=== PATIENT | female | born 1990 | race Caucasian/White ===

== ENCOUNTER 2018-05-16 20:33 | Emergency (ER) | payer OTHER, SELFPAY ==
--- OUTSIDE RECORDS SUMMARY | 2018-05-16 20:36 | XMS REPORT ---
:1990 [facility] Address [address] [place] [address] Care Team Providers Name Role Phone UNKNOWN, REFFERING Primary Care Provider Unavailable JANNIE PICKARD Unavailable Unavailable Problems This patient has no known problems. Allergies, Adverse Reactions, Alerts This patient has no known allergies or adverse reactions. Medications This patient has no known medications. Results Test Description Test Time Test Comments Text Results Atomic Results Result Comments RPR, Qual 2016-09-20 03:21:00 Test Item Value Reference Range Comments RPR (test code=RPR) Non-Reactive Non-Reactive Thyroid Stimulating Hormone (TSH)2016-09-19 21:00:00 Test Item Value Reference Range Comments TSH (test code=TSH) 1.42 mIU/mL 0.270-4.200 [id number] 03:12:00 Test Item Value Reference Range Comments Amphetamine (test code=AMPH) Negative Negative For diagnostic purposes only, positive results should always be assessedin conjunctionwith the patient's medical history,clinical examination and otherfindings.To fulfill legal requirements, a more specific alternate chemical methodmust be used inorder to obtain a Confirmed analytical result. GC/MS is the preferred confirmatory method. Barbiturates (test code=STEFAN) Negative Negative Benzodiazepine (test Negative Negative code=SENTHIL) Cocaine (test code=COCA) Negative Negative Methadone (test code=MTHD) Negative Negative Opiates (test code=OPIA) Negative Negative PCP (test code=PCP) Negative Negative Propoxyphene (test Negative Negative code=PROPOX) THC (test code=THC) Negative Negative Alcohol, Urine (test <0.01 g/dL 0.00-0.01 code=ETOHU) BHCG, Serum, [id number] 02:02:00 Test Item Value Reference Range Comments Preg Qual [Se] (test code=BSHCG) POSITIVE Negative Alcohol/Ethanol, [id number] 01:51:00 Test Item Value Reference Range Comments Alcohol, Ethyl (test 0.00 g/dL 0.00-0.01 Intoxicated 0.080 g/dL or code=ETOH) more Urinalysis [id number] 00:18:00 Test Item Value Reference Range Comments Color (test code=COLOR) Yellow Yellow,Straw,Pl yellow Clarity (test code=CLAR) Clear Clear Specific [place] (test 1.031 1.001-1.035 code=SPGR) pH (test code=PH) 6.5 5.0-9.0 Ketone (test code=KET) 5 mg/dL Negative Glucose (test code=GLUCUR) Negative mg/dL Negative Protein (test code=PROT) Negative mg/dL Negative Bilirubin (test code=BILI) Negative mg/dL Negative Occult Blood (test Negative Negative code=UDOB) Urobilinogen (test 0.2 mg/dL 0.2-1.0 code=UROB) Nitrite (test code=NIT) Negative Negative Leuk Esterase (test Negative Negative code=LEUK) Micros Exam (test Indicated code=MEXAM) Epithelial Cells (test 10-14 /LPF 0-30 code=EPI) WBC, Urine (test code=UWBC) None seen /HPF 0-5 RBC, Urine (test code=URBC) None Seen /HPF 0-5 Bacteria (test code=BACT) Few /HPF Crystals (test code=AZAR) Few Calcium Oxalate /HPF Comprehensive Metabolic [id number] 00:16:00 Test Item Value Reference Range Comments Sodium (test code=NA) 137 mmol/L 135-145 Potassium (test code=K) 3.7 mmol/L 3.5-5.1 Chloride (test code=CL) 101 mmol/L 98-105 Carbon Dioxide (test 24 mmol/L 22-29 code=CO2) Glucose (test code=GLU) 86 mg/dL 70-115 Blood Urea Nitrogen 9 mg/dL 6-20 (test code=BUN) Creatinine (test 0.7 mg/dL 0.5-0.9 code=CREAT) Calcium (test code=CA) 9.2 mg/dL 8.3-10.5 Prot Total (test 6.6 g/dL 6.4-8.3 code=TP) Albumin (test code=ALB) 3.9 g/dL 3.5-5.2 A/G Ratio (test 1.4 Ratio code=AGRATIO) Globulin (test 2.7 2.9-3.1 code=GLOB) Bili Total (test <0.1 mg/dL 0.1-0.9 code=TBIL) Alk Phos (test 84 U/L 35-104 code=APHOS) AST (test code=AST) 20 U/L 1-32 ALT (test code=ALT) 28 U/L 1-33 BUN/Creatinine Ratio 12.9 (test code=BCRATIO) Anion Gap (test 12 mmol/L 7-16 code=AGAP) Estimated GFR (test >60 mL/min/1.73m2 eGFR (estimated Glomerular code=GFR) Filtration Rate) is an estimated value,calculated from the patient's serum creatinine using the MDRD equation.It is NOT the patient's actual GFR. The eGFR provides a more clinicallyuseful measure of kidney disease than serum creatinine alone.This calculation takes sex and race into account, if the informationis provided. If the race is not provided, and the patient isAfrican-[place], multiply by 1.212. If sex is not provided, and thepatient is female, multiply by 0.742. Results for patients <18 years ofage have not been validated by the MDRD study and should be interpretedwith caution.eGFR Result Interpretation:eGFR > or=60 is in the Normal RangeeGFR < 60 may mean kidney diseaseeGFR < 15 may mean kidney failureRanges recommended by the National Kidney Foundation,http://nkdep.nih .gov CBC with [id number] 00:03:00 Test Item Value Reference Range Comments WBC (test code=WBC) 9.1 K/cumm 4.4-10.5 RBC (test code=RBC) 4.35 M/cumm 3.75-5.20 Hemoglobin (test code=HGB) 12.4 gm/dL 12.2-14.8 Hematocrit (test code=HCT) 38.0 % 36.5-44.4 MCV (test code=MCV) 87.2 fL 80-100 MCH (test code=MCH) 28.4 pg 27.0-32.5 MCHC (test code=MCHC) 32.6 g/dL 32.0-37.5 RDW (test code=RDW) 15.6 % 11.5-14.5 Platelet Count (test code=PLTCT) 183 K/cumm 140-440 MPV (test code=MPV) 8.8 fL Diff Method (test code=DIFFM) Auto Neutrophil (test code=NEUT) 69.9 % 36-70 Lymphocyte (test code=LYMPH) 24.9 % 12-44 Monocyte (test code=MONO) 3.7 % 0-11 Eosinophil (test code=EOS) 1.2 % 0-7 Basophil (test code=BASO) 0.2 % 0-2 Neutro Abs (test code=ANEUT) 6.3 K/cumm 1.6-7.4 Lymph Abs (test code=ALYMPH) 2.3 K/cumm 0.5-4.6 [place] Abs (test code=AMONO) 0.3 K/cumm 0.0-1.2 Eos Abs (test code=AEOS) 0.11 K/cumm 0.00-0.74 Baso Abs (test code=ABASO) 0.0 K/cumm 0.00-0.21
[2018-05-16 21:23] LABS: Urine Blood NEGATIVE (NEG); Urine Glucose NEGATIVE (NEG); Urine Protein NEGATIVE (NEG)
[2018-05-16 21:29] LABS: Absolute Lymphocytes (CBC) 1.8 K/uL (0.7-4.9); Absolute Monocytes 0.5 K/uL (0.1-1.3); Absolute Neutrophil 3.7 K/uL (1.8-8.0); Basophils % 0.9 % (0-1.3); Eosinophils % 2.5 % (0-4.4); Hematocrit 41.1 % (36.0-45.0); Lymphocytes % 28.7 % (15.3-44.8); MPV 8.7 fL (7.6-11.3); Monocytes % 7.9 % (3.3-12.3); RBC Red Blood Cell Count 4.87 M/uL (3.86-4.86)
[2018-05-16 21:45] LABS: ALT/SGPT 25 U/L (12-78); AST/SGOT 19 U/L (15-37); Albumin 3.6 g/dL (3.4-5.0); Alkaline Phosphatase 98 U/L (45-117); BUN Blood Urea Nitrogen 10 mg/dL (7-18); Bicarbonate 26 mmol/L (21-32); Bilirubin Direct < 0.1 mg/dL (0-0.2); Bilirubin Total 0.1 mg/dL (0.2-1.0); Glucose Level 88 mg/dL (74-106); Lipase 109 U/L (73-393); Potassium 3.8 mmol/L (3.5-5.1); Protein, Total 7.3 g/dL (6.4-8.2); Sodium Level 141 mmol/L (136-145)
[2018-05-16] MEDS ORDERED: ONDANSETRON 4 MG/2 ML VIAL ONE (21:51)
[2018-05-16] MEDS ORDERED: MORPHINE 4 MG/ML SYR ONE (21:51)
--- NOTE | 2018-05-17 00:08 | ER ---
Nurse's Notes [facility] Name: Mikki Stevenson Age: 27 yrs Sex: Female : 1990 Arrival Date: 05/16/2018 Time: 20:36 Bed 23 Private MD: Jv Vivar Diagnosis: Biliary colic Presentation: 05/16 20:49 Presenting complaint: Patient states: right lower abd pain X2 hours. pt stated pain is ak1 intermittent after eating taco gallardo for dinner. pt c/o vomiting. pt stated she has had an IUD for 1 yr that has recently started giving her cramps sinc 2018. Transition of care: patient was not received from another setting of care. Onset of symptoms was May 16, 2018. Risk Assessment: Do you want to hurt yourself or someone else? Patient reports no desire to harm self or others. Care prior to arrival: None. 20:49 Method Of Arrival: Ambulatory ak1 20:49 Acuity: SOURAV 3 ak1 21:33 Initial Sepsis Screen: Does the patient meet any 2 criteria? No. Patient's initial mg2 sepsis screen is negative. Does the patient have a suspected source of infection? No. Patient's initial sepsis screen is negative. Triage Assessment: 20:51 General: Appears in no apparent distress. uncomfortable, obese, Behavior is cooperative.ak1 FACE BOSS: 20:[address], no cycles ak1 Historical: - Allergies: 20:51 Codeine; ak1 - Home Meds: 20:51 None [Active]; ak1 - PMHx: 20:51 Hypertension; ak1 - PSHx: 20:51 Appendectomy; ; Tonsillectomy; right arm sx s/p fx; ak1 - Immunization history:: Adult Immunizations unknown. - Social history:: Smoking status: Patient uses tobacco products, smokes one-half pack cigarettes per day. - Ebola Screening: : No symptoms or risks identified at this time. Screenin:52 Abuse screen: Denies threats or abuse. Denies injuries from another. Nutritional ak1 screening: No deficits noted. Tuberculosis screening: No symptoms or risk factors identified. Fall Risk None identified. Assessment: 21:27 General: Appears in no apparent distress. comfortable, Behavior is calm, cooperative. mg2 Pain: Complains of pain in RUQ Pain does not radiate. Pain currently is 6 out of 10 on a pain scale. Quality of pain is described as aching, squeezing, Pain began gradually, 2 hours ago. Is intermittent. Neuro: Level of Consciousness is awake, alert, obeys commands, Oriented to person, place, time, situation. Cardiovascular: Capillary refill < 3 seconds Patient's skin is warm and dry. Respiratory: Airway is patent Respiratory effort is even, unlabored, Respiratory pattern is regular, symmetrical. GI: Abdomen is round non-distended, Abd is soft X 4 quads in abdomen diffusely. : No signs and/or symptoms were reported regarding the genitourinary system. EENT: No signs and/or symptoms were reported regarding the EENT system. Derm: Skin is intact, is healthy with good turgor, Skin is pink, warm \T\ dry. normal. Musculoskeletal: Circulation, motion, and sensation intact. Capillary refill < 3 seconds. 05/17 00:30 Reassessment: Patient denies pain at this time. Patient states feeling better. mg2 Vital Signs: 04 20:51 BP 132 / 81; Pulse 75; Resp 20; Temp 98.0(TE); Pulse Ox 98% on R/A; Weight 113.4 kg ak1 (R); Height 5 ft. 2 in. (157.48 cm) (R); Pain 10/10; 23:00 BP 123 / 69; Pulse 65; Resp 18; Pulse Ox 100% on R/A; mg2 20:51 Body Mass Index 45.73 (113.40 kg, 157.48 cm) ak1 ED Course: 20:36 Patient arrived in ED. es 20:37 Jv Vivar MD is Private Physician. es 20:50 Triage completed. ak1 20:51 Arm band placed on Patient placed in an exam room, on a stretcher, Patient notified of ak1 wait time. 20:52 Benton Henry MD is Attending Physician. tw4 20:52 Moe Gaines, JANEEN is Primary Nurse. mg2 20:52 Patient has correct armband on for positive identification. Bed in low position. Call ak1 light in reach. Side rails up X 1. Adult w/ patient. 21:13 Initial lab(s) drawn, by me, sent to lab. Inserted saline lock: 22 gauge in right lt1 antecubital area, using aseptic technique. 21:33 No provider procedures requiring assistance completed. mg2 21:42 US Abdomen Limited In Process Unspecified. EDMS 21:47 Patient moved back from ultrasound. hilaria 05/17 00:06 Jv Vviar MD is Referral Physician. tw4 00:06 Spike Samuels MD is Referral Physician. tw4 00:30 IV discontinued, intact, bleeding controlled, No redness/swelling at site. Pressure mg2 dressing applied. Administered Medications: 05/16 21:44 Drug: morphine 4 mg Route: IVP; Site: right antecubital; mg2 23:00 Follow up: Response: No adverse reaction; Marked relief of symptoms mg2 21:44 Drug: Zofran 4 mg Route: IVP; Site: right antecubital; mg2 23:00 Follow up: Response: No adverse reaction; Marked relief of symptoms mg2 Outcome: 05/17 00:07 Discharge ordered by . tw4 00:31 Discharged to home ambulatory, with family. mg2 00:31 Condition: stable 00:31 Discharge instructions given to patient, family, Instructed on discharge instructions, follow up and referral plans. medication usage, Demonstrated understanding of instructions, follow-up care, medications, Prescriptions given X 1. 00:31 Patient left the ED. mg2 Signatures: Dispatcher [employer] Nadia Woods Amber, RN RN ak1 Fareed Piedra jd, Terrence, MD MD tw4 Moe Gaines RN RN mg2 Bambi Long lt1
--- NOTE | 2018-05-17 00:09 | EDPHYS ---
Physician Documentation [facility] Name: Mikki Stevenson Age: 27 yrs Sex: Female : 1990 Arrival Date: 05/16/2018 Time: 20:36 Bed 23 Private MD: Jv Vivar ED Physician Benton Henry HPI: 05/17 00:03 This 27 yrs old Female presents to ER via Ambulatory with complaints of Side tw4 pain. 00:03 The patient presents with abdominal pain in the right upper quadrant. Onset: The tw4 symptoms/episode began/occurred today. The symptoms do not radiate. Associated signs and symptoms: none. The symptoms are described as sharp, shooting. Modifying factors: The symptoms are alleviated by remaining still, the symptoms are aggravated by coughing, breathing deeply, movement, pressure. Severity of pain: At its worst the pain was moderate in the emergency department the pain is unchanged. The patient has not experienced similar symptoms in the past. [employer] SPECIALIST: 05/16 20:[address], no cycles ak1 Historical: - Allergies: 20:51 Codeine; ak1 - Home Meds: 20:51 None [Active]; ak1 - PMHx: 20:51 Hypertension; ak1 - PSHx: 20:51 Appendectomy; ; Tonsillectomy; right arm sx s/p fx; ak1 - Immunization history:: Adult Immunizations unknown. - Social history:: Smoking status: Patient uses tobacco products, smokes one-half pack cigarettes per day. - Ebola Screening: : No symptoms or risks identified at this time. ROS: 05/17 00:03 Constitutional: Negative for fever, chills, and weight loss, Eyes: Negative for injury, tw4 pain, redness, and discharge, Cardiovascular: Negative for chest pain, palpitations, and edema, Respiratory: Negative for shortness of breath, cough, wheezing, and pleuritic chest pain, Back: Negative for injury and pain, MS/Extremity: Negative for injury and deformity, Skin: Negative for injury, rash, and discoloration. Neuro: Negative for headache, weakness, numbness, tingling, and seizure. Abdomen/GI: Positive for abdominal pain, nausea and vomiting, nausea, vomiting, and diarrhea, nausea, vomiting, Negative for constipation, black/tarry stool, rectal pain, rectal bleeding, bowel incontinence. Exam: 00:03 Constitutional: This is a well developed, well nourished patient who is awake, alert, tw4 and in no acute distress. Head/Face: Normocephalic, atraumatic. Chest/axilla: Normal chest wall appearance and motion. Nontender with no deformity. No lesions are appreciated. Cardiovascular: Regular rate and rhythm with a normal S1 and S2. No gallops, murmurs, or rubs. Normal PMI, no JVD. No pulse deficits. Respiratory: Lungs have equal breath sounds bilaterally, clear to auscultation and percussion. No rales, rhonchi or wheezes noted. No increased work of breathing, no retractions or nasal flaring. Back: No spinal tenderness. No costovertebral tenderness. Full range of motion. Skin: Warm, dry with normal turgor. Normal color with no rashes, no lesions, and no evidence of cellulitis. MS/ Extremity: Pulses equal, no cyanosis. Neurovascular intact. Full, normal range of motion. Neuro: Awake and alert, GCS 15, oriented to person, place, time, and situation. Cranial nerves II-XII grossly intact. Motor strength 5/5 in all extremities. Sensory grossly intact. Cerebellar exam normal. Normal gait. 00:03 Abdomen/GI: Inspection: abdomen appears normal, Bowel sounds: normal, Palpation: moderate abdominal tenderness, in the right upper quadrant. Vital Signs: 05/16 20:51 BP 132 / 81; Pulse 75; Resp 20; Temp 98.0(TE); Pulse Ox 98% on R/A; Weight 113.4 kg ak1 (R); Height 5 ft. 2 in. (157.48 cm) (R); Pain 10/10; 23:00 BP 123 / 69; Pulse 65; Resp 18; Pulse Ox 100% on R/A; mg2 20:51 Body Mass Index 45.73 (113.40 kg, 157.48 cm) ak1 MDM: 20:52 Patient medically screened. tw4 05/17 00:03 Differential diagnosis: acute coronary syndrome, appendicitis, bowel obstruction. Data tw4 reviewed: vital signs, nurses notes. Counseling: I had a detailed discussion with the patient and/or guardian regarding: the historical points, exam findings, and any diagnostic results supporting the discharge/admit diagnosis, lab results, radiology results. Medication response: morphine markedly relieved the patient's pain. Symptoms have improved. Response to treatment: the patient's symptoms have mildly improved after treatment. 05/16 20:53 Order name: Basic Metabolic Panel; Complete Time: 23:53 mg2 05/16 23:53 Interpretation: Normal except: GFR 78. rust 05/16 20:53 Order name: CBC with Diff; Complete Time: 23:53 mg2 05/16 23:53 Interpretation: Normal except: RBC 4.87. tw4 05/16 20:53 Order name: Creatinine for Radiology; Complete Time: 23:54 mg2 05/16 23:54 Interpretation: Within normal limits: CRE 0.87. 4 05/16 20:53 Order name: Hepatic Function; Complete Time: 23:53 mg2 05/16 23:54 Interpretation: Normal except: BILIT 0.1; GLOB 3.7; A/G 1.0. rust 05/16 20:53 Order name: Lipase; Complete Time: 23:54 [facility] [place] 05/16 23:54 Interpretation: Within normal limits: LIP 109. tw4 05/16 21:14 Order name: Urine Dipstick--Ancillary (enter results); Complete Time: 23:54 ms 05/16 23:54 Interpretation: Within normal limits. rust 05/16 20:53 Order name: IV Saline Lock; Complete Time: 21:13 mg2 05/16 20:53 Order name: Labs collected and sent; Complete Time: 21:13 mg2 05/16 20:54 Order name: Urine Dipstick-Ancillary (obtain specimen); Complete Time: 21:04 [facility] [place] 05/16 21:14 Order name: Urine --Ancillary (enter results) ms 05/16 21:27 Order name: US Abdomen Limited tw4 Administered Medications: 05/16 21:44 Drug: morphine 4 mg Route: IVP; Site: right antecubital; mg2 23:00 Follow up: Response: No adverse reaction; Marked relief of symptoms mg2 21:44 Drug: Zofran 4 mg Route: IVP; Site: right antecubital; mg2 23:00 Follow up: Response: No adverse reaction; Marked relief of symptoms mg2 Disposition: 05/17/18 00:07 Discharged to Home. Impression: Biliary colic. - Condition is Stable. - Discharge Instructions: Biliary Colic, Adult. - Prescriptions for Ibuprofen 800 mg Oral Tablet - take 1 tablet by ORAL route every 8 hours As needed take with food; 30 tablet. - Medication Reconciliation Form, Thank You Letter, Antibiotic Education, Prescription Opioid Use form. - Follow up: Jv Vivar MD; When: Upon discharge from the Emergency Department; Reason: If symptoms return, Recheck today's complaints, Continuance of care. Follow up: Spike Samuels MD; When: Upon discharge from the Emergency Department; Reason: If symptoms return, Recheck today's complaints, Continuance of care. - Problem is new. - Symptoms have improved. Signatures: Dispatcher [employer] EDMS Nohemi Lubin RN RN ak1 Benton Henry MD MD tw4 Moe Gaines RN RN mg2 Corrections: (The following items were deleted from the chart) 05/17 00:31 00:07 05/17/2018 00:07 Discharged to Home. Impression: Biliary colic. Condition is mg2 Stable. Forms are Medication Reconciliation Form, Thank You Letter, Antibiotic Education, Prescription Opioid Use. Follow up: Jv Vivar; When: Upon discharge from the Emergency Department; Reason: If symptoms return, Recheck today's complaints, Continuance of care. Follow up: Spike Samuels; When: Upon discharge from the Emergency Department; Reason: If symptoms return, Recheck today's complaints, Continuance of care. Problem is new. Symptoms have improved. tw4
--- NOTE | 2018-05-17 11:00 | RAD REPORT ---
EXAM DESCRIPTION: US - Abdomen Exam Limited - 05/16/2018 9:41 pm EXAM DESCRIPTION: Abdomen Exam Limited CLINICAL HISTORY: 27 years Female, ABD PAIN COMPARISON: None. FINDINGS: Liver: There is diffuse increased echotexture suggestive of fatty liver infiltration. Gallbladder: There is a stone within the gallbladder neck measuring 0.8 cm in diameter. The gallbladd er is nondistended. The gallbladder wall measures 0.3 cm which is within normal limits given lack of gallbladder distention. Common bile duct: Normal caliber measuring 0.4 cm in AP diameter. IMPRESSION: 1. There is a stone within the gallbladder neck with no objective findings of cholecysti tis at this time. A HIDA scan may be of additional benefit. 2. Diffuse fatty liver infiltration. Electronically signed by: Mitch Goldberg MD 05/16/2018 11:32 PM CDT Due to temporary technical issues with the PACS/Fluency reporting system, reports are being signed by the in house radiologist as a courtesy to ensure prompt reporting. The interpreting radiologist is f ully responsible for the content of the report.
== END 2018-05-17 00:31 | disposition home or self-care (01) ==
LOC: ER 20:33
DX: K80.50 Calculus of bile duct without cholangitis or cholecystitis without obstruction (principal); I10 Essential (primary) hypertension; F17.210 Nicotine dependence, cigarettes, uncomplicated; Z91.048 Other nonmedicinal substance allergy status
CPT/HCPCS: 36415; 76705; 80048; 80076; 81003; 81025; 83690; 85025; 96374; 96375; 99284; J2405

== ENCOUNTER 2018-11-14 09:33 | Emergency (ER) | payer OTHER ==
[2018-11-14] MEDS ORDERED: KETOROLAC 30 MG/ML INJ ONE (10:44)
[2018-11-14 11:00] LABS: Absolute Lymphocytes (CBC) 1.8 K/uL (0.7-4.9); Basophils % 0.8 % (0-1.3); Hematocrit 39.9 % (36.0-45.0); Lymphocytes % 30.7 % (15.3-44.8); MPV 8.5 fL (7.6-11.3); RBC Red Blood Cell Count 4.69 M/uL (3.86-4.86)
[2018-11-14] MEDS ORDERED: VANCOMYCIN/NS 1 gm 1 GM/250 ML BAG IV ONE (11:00)
--- NOTE | 2018-11-14 15:59 | ER ---
Nurse's Notes [facility] Name: Mikki Stevenson Age: 27 yrs Sex: Female : 1990 Arrival Date: 11/14/2018 Time: 09:38 Bed 8 Private MD: Jv Vivar Diagnosis: Conjunctivitis Presentation: 11/14 09:42 Presenting complaint: Patient states: I have had right eye swelling since , I la1 went to there ER on Wednesday and they gave me eye drops but my eye is much more swollen and painful, the light hurts it too. Transition of care: patient was not received from another setting of care. Onset of symptoms was November 14, 2018. Risk Assessment: Do you want to hurt yourself or someone else? Patient reports no desire to harm self or others. Initial Sepsis Screen: Does the patient meet any 2 criteria? No. Patient's initial sepsis screen is negative. Does the patient have a suspected source of infection? No. Patient's initial sepsis screen is negative. Care prior to arrival: None. 09:42 Method Of Arrival: Ambulatory la1 09:42 Acuity: SOURAV 2 la1 TEST RIDER: 19:20 LMP N/A - . tw2 Historical: - Allergies: 19:20 Codeine; tw2 - PMHx: 19:20 Hypertension; tw2 - Immunization history:: Adult Immunizations. - Social history:: Smoking status: Patient/guardian denies using alcohol, street drugs, The patient lives with family. - Ebola Screening: : Patient denies travel to an Ebola-affected area in the 21 days before illness onset. - Family history:: not pertinent. Screenin:07 Abuse screen: Denies threats or abuse. Nutritional screening: No deficits noted. tw2 Tuberculosis screening: No symptoms or risk factors identified. Fall Risk None identified. Assessment: 10:08 General: Appears in no apparent distress. comfortable, Behavior is calm, cooperative, aj1 appropriate for age. Pain: Complains of pain in right eye Pain does not radiate. Pain currently is 7 out of 10 on a pain scale. Neuro: Level of Consciousness is awake, alert, obeys commands, Oriented to person, place, time, situation, Reports blurred vision. Cardiovascular: Patient's skin is warm and dry. Respiratory: Airway is patent Respiratory effort is even, unlabored, Respiratory pattern is regular, symmetrical. GI: No signs and/or symptoms were reported involving the gastrointestinal system. : No signs and/or symptoms were reported regarding the genitourinary system. EENT: Eyes are tearing on right lower eyelid Sclera/Cornea are reddened in outer aspect of conjuctiva of right eye and inner aspect of conjuctiva of right eye redness and swelling noted around right eye. Derm: No signs and/or symptoms reported regarding the dermatologic system. Skin is pink, warm \T\ dry. normal. Musculoskeletal: No signs and/or symptoms reported regarding the musculoskeletal system. Circulation, motion, and sensation intact. 10:46 Reassessment: pt given 30 mg Toradal IV at this time, order faxed to pharmacy for tw2 Vancomycin 1 gm IV at this time, pt states she has an appt with Dr. Reddy at noon today. 11:07 Reassessment: Patient appears in no apparent distress at this time. No changes from tw2 previously documented assessment. Patient and/or family updated on plan of care and expected duration. Pain level reassessed. Patient is alert, oriented x 3, equal unlabored respirations, skin warm/dry/pink. 11:59 Reassessment: Patient appears in no apparent distress at this time. No changes from tw2 previously documented assessment. Patient and/or family updated on plan of care and expected duration. Pain level reassessed. Patient is alert, oriented x 3, equal unlabored respirations, skin warm/dry/pink. 12:07 Reassessment: Vancomycin 1 GM initiated to left AC IV. aj1 13:00 Reassessment: Patient appears in no apparent distress at this time. No changes from aj1 previously documented assessment. Patient and/or family updated on plan of care and expected duration. Pain level reassessed. Patient is alert, oriented x 3, equal unlabored respirations, skin warm/dry/pink. 13:55 Reassessment: Patient appears in no apparent distress at this time. No changes from aj1 previously documented assessment. Patient and/or family updated on plan of care and expected duration. Pain level reassessed. Patient is alert, oriented x 3, equal unlabored respirations, skin warm/dry/pink. Vancomycin is still infusing at this time. Will discharge patient as soon as infusion is completed. 14:22 Reassessment: Patient appears in no apparent distress at this time. No changes from aj1 previously documented assessment. Patient and/or family updated on plan of care and expected duration. Pain level reassessed. Patient is alert, oriented x 3, equal unlabored respirations, skin warm/dry/pink. Vital Signs: 09:49 BP 120 / 84; Pulse 86; Resp 16; Temp 97.4; Pulse Ox 100% on R/A; la1 11:07 BP 99 / 51; Pulse 74; Resp 17; Pulse Ox 98% on R/A; tw2 11:59 BP 97 / 64; Pulse 66; Resp 17; Pulse Ox 99% on R/A; tw2 13:00 BP 106 / 67; Pulse 75; Resp 18; Pulse Ox 100% on R/A; aj1 Visual Acuity: 09:56 Left Eye Visual acuity 20/30, Pupil size 4 mm, ; Right Eye Visual acuity 20/70, Pupil la1 size 4 mm, ; Both Eyes Visual acuity 20/30; Without Lenses; ED Course: 09:38 Patient arrived in ED. as 09:38 Jv Vivar MD is Private Physician. as 09:43 Triage completed. la1 09:49 Arm band placed on left wrist. la1 09:53 Gloria Lloyd, RN is Primary Nurse. tw2 10:07 Primary Nurse role handed off by Gloria Lloyd, RN aj1 10:07 Shalini Robin, RN is Primary Nurse. aj1 10:08 Bed in low position. Call light in reach. tw2 10:17 Bahman Adams MD is Attending Physician. ma2 10:42 Initial lab(s) drawn, by ky, sent to lab. Inserted saline lock: 22 gauge in right jb1 antecubital area, using aseptic technique. Blood collected. 12:00 Russel Estrada MD is Referral Physician. ma2 12:13 Awaiting: completion of IV abx prior to discharge. tw2 14:22 No provider procedures requiring assistance completed. IV discontinued, intact, aj1 bleeding controlled, No redness/swelling at site. Pressure dressing applied. Administered Medications: No medications were administered Outcome: 12:01 Discharge ordered by . ma2 14:22 Discharged to home ambulatory. aj1 14:22 Condition: good 14:22 Discharge instructions given to patient, Instructed on discharge instructions, follow up and referral plans. medication usage, Demonstrated understanding of instructions, follow-up care, medications, Prescriptions given X 1. 14:22 Patient left the ED. aj1 Signatures: Adria Barry1 Shalini Robin RN RN aj1 Bev Samuels Lee, RN RN la1 Gloria Lloyd RN RN tw2 Bahman Adams MD MD ma2
--- NOTE | 2018-11-14 15:59 | EDPHYS ---
Physician Documentation [facility] Name: Mikki Stevenson Age: 27 yrs Sex: Female : 1990 Arrival Date: 11/14/2018 Time: 09:38 Bed 8 Private MD: Jv Vivar ED Physician Bahman Adams HPI: 11/14 11:56 This 27 yrs old Female presents to ER via Ambulatory with complaints of Eye ma2 Swelling. 11:56 Onset: The symptoms/episode began/occurred gradually, 1 week(s) ago. Duration: the ma2 symptoms are continuous. Associated signs and symptoms: Pertinent positives: None. Severity of symptoms: At their worst the symptoms were moderate in the emergency department the symptoms are unchanged. The patient has not experienced similar symptoms in the past. has right eye pain and redness x 1 week, mild constant . 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 tw2 Historical: - Allergies: 19:20 Codeine; tw2 - PMHx: 19:20 Hypertension; tw2 - Immunization history:: Adult Immunizations. - Social history:: Smoking status: Patient/guardian denies using alcohol, street drugs, The patient lives with family. - Ebola Screening: : Patient denies travel to an Ebola-affected area in the 21 days before illness onset. - Family history:: not pertinent. ROS: 11:56 Constitutional: Negative for fever, chills, and weight loss. ma2 11:56 Eyes: Positive for blurry vision, discharge, tearing, Negative for itching, pain. 11:56 All other systems are negative. Exam: 11:56 Visual Acuity: Visual acuity is within normal limits. ma2 11:56 Constitutional: This is a well developed, well nourished patient who is awake, alert, and in no acute distress. Head/Face: Normocephalic, atraumatic. 11:56 ENT: Nares patent. No nasal discharge, no septal abnormalities noted. Tympanic membranes are normal and external auditory canals are clear. Oropharynx with no redness, swelling, or masses, exudates, or evidence of obstruction, uvula midline. Mucous membranes moist. Neck: Trachea midline, no thyromegaly or masses palpated, and no cervical lymphadenopathy. Supple, full range of motion without nuchal rigidity, or vertebral point tenderness. No Meningismus. Chest/axilla: Normal chest wall appearance and motion. Nontender with no deformity. No lesions are appreciated. Cardiovascular: Regular rate and rhythm with a normal S1 and S2. No gallops, murmurs, or rubs. Normal PMI, no JVD. No pulse deficits. Respiratory: Lungs have equal breath sounds bilaterally, clear to auscultation and percussion. No rales, rhonchi or wheezes noted. No increased work of breathing, no retractions or nasal flaring. Abdomen/GI: Soft, non-tender, with normal bowel sounds. No distension or tympany. No guarding or rebound. No evidence of tenderness throughout. Skin: Warm, dry with normal turgor. Normal color with no rashes, no lesions, and no evidence of cellulitis. MS/ Extremity: Pulses equal, no cyanosis. Neurovascular intact. Full, normal range of motion. 11:56 Eyes: Periorbital structures: cellulitis, Pupils: equal, round, and reactive to light and accomodation, Extraocular movements: intact throughout, Conjunctiva: injected, in the right eye, tearing noted, Corneas: are normal, Sclera: no appreciated abnormality, Anterior chamber: normal, Visual armstrong: are intact. Vital Signs: 09:49 BP 120 / 84; Pulse 86; Resp 16; Temp 97.4; Pulse Ox 100% on R/A; la1 11:07 BP 99 / 51; Pulse 74; Resp 17; Pulse Ox 98% on R/A; tw2 11:59 BP 97 / 64; Pulse 66; Resp 17; Pulse Ox 99% on R/A; tw2 13:00 BP 106 / 67; Pulse 75; Resp 18; Pulse Ox 100% on R/A; aj1 Visual Acuity: 09:56 Left Eye Visual acuity 20/30, Pupil size 4 mm, ; Right Eye Visual acuity 20/70, Pupil la1 size 4 mm, ; Both Eyes Visual acuity 20/30; Without Lenses; MDM: 10:17 Patient medically screened. ma2 11:56 Differential diagnosis: Foreign body in Acute iritis of Data reviewed: vital signs, ma2 nurses notes. Counseling: I had a detailed discussion with the patient and/or guardian regarding: the historical points, exam findings, and any diagnostic results supporting the discharge/admit diagnosis, the presence of at least one elevated blood pressure reading (>120/80) during this emergency department visit, radiology results, the need for outpatient follow up. Response to treatment: the patient's symptoms have markedly improved after treatment. ED course: i called dr. ramos who advised to send her to clinic now. he will advise in regard to further management and take it over in his office, i explained to her to return to er in this is getting worse as she may need to be transferred to inpatient optha . Administered Medications: No medications were administered Disposition: 11/14/18 12:01 Discharged to Home. Impression: Conjunctivitis. - Condition is Stable. - Discharge Instructions: Preseptal Cellulitis, Adult. - Prescriptions for Augmentin 875- 125 mg Oral Tablet - take 1 tablet by ORAL route every 12 hours for 10 days; 20 tablet. - Medication Reconciliation Form, Thank You Letter, Antibiotic Education, Prescription Opioid Use form. - Follow up: Russel Ramos MD; When: Today; Reason: Continuance of care. - Notes: see dr. Ramos at 1 pm today in his office Signatures: Shalini Robin RN RN aj1 Gloria Lloyd RN RN tw2 Bahman Adams MD MD ma2 Corrections: (The following items were deleted from the chart) 14:22 12:01 11/14/2018 12:01 Discharged to Home. Impression: Conjunctivitis. Condition is aj1 Stable. Forms are Medication Reconciliation Form, Thank You Letter, Antibiotic Education, Prescription Opioid Use. Follow up: Russel Ramos; When: Today; Reason: Continuance of care. ma2
[2018-11-14 18:42] VITALS: TEMP 97.4
[2018-11-14 18:45] VITALS: BP 106/67; O2SAT 100
== END 2018-11-14 14:22 | disposition home or self-care (01) ==
LOC: ER 09:33
DX: H10.9 Unspecified conjunctivitis (principal); Z88.6 Allergy status to analgesic agent
CPT/HCPCS: 85025; 36415; 99283; J3370

== ENCOUNTER 2019-02-13 00:56 | Emergency (ER) | payer OTHER, SELFPAY ==
--- OUTSIDE RECORDS SUMMARY | 2019-02-13 00:59 | XMS REPORT ---
:1990 [facility] Address [address] [place] [address] Care Team Providers Name Role Phone UNKNOWN, REFFERING Primary Care Provider Unavailable JANNIE PICKARD Unavailable Unavailable Payers Payer Name Policy Type Policy Number Effective Date Expiration Date Problems This patient has no known problems. Allergies, Adverse Reactions, Alerts Allergy Allergy Status Severity Reaction(s) Onset Inactive Treating Comments Name Type Date Date Clinician codeine DA Active U 2017-01 00:00:0 0 Medications This patient has no known medications. Results Test Description Test Time Test Comments Text Results Atomic Results Result Comments RPR, Qual 2016-09-20 03:21:00 Test Item Value Reference Range Comments RPR (test code=RPR) Non-Reactive Non-Reactive Thyroid Stimulating Hormone (TSH)2016-09-19 21:00:00 Test Item Value Reference Range Comments TSH (test code=TSH) 1.42 mIU/mL 0.270-4.200 [id number] 03:12:00 Test Item Value Reference Range Comments [...] (test <0.01 g/dL 0.00-0.01 code=ETOHU) BHCG, Serum, [id number] 02:02:00 Test Item Value Reference Range Comments Preg Qual [Se] (test code=BSHCG) POSITIVE Negative Alcohol/Ethanol, [id number] 01:51:00 Test Item Value Reference Range Comments Alcohol, Ethyl (test 0.00 g/dL 0.00-0.01 Intoxicated 0.080 g/dL or code=ETOH) more Urinalysis [id number] 00:18:00 Test Item Value Reference Range Comments Color (test code=COLOR) Yellow Yellow,Straw,Pl yellow Clarity (test code=CLAR) Clear Clear Specific [place] (test 1.031 1.001-1.035 code=SPGR) pH (test code=PH) [...] code=AZAR) Few Calcium Oxalate /HPF Comprehensive Metabolic [id number] 00:16:00 Test Item Value Reference Range Comments [...] race is not provided, and the patient isAfrican-Italian, multiply by 1.212. If sex is not [...] the National Kidney Foundation,http://nkdep.nih .gov CBC with [id number] 00:03:00 Test Item Value Reference Range Comments [...] Lymph Abs (test code=ALYMPH) 2.3 K/cumm 0.5-4.6 Major Abs (test code=AMONO) 0.3 K/cumm 0.0-1.2 Eos Abs (test code=AEOS) 0.11 K/cumm 0.00-0.74 Baso Abs (test code=ABASO) 0.0 K/cumm 0.00-0.21
--- NOTE | 2019-02-13 02:25 | ER ---
Nurse's Notes [facility] Name: Mikki Stevenson Age: 28 yrs Sex: Female : 1990 Arrival Date: 02/13/2019 Time: 00:58 Bed 5 Private MD: Diagnosis: Influenza due to certain identified influenza viruses Presentation: 02/13 01:12 Presenting complaint: Patient states: fever, cough, chills, \T\ V/D x 3 days. Transition aa1 of care: patient was not received from another setting of care. Onset of symptoms was February 09, 2019. Risk Assessment: Do you want to hurt yourself or someone else? Patient reports no desire to harm self or others. Initial Sepsis Screen: Does the patient meet any 2 criteria? HR > 90 bpm. Does the patient have a suspected source of infection? No. Patient's initial sepsis screen is negative. Care prior to arrival: None. 01:12 Method Of Arrival: Ambulatory aa1 01:12 Acuity: SOURAV 4 aa1 Triage Assessment: 01:14 General: Appears in no apparent distress. comfortable, obese, Behavior is calm, aa1 cooperative, appropriate for age. 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 - Social history:: Smoking status: Patient/guardian denies using tobacco. - Ebola Screening: : Patient denies exposure to infectious person Patient denies travel to an Ebola-affected area in the 21 days before illness onset. Screenin:20 Abuse screen: Denies threats or abuse. Nutritional screening: No deficits noted. bb Tuberculosis screening: No symptoms or risk factors identified. Fall Risk None identified. Assessment: 01:20 General: Appears in no apparent distress. Behavior is calm, cooperative. Pain:. Neuro: bb Level of Consciousness is awake, alert, obeys commands, Oriented to person, place, time, situation. Cardiovascular: Heart tones S1 S2 present Capillary refill < 3 seconds Patient's skin is warm and dry. Respiratory: Respiratory effort is even, unlabored, Respiratory pattern is regular, Breath sounds are clear bilaterally. GI: No deficits noted. No signs and/or symptoms were reported involving the gastrointestinal system. Derm: Skin is pink, warm \T\ dry. Musculoskeletal: Circulation, motion, and sensation intact. 02:30 Reassessment: Patient is alert, oriented x 3, equal unlabored respirations, skin bb warm/dry/pink. pt verbalized understanding of and agrees to plan of care discharge instructions given pt ambulated with steady gait to exit accompanied by family. Vital Signs: 01:14 BP 127 / 68; Pulse 91; Resp 18; Temp 97.7; Pulse Ox 98% on R/A; Weight 104.33 kg; aa1 Height 5 ft. 3 in. (160.02 cm); Pain 7/10; 02:30 BP 105 / 50; Pulse 77; Resp 14 S; Pulse Ox 96% on R/A; bb 01:14 Body Mass Index 40.74 (104.33 kg, 160.02 cm) aa1 ED Course: 00:58 Patient arrived in ED. ds1 00:58 [facility] kb 00:58 Tashi Borden MD is Attending Physician. kb 01:14 Triage completed. aa1 01:14 Arm band placed on right wrist. aa1 01:20 Patient has correct armband on for positive identification. Bed in low position. Call bb light in reach. Side rails up X 1. Adult w/ patient. Pulse ox on. NIBP on. Warm blanket given. 01:29 Flu and/or RSV swab sent to lab. Strep swab sent to lab. bb 01:41 Chest Single View XRAY In Process Unspecified. EDMS 02:31 No provider procedures requiring assistance completed. Patient did not have IV access bb during this emergency room visit. Administered Medications: No medications were administered Outcome: 02:24 Discharge ordered by . kb 02:31 Discharged to home via ambulance, with family. bb 02:31 Condition: stable 02:31 Discharge instructions given to patient, Instructed on discharge instructions, follow up and referral plans. Demonstrated understanding of instructions, follow-up care. 02:31 Patient left the ED. bb Signatures: Dispatcher [employer] EDMS Katrina Doss FNP-C FNP-Ckb Autenrieth, Alissa, RN RN aa1 Thea Flores ds1 Grossman, Drea, RN RN bb
--- NOTE | 2019-02-13 02:26 | EDPHYS ---
Physician Documentation [facility] Name: Mikki Stevenson Age: 28 yrs Sex: Female : 1990 Arrival Date: 02/13/2019 Time: 00:58 Bed 5 Private MD: ED Physician Tashi Borden HPI: 02/13 01:58 This 28 yrs old Female presents to ER via Ambulatory with complaints of Flu kb Symptoms. 01:58 The patient or guardian reports cough, that is intermittent, described as mild, with no kb sputum, flu symptoms, low-grade fever, myalgias. Onset: The symptoms/episode began/occurred 3 day(s) ago. Severity of symptoms: At their worst the symptoms were moderate, in the emergency department the symptoms are unchanged. Modifying factors: The symptoms are alleviated by nothing, the symptoms are aggravated by nothing. Associated signs and symptoms: Pertinent positives: diarrhea, fever, nausea, rhinorrhea, sore throat, vomiting. The patient has not experienced similar symptoms in the past. The patient has not recently seen a physician. 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 - Social history:: Smoking status: Patient/guardian denies using tobacco. - Ebola Screening: : Patient denies exposure to infectious person Patient denies travel to an Ebola-affected area in the 21 days before illness onset. ROS: 01:56 Neck: Negative for injury, pain, and swelling, Cardiovascular: Negative for chest pain, kb palpitations, and edema, Back: Negative for injury and pain, MS/Extremity: Negative for injury and deformity, Skin: Negative for injury, rash, and discoloration, Neuro: Negative for headache, weakness, numbness, tingling, and seizure. 01:56 Constitutional: Positive for body aches, chills, fatigue, fever, malaise. 01:56 ENT: Positive for rhinorrhea, sinus congestion. 01:56 Respiratory: Positive for cough. 01:56 Abdomen/GI: Positive for nausea, vomiting, and diarrhea. Exam: 01:58 Constitutional: This is a well developed, well nourished patient who is awake, alert, kb and in no acute distress. Head/Face: Normocephalic, atraumatic. Neck: Trachea midline, no thyromegaly or masses palpated, and no cervical lymphadenopathy. Supple, full range of motion without nuchal rigidity, or vertebral point tenderness. No Meningismus. Chest/axilla: Normal chest wall appearance and motion. Nontender with no deformity. No lesions are appreciated. Cardiovascular: Regular rate and rhythm with a normal S1 and S2. No gallops, murmurs, or rubs. Normal PMI, no JVD. No pulse deficits. Respiratory: Lungs have equal breath sounds bilaterally, clear to auscultation and percussion. No rales, rhonchi or wheezes noted. No increased work of breathing, no retractions or nasal flaring. Abdomen/GI: Soft, non-tender, with normal bowel sounds. No distension or tympany. No guarding or rebound. No evidence of tenderness throughout. Back: No spinal tenderness. No costovertebral tenderness. Full range of motion. Skin: Warm, dry with normal turgor. Normal color with no rashes, no lesions, and no evidence of cellulitis. MS/ Extremity: Pulses equal, no cyanosis. Neurovascular intact. Full, normal range of motion. Neuro: Awake and alert, GCS 15, oriented to person, place, time, and situation. Cranial nerves II-XII grossly intact. Motor strength 5/5 in all extremities. Sensory grossly intact. Cerebellar exam normal. Normal gait. 01:58 ENT: External ear(s): are unremarkable, Ear canal(s): are normal, TM's: fluid levels, bilaterally, Nose: is normal, Mouth: is normal, Posterior pharynx: is normal. Vital Signs: 01:14 BP 127 / 68; Pulse 91; Resp 18; Temp 97.7; Pulse Ox 98% on R/A; Weight 104.33 kg; aa1 Height 5 ft. 3 in. (160.02 cm); Pain 7/10; 02:30 BP 105 / 50; Pulse 77; Resp 14 S; Pulse Ox 96% on R/A; bb 01:14 Body Mass Index 40.74 (104.33 kg, 160.02 cm) aa1 MDM: 01:07 Patient medically screened. kb 01:56 Data reviewed: vital signs, nurses notes. Data interpreted: Pulse oximetry: on room air kb is 98 %. Interpretation: normal. 02:23 Counseling: I had a detailed discussion with the patient and/or guardian regarding: the kb historical points, exam findings, and any diagnostic results supporting the discharge/admit diagnosis, lab results, radiology results, the need for outpatient follow up, a family practitioner, to return to the emergency department if symptoms worsen or persist or if there are any questions or concerns that arise at home. 02/13 01:10 Order name: Flu; Complete Time: 02:21 kb 02/13 01:10 Order name: Strep; Complete Time: 02:23 kb 02/13 01:10 Order name: Chest Single View XRAY kb Administered Medications: No medications were administered Disposition: 02:59 Co-signature as Attending Physician, Tashi Borden MD. birgit Disposition: 02/13/19 02:24 Discharged to Home. Impression: Influenza due to certain identified influenza viruses. - Condition is Stable. - Discharge Instructions: Influenza, Adult, [id number]. - Medication Reconciliation Form, Thank You Letter, Antibiotic Education, Prescription Opioid Use form. - Follow up: Emergency Department; When: As needed; Reason: Worsening of condition. Follow up: Private Physician; When: 2 - 3 days; Reason: Recheck today's complaints, Continuance of care, Re-evaluation by your physician. Signatures: Dispatcher [employer] EDME Katrina Doss, MARIA ALEJANDRAC PHYSICIAN OFFICE SPECIALIST-Hannah Ortiz RN RN aa1 Tashi Borden MD MD pkl Ballard, Brenda, RN RN bb Corrections: (The following items were deleted from the chart) 02:25 01:58 ENT: External ear(s): are unremarkable, Ear canal(s): are normal, TM's: bulging, kb bilaterally, fluid levels, bilaterally, Nose: is normal, Mouth: is normal, Posterior pharynx: is normal, kb 02:31 02:24 02/13/2019 02:24 Discharged to Home. Impression: Influenza due to certain bb identified influenza viruses. Condition is Stable. Forms are Medication Reconciliation Form, Thank You Letter, Antibiotic Education, Prescription Opioid Use. Follow up: Emergency Department; When: As needed; Reason: Worsening of condition. Follow up: Private Physician; When: 2 - 3 days; Reason: Recheck today's complaints, Continuance of care, Re-evaluation by your physician. kb
[2019-02-13 02:42] VITALS: TEMP 97.7
[2019-02-13 02:44] VITALS: BP 105/50; O2SAT 96
--- NOTE | 2019-02-13 09:27 | RAD REPORT ---
EXAM DESCRIPTION: RAD - Chest Single View - 02/13/2019 1:25 am CLINICAL HISTORY: Cough and congestion, fever and chills COMPARISON: None. TECHNIQUE: AP portable chest image was obtained 0121 hours . FINDINGS: Lung volumes are low. There is slight motion degradation. Shallow inspiration accentuates lung markings. No consolidation or mass. Significant interstitial edema or infiltrate doubtful. Heart and vasculature are normal. No measurable pleural effusion and no pneumothorax. No acute bony abnorm ality seen. No acute aortic findings suspected. IMPRESSION: No focal mass or consolidation. Interstitial pattern is accentuated by body habitus and shallow inspiration. Minimal interstitial brian ma or infiltrate could be masked.
== END 2019-02-13 02:31 | disposition home or self-care (01) ==
LOC: ER 00:56
DX: J10.1 Influenza due to other identified influenza virus with other respiratory manifestations (principal); I10 Essential (primary) hypertension; Z88.5 Allergy status to narcotic agent
CPT/HCPCS: 71045; 87070; 87081; 87804; 99283

== ENCOUNTER 2019-04-25 06:43 | Emergency (ER) | payer OTHER ==
--- OUTSIDE RECORDS SUMMARY | 2019-04-25 06:46 | XMS REPORT ---
:1990 [facility] Address [address] [place] [address] Care Team Providers Name Role Phone UNKNOWN, [...] Comments TSH (test code=TSH) 1.42 mIU/mL 0.270-4.200 [id number] 03:12:00 Test Item Value Reference Range Comments [...] (test <0.01 g/dL 0.00-0.01 code=ETOHU) BHCG, Serum, [id number] 02:02:00 Test Item Value Reference Range Comments Preg Qual [Se] (test code=BSHCG) POSITIVE Negative Alcohol/Ethanol, [id number] 01:51:00 Test Item Value Reference Range Comments Alcohol, Ethyl (test 0.00 g/dL 0.00-0.01 Intoxicated 0.080 g/dL or code=ETOH) more Urinalysis [id number] 00:18:00 Test Item Value Reference Range Comments Color (test code=COLOR) Yellow Yellow,Straw,Pl yellow Clarity (test code=CLAR) Clear Clear Specific [place] (test 1.031 1.001-1.035 code=SPGR) pH (test code=PH) [...] code=AZAR) Few Calcium Oxalate /HPF Comprehensive Metabolic [id number] 00:16:00 Test Item Value Reference Range Comments [...] race is not provided, and the patient isAfrican-Sri Lankan, multiply by 1.212. If sex is not [...] the National Kidney Foundation,http://nkdep.nih .gov CBC with [id number] 00:03:00 Test Item Value Reference Range Comments [...] Lymph Abs (test code=ALYMPH) 2.3 K/cumm 0.5-4.6 Bledsoe Abs (test code=AMONO) 0.3 K/cumm 0.0-1.2 Eos Abs (test code=AEOS) 0.11 K/cumm 0.00-0.74 Baso Abs (test code=ABASO) 0.0 K/cumm 0.00-0.21
[2019-04-25] MEDS ORDERED: METOCLOPRAMIDE 10 MG/2mL INJ ONE (07:06)
[2019-04-25] MEDS ORDERED: DIPHENHYDRAMINE 50 MG/ML VIAL ONE (07:07)
[2019-04-25] MEDS ORDERED: NA CHLORIDE 0.9% 1,000 ML ONE (07:07)
[2019-04-25 07:39] LABS: Absolute Lymphocytes (CBC) 1.6 K/uL (0.7-4.9); Basophils % 0.6 % (0-1.3); Hematocrit 34.5 % (36.0-45.0); Lymphocytes % 24.5 % (15.3-44.8); MPV 8.7 fL (7.6-11.3); RBC Red Blood Cell Count 3.98 M/uL (3.86-4.86)
[2019-04-25 07:54] LABS: BUN Blood Urea Nitrogen 8 mg/dL (7-18); Bicarbonate 26 mmol/L (21-32); Glucose Level 87 mg/dL (74-106); Potassium 3.5 mmol/L (3.5-5.1); Sodium Level 140 mmol/L (136-145)
--- NOTE | 2019-04-25 08:34 | EDPHYS ---
Physician Documentation [facility] Name: Mikki Stevenson Age: 28 yrs Sex: Female : 1990 Arrival Date: 04/25/2019 Time: 06:48 Bed 15 Private MD: ED Physician Benton Henry HPI: 04/24 07:40 This 28 yrs old Female presents to ER via EMS with complaints of Nausea, jr8 Headache, 17 weeks preg. 07:40 The patient presents to the emergency department with nausea, vomiting. Possible jr8 causes: . The symptoms are aggravated by nothing. The symptoms are alleviated by nothing. Associated signs and symptoms: Pertinent positives: headache. Severity of symptoms: At their worst the symptoms were moderate in the emergency department the symptoms are unchanged. The patient has experienced a previous episode. The patient has been recently seen by a physician:. Patient stated that she has related n/v. Started to have headache the other day which she has had in the past but is becoming worse and not being relieved with OTC medications . 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 tw2 Historical: - Allergies: 06:54 Codeine; jd3 - Home Meds: 06:54 Vitamin Oral [Active]; jd3 - PMHx: 06:54 None; jd3 - PSHx: 06:54 ; Appendectomy; Tonsillectomy; Cholecystectomy; right arm; jd3 - Immunization history:: Adult Immunizations up to date. - Social history:: Smoking status: Patient denies any tobacco usage or history of. ROS: 07:40 Eyes: Negative for injury, pain, redness, and discharge, ENT: Negative for injury, jr8 pain, and discharge, Neck: Negative for injury, pain, and swelling, Cardiovascular: Negative for chest pain, palpitations, and edema, Respiratory: Negative for shortness of breath, cough, wheezing, and pleuritic chest pain, Back: Negative for injury and pain, MS/Extremity: Negative for injury and deformity, Skin: Negative for injury, rash, and discoloration. 07:40 Abdomen/GI: Positive for nausea and vomiting, Negative for abdominal pain, diarrhea, constipation, abdominal cramps, abdominal distension. 07:40 Neuro: Positive for headache. Exam: 07:40 Eyes: Pupils equal round and reactive to light, extra-ocular motions intact. Lids and jr8 lashes normal. Conjunctiva and sclera are non-icteric and not injected. Cornea within normal limits. Periorbital areas with no swelling, redness, or edema. ENT: Nares patent. No nasal discharge, no septal abnormalities noted. Tympanic membranes are normal and external auditory canals are clear. Oropharynx with no redness, swelling, or masses, exudates, or evidence of obstruction, uvula midline. Mucous membranes moist. Neck: Trachea midline, no thyromegaly or masses palpated, and no cervical lymphadenopathy. Supple, full range of motion without nuchal rigidity, or vertebral point tenderness. No Meningismus. Cardiovascular: Regular rate and rhythm with a normal S1 and S2. No gallops, murmurs, or rubs. Normal PMI, no JVD. No pulse deficits. Respiratory: Lungs have equal breath sounds bilaterally, clear to auscultation and percussion. No rales, rhonchi or wheezes noted. No increased work of breathing, no retractions or nasal flaring. Abdomen/GI: Soft, non-tender, with normal bowel sounds. No distension or tympany. No guarding or rebound. No evidence of tenderness throughout. Back: No spinal tenderness. No costovertebral tenderness. Full range of motion. Skin: Warm, dry with normal turgor. Normal color with no rashes, no lesions, and no evidence of cellulitis. MS/ Extremity: Pulses equal, no cyanosis. Neurovascular intact. Full, normal range of motion. Neuro: Awake and alert, GCS 15, oriented to person, place, time, and situation. Cranial nerves II-XII grossly intact. Motor strength 5/5 in all extremities. Sensory grossly intact. Cerebellar exam normal. Normal gait. Vital Signs: 06:54 BP 123 / 54; Pulse 93; Resp 16 S; Temp 98.3(TE); Pulse Ox 100% on R/A; Weight 122.47 kg jd3 (R); Height 5 ft. 2 in. (157.48 cm) (R); Pain 7/10; 07:45 BP 116 / 61; Pulse 84; Resp 17; Pulse Ox 100% on R/A; tw2 08:40 BP 129 / 79; Pulse 89; Resp 17; Pulse Ox 99% on R/A; tw2 06:54 Body Mass Index 49.38 (122.47 kg, 157.48 cm) jd3 MDM: 06:58 Patient medically screened. jr8 08:27 Data reviewed: vital signs, nurses notes, lab test result(s). Data interpreted: Pulse jr8 oximetry: on room air is 100 %. Interpretation: normal. Counseling: I had a detailed discussion with the patient and/or guardian regarding: the historical points, exam findings, and any diagnostic results supporting the discharge/admit diagnosis, lab results, the need for outpatient follow up, an OB/Gyne specialist, to return to the emergency department if symptoms worsen or persist or if there are any questions or concerns that arise at home. Response to treatment: the patient's symptoms have resolved after treatment, patient is well hydrated. 04/24 06:57 Order name: CBC with Diff; Complete Time: 07:48 jr8 04/24 06:57 Order name: Basic Metabolic Panel; Complete Time: 07:55 jr8 04/24 06:57 Order name: IV; Complete Time: 07:42 jr8 Administered Medications: 07:17 Drug: NS 0.9% 1000 ml Route: IV; Rate: 1 bolus; Site: right antecubital; tw2 08:45 Follow up: Response: No adverse reaction; IV Status: Completed infusion; IV Intake: tw2 1000ml 07:18 Drug: Reglan 10 mg Route: IVP; Site: right antecubital; tw2 08:50 Follow up: Response: No adverse reaction tw2 07:22 Drug: Benadryl 25 mg Route: IVP; Site: right antecubital; tw2 08:50 Follow up: Response: No adverse reaction tw2 Disposition: 04/25 07:01 Co-signature as Attending Physician, Benton Henry MD I agree with the assessment and tw4 plan of care. Disposition: 04/25/19 08:33 Discharged to Home. Impression: Nausea, Migraine. - Condition is Stable. - Discharge Instructions: Migraine Headache, Nausea, Adult. - Medication Reconciliation Form, Thank You Letter, Antibiotic Education, Prescription Opioid Use, Work release form form. - Follow up: Private Physician; When: 2 - 3 days; Reason: Recheck today's complaints, Continuance of care, Re-evaluation by your physician. - Problem is new. - Symptoms have improved. Signatures: Dispatcher [facility] Jaxon Lua PA PA jr8 Gloria Lloyd RN RN tw2 Timothy Moser RN RN jd3 Benton Henry MD MD tw4 Corrections: (The following items were deleted from the chart) 04/24 08:51 08:33 04/25/2019 08:33 Discharged to Home. Impression: Nausea; Migraine. Condition is tw2 Stable. Forms are Medication Reconciliation Form, Thank You Letter, Antibiotic Education, Prescription Opioid Use. Follow up: Private Physician; When: 2 - 3 days; Reason: Recheck today's complaints, Continuance of care, Re-evaluation by your physician. Problem is new. Symptoms have improved. jr8
--- NOTE | 2019-04-25 08:34 | ER ---
Nurse's Notes [facility] Name: Mikki Stevenson Age: 28 yrs Sex: Female : 1990 Arrival Date: 04/25/2019 Time: 06:48 Bed 15 Private MD: Diagnosis: Nausea;Migraine Presentation: 04/24 06:49 Chief complaint: EMS states: "The pt is currently 17 weeks and is having jd3 nausea and a headache today. she recently went to her OB and was told she has preeclampsia. her blood pressure was a little high, but it wasn't to high. she reported taking Tylenol at about 0400 and she is reporting it isn't really helping at all. she reports that she generally switches between taking aspirin and Tylenol.". Coronavirus screen: The patient has NOT traveled to a country currently being monitored by the [facility] within the last 14 days. The patient has NOT had contact with any known and/or suspected case of coronavirus. Proceed with normal triage procedures. Ebola Screen: Patient negative for fever greater than or equal to 101.5 degrees Fahrenheit, and additional compatible Ebola Virus Disease symptoms. Initial Sepsis Screen: Does the patient meet any 2 criteria? No. Patient's initial sepsis screen is negative. Does the patient have a suspected source of infection? No. Patient's initial sepsis screen is negative. Risk Assessment: Do you want to hurt yourself or someone else? Patient reports no desire to harm self or others. 06:49 Method Of Arrival: EMS: [facility] 06:49 Acuity: SOURAV 3 jd3 06:59 Onset of symptoms was April 25, 2019. jd3 Triage Assessment: 08:51 General: Behavior is calm, cooperative. 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 tw2 Historical: - Allergies: 06:54 Codeine; jd3 - Home Meds: 06:54 Vitamin Oral [Active]; jd3 - PMHx: 06:54 None; jd3 - PSHx: 06:54 ; Appendectomy; Tonsillectomy; Cholecystectomy; right arm; jd3 - Immunization history:: Adult Immunizations up to date. - Social history:: Smoking status: Patient denies any tobacco usage or history of. Screenin:57 Abuse screen: Denies threats or abuse. Nutritional screening: No deficits noted. jd3 Tuberculosis screening: No symptoms or risk factors identified. Fall Risk Ambulatory Aid- None/Bed Rest/Nurse Assist (0 pts). Gait- Normal/Bed Rest/Wheelchair (0 pts) Mental Status- Oriented to own ability (0 pts). Total Medrano Fall Scale indicates No Risk (0-24 pts). Assessment: 06:56 General: Appears in no apparent distress. uncomfortable. Pain: Complains of pain in jd3 head and abdomen Quality of pain is described as aching, crampy. Neuro: Level of Consciousness is awake, alert, obeys commands, Oriented to person, place, time, situation. Cardiovascular: Denies chest pain, Capillary refill < 3 seconds Patient's skin is warm and dry. Respiratory: Airway is patent Respiratory effort is even, unlabored, Respiratory pattern is regular, symmetrical, Denies cough, shortness of breath. GI: Abdomen is round non-distended, Abd is soft and non tender X 4 quads. Reports lower abdominal pain, upper abdominal pain, nausea, vomiting. : No signs and/or symptoms were reported regarding the genitourinary system. EENT: No signs and/or symptoms were reported regarding the EENT system. Derm: Skin is intact, Skin is dry, Skin is normal, Skin temperature is warm. Musculoskeletal: Circulation, motion, and sensation intact. Range of motion: intact in all extremities. 08:00 Reassessment: Patient appears in no apparent distress at this time. Patient and/or tw2 family updated on plan of care and expected duration. Pain level reassessed. Patient is alert, oriented x 3, equal unlabored respirations, skin warm/dry/pink. 08:41 Reassessment: Patient appears in no apparent distress at this time. Patient and/or tw2 family updated on plan of care and expected duration. Pain level reassessed. Patient is alert, oriented x 3, equal unlabored respirations, skin warm/dry/pink. Patient states feeling better. Patient states symptoms have improved. Vital Signs: 06:54 BP 123 / 54; Pulse 93; Resp 16 S; Temp 98.3(TE); Pulse Ox 100% on R/A; Weight 122.47 kg jd3 (R); Height 5 ft. 2 in. (157.48 cm) (R); Pain 7/10; 07:45 BP 116 / 61; Pulse 84; Resp 17; Pulse Ox 100% on R/A; tw2 08:40 BP 129 / 79; Pulse 89; Resp 17; Pulse Ox 99% on R/A; tw2 06:54 Body Mass Index 49.38 (122.47 kg, 157.48 cm) jd3 ED Course: 06:48 Patient arrived in ED. jd3 06:53 Triage completed. jd3 06:55 Arm band placed on. jd3 06:56 Jaxon Lua PA is PHCP. jr8 06:56 Benotn Henry MD is Attending Physician. jr8 06:58 Patient has correct armband on for positive identification. Placed in gown. Bed in low jd3 position. Call light in reach. Side rails up X 1. Pulse ox on. NIBP on. 07:15 Inserted saline lock: 20 gauge in right antecubital area, using aseptic technique. tw2 Blood collected. 07:42 Gloria Lloyd RN is Primary Nurse. tw2 08:50 No provider procedures requiring assistance completed. IV discontinued, intact, tw2 bleeding controlled, No redness/swelling at site. Pressure dressing applied. Administered Medications: 07:17 Drug: NS 0.9% 1000 ml Route: IV; Rate: 1 bolus; Site: right antecubital; tw2 08:45 Follow up: Response: No adverse reaction; IV Status: Completed infusion; IV Intake: tw2 1000ml 07:18 Drug: Reglan 10 mg Route: IVP; Site: right antecubital; tw2 08:50 Follow up: Response: No adverse reaction tw2 07:22 Drug: Benadryl 25 mg Route: IVP; Site: right antecubital; tw2 08:50 Follow up: Response: No adverse reaction tw2 Intake: 08:45 IV: 1000ml; Total: 1000ml. tw2 Outcome: 08:33 Discharge ordered by . jr8 08:50 Discharged to home ambulatory, with family. tw2 08:50 Condition: stable 08:50 Discharge instructions given to patient, family, Instructed on discharge instructions, follow up and referral plans. Demonstrated understanding of instructions, follow-up care. 08:51 Patient left the ED. tw2 Signatures: Jaxon Lua PA PA jr8 Gloria Lloyd RN RN tw2 Timothy Moser RN RN jd3
[2019-04-25 09:37] VITALS: BP 116/61; O2SAT 100
[2019-04-25 09:38] VITALS: TEMP 98.3
== END 2019-04-25 08:51 | disposition home or self-care (01) ==
LOC: ER 06:43
DX: O26.892 Other specified pregnancy related conditions, second trimester (principal); G43.909 Migraine, unspecified, not intractable, without status migrainosus; Z88.6 Allergy status to analgesic agent
CPT/HCPCS: 96361; 85025; 80048; 36415; 96375; 96374; 99284; J2765; J1200; J7030

== ENCOUNTER 2022-10-11 16:17 | Emergency (ER) | payer OTHER ==
--- OUTSIDE RECORDS SUMMARY | 2022-10-11 16:24 | XMS REPORT | Continuity of Care Document ---
:1990 Author Organization [facility] t Address [address] [facility] [address] [place] [address] Care Team Providers Name Role Phone UNKNOWN, REFFERING Primary Care Physician Unavailable Eric Feldman Attending Clinician Unavailable Roxana Bender Attending Clinician Unavailable Sagrario Oro Attending Clinician Unavailable DEMETRA MARTÍNEZ Attending Clinician Unavailable Demetra Conley Attending Clinician JESÚS HARTLEY Attending Clinician Unavailable Jesús Estrada Attending Clinician VALERY Attending Clinician Unavailable WESLEY Attending Clinician Unavailable CRISTOFER ESPINO Attending Clinician Unavailable TRENT RIVERA Attending Clinician Unavailable Dung Cutler Attending Clinician Unavailable MALORIE PICKETT Attending Clinician Unavailable Trent Rivera MD Attending Clinician Brian Phipps Attending Clinician Unavailable Only, Francisco Db Test Attending Clinician Unavailable Ebgopal DENTAL INTERNSHIPYimi Attending Clinician EBYIMI CHOWDARY Attending Clinician Unavailable Malorie Pickett PA-C Attending Clinician Loly Austin MD Attending Clinician Ultrasound, [facility] Attending Clinician Unavailable Jennifer Quinn MD Attending Clinician Ca Will MD Attending Clinician JENNIFER QUINN Attending Clinician Unavailable Nurse, [facility] Attending Clinician Unavailable Manda Hdez RN Attending Clinician Unavailable Ultrasound, [facility] Attending Clinician Unavailable Germán Everett MD Attending Clinician Doctor Unassigned, [place] Attending Clinician Unavailable 2, [facility] Attending Clinician Unavailable ZAYDA COOPER Attending Clinician Unavailable Shan Andres DO Attending Clinician ROSA CONTEH Attending Clinician Unavailable Provider, [facility] Attending Clinician Unavailable Rosa Melo Attending Clinician Lab, [facility] I Attending Clinician Unavailable LI COLVIN Attending Clinician Unavailable Kelsie Bansal Attending Clinician Jerry Mireles Attending Clinician Unavailable JANNIE CHAVEZ Attending Clinician Unavailable JOSUE PEREIRA Attending Clinician Unavailable ESTRELLITA MORALES Attending Clinician Unavailable KEE HALL Attending Clinician Unavailable CARLOTA NUÑEZ Attending Clinician Unavailable JUNIOR GARZON Attending Clinician Unavailable LEEROY CLIFTON Attending Clinician Unavailable ZAYDA SPEAR Attending Clinician Unavailable NELL VAUGHAN Attending Clinician Unavailable LOLY AUSTIN Admitting Clinician Unavailable Eric Feldman Admitting Clinician Unavailable VALERY Admitting Clinician Unavailable IHDE_G Admitting Clinician Unavailable Loly Austin MD Admitting Clinician Jerry Mireles Admitting Clinician Unavailable JANNIE CHAVEZ Admitting Clinician Unavailable ZAYDA SPEAR Admitting Clinician Unavailable ZHOU WILLINGHAM Admitting Clinician Unavailable Payers Payer Name Policy Type Policy Number Effective Date Expiration Date Sabra dorado [facility] [id number] 2019 CHOICE MEDICAID 00:00:00 [facility] [id number] 2018 CHOICE (MEDICAID 00:00:00 REPLACEMENT - HMO) Problems Condition Condition Condition Status Onset Resolution Last Treating Co mments Source Name Details Category Date Date Treatment Clinician Date Right Right Disease Active Univers upper upper 10-16 ity of quadrant quadrant 00:00: [place] abdominal abdominal [facility] pain pain Branch Musculoske Musculoske Disease Active U nivers letal pain letal pain 10-16 it y of 00:00: [place] [facility] Previous Previous Disease Active Unive rs 4-26 ity of section section 00:00: [place] [facility] History of History of Disease Active U nivers pre-eclamp pre-eclamp 4-26 it y of jairon jairon 00:00: [place] [facility] [place] History of History of Disease Active U nivers 4-26 ity of delivery delivery 00:00: [place] [facility] High-risk High-risk Disease Active Uni vers 4-26 ity of in second in second 00:00: [facility] s trimester trimester 00 [facility] BMI BMI Disease Active 2020- Univers 50.0-59.9, 50.0-59.9, 4-26 it y of adult adult 00:00: [place] [facility] Tobacco Tobacco Disease Active 2015-02 Univers use use 0-26 ity of disorder disorder 00:00: [address] Branch Menorrhagi Menorrhagi Problem Active [facility] Allergies, Adverse Reactions, Alerts Allergy Allergy Status Severity Reaction(s) Onset Inactive Treating Comm ents Source Name Type Date Date Clinician codeine DA Active U BREAKS OUT 2020-02 [facility] 1-22 Clear 00:00: [place] 00 [facility] codeine DA Active U 2019-0 [facility] 8-05 Clear 00:00: [place] 00 [facility] codeine DA Active U BREAKS OUT 2020-0 [facility] 8-05 Clear 00:00: [place] 00 [facility] codeine DA Active U 2019-0 [facility] 5-11 Clear 00:00: [place] 00 [facility] codeine DA Active U BREAKS OUT 2019-0 [facility] 5-11 Clear 00:00: [place] 00 [facility] codeine DA Active U 2016-02 [facility] 2-22 Clear 00:00: [place] 00 [facility] codeine DA Active U BREAKS OUT 2016-02 [facility] 2-22 Clear 00:00: [place] 00 [facility] Codeine Propensi Active Shortness of Rash U nivers ty to Breath 6-08 ity of adverse 00:00: [place] reaction Medical s Branch CODEINE DRUG Active High SOB Univers INGREDI 6-08 ity of 00:00: [place] [address] Medical Branch Codeine Allergy Active Severe Other [place] [facility] e Group Social History Social Habit Start Date Stop Date Quantity Comments Source ASSERTION 2020-05-12 [facility] 00:00:00 [facility] Exposure to 2021-11-16 2021-11-26 Not sure [facility] SARS-CoV-2 00:00:00 08:15:00 [facility] (event) [place] Alcohol intake 2021-11-26 2021-11-26 Ex-drinker [facility] 00:00:00 00:00:00 (finding) [facility] Tobacco use and 2020-06-10 2020-06-10 Smokeless tobacco Un iversity of exposure 00:00:00 00:00:00 non-user [facility] History of 2007-10-29 2016-07-20 Cigarette Smoker Universi ty of tobacco use 00:00:00 00:00:00 [facility] Sex [birth year] Universit y of 00:00:00 00:00:00 [facility] Smoking Status Start Date Stop Date Source Current Every Day [facility] Smoker Ex-smoker 2020-06-10 00:00:00 2020-06-10 00:00:00 [facility] [place] [facility] Medications Ordered Filled Start Stop Current Ordering Indication Dosage Frequency Signature Comments Components Source Medication Medication Date Date Medication? Clinician (SIG) Name Name dicyclomine 2021-02 No 20mg 20 mg, Uni vers (BENTYL) 0-12 10-12 Intramuscu ity of injection 14:15: 13:39 [place] 20 mg 00 :00 NOW, 1 Medical dose, On Branch 11/26/21 at 0915, MICHELLE ondansetron 2021-02 No 4mg 4 mg, Slow Univers (ZOFRAN 0-12 -12 IV Push, ity of (PF)) 13:30: 13:34 ONCE, 1 [place] injection 4 00 :00 dose, On Medi kody mg Wed Branch 11/26/21 at 0830, MICHELLE dicyclomine 2021-02 Yes [id number] 20mg Take 1 Univers 20 mg 0-12 tablet by ity of tablet 00:00: mouth 4 [place] 00 (four) Medical times Branch daily as needed for Abdominal pain. ondansetron 2021-02 Yes [id number] 4mg Take 1 Univers 4 mg 0-12 tablet by ity of disintegrat 00:00: mouth [place] ing tablet 00 every 8 Medica l (eight) Branch hours as needed for Nausea and Vomiting (N/V). mupirocin 2 Yes [id number] Apply to Univers % ointment 9-27 area(s) 3 ity of 00:00: (three) [place] 00 times Medical daily. Branch mupirocin 2 Yes [id number] Apply to Univers % ointment 9-27 area(s) 3 ity of 00:00: (three) [place] 00 times Medical daily. Branch sulfamethox 2021- No [id number] 1{tbl} Take 1 Univers azole-trime 9-27 10-05 tablet by it y of thoprim 00:00: 04:59 mouth [place] 800-160 mg 00 :00 every 12 Medic al per tablet (twelve) Branc h hours for 7 days. traMADoL 2021- No [id number] 50mg Take 1 Univer s (ULTRAM) 50 9-27 10-05 tablet by it y of mg tablet 00:00: 04:59 mouth [place] 00 :00 every 6 Medical (six) Branch hours as needed for Pain (scale 7-10) for up to 7 days. Indication s: acute pain amoxicillin 2021-0 2021- No [id number] 1{tbl} Take 1 Univers -clavulanat 09-01- tablet by it y of e 875-125 00:00: 04:59 mouth [place] mg per 00 :00 every 12 Medical tablet (twelve) Branch hours for 7 days. predniSONE 2021-0 2021- No [id number] 20mg Take 1 Univers 20 mg 09-01- tablet by ity of tablet 00:00: 04:59 mouth in [place] 00 :00 the Medical morning Branch and 1 tablet in the evening. Do all this for 3 days. hydroxyprog 202-0 Yes 275mg inject 1.1 Univers esterone,PF 7-27 mL under ity of , 275 00:00: the skin [place] mg/1.1 mL 00 weekly. Medical injection Branch hydroxyprog 2020-0 Yes 275mg inject 1.1 Univers esterone,PF 7-27 mL under ity of , 275 00:00: the skin [place] mg/1.1 mL 00 weekly. Medical injection Branch hydroxyprog 202-0 Yes 275mg inject 1.1 Univers esterone,PF 7-27 mL under ity of , 275 00:00: the skin [place] mg/1.1 mL 00 weekly. Medical injection Branch hydroxyprog 2020-0 Yes 275mg inject 1.1 Univers esterone,PF 7-27 mL under ity of , 275 00:00: the skin [place] mg/1.1 mL 00 weekly. Medical injection Branch aspirin 81 2020-0 Yes [id number] 81mg Take 1 Univers mg EC 6-07 9100 tablet by ity of tablet 00:00: mouth [place] 00 daily. Medical Branch aspirin 81 2020-0 Yes [id number] 81mg Take 1 Univers mg EC 6-07 9100 tablet by ity of tablet 00:00: mouth [place] 00 daily. Medical Branch aspirin 81 2020-0 Yes [id number] 81mg Take 1 Univers mg EC 6-07 9100 tablet by ity of tablet 00:00: mouth [place] 00 daily. Medical Branch aspirin 81 2020-0 Yes [id number] 81mg Take 1 Univers mg EC 6-07 9100 tablet by ity of tablet 00:00: mouth [place] 00 daily. Medical Branch PNV 2020-0 Yes [id number] Take 1 Univers 102-iron-fo 4-26 TAB-CAP/M2 it y of late-dha 00:00: by mouth [place] (VITAFOL FE 00 daily. Medica l PLUS) 90 mg Branch iron- 1 mg-200 mg Cap PNV 2020-0 Yes [id number] Take 1 Univers 102-iron-fo 4-26 TAB-CAP/M2 it y of late-dha 00:00: by mouth [place] (VITAFOL FE 00 daily. Medica l PLUS) 90 mg Branch iron- 1 mg-200 mg Cap PNV 2020-0 Yes [id number] Take 1 Univers 102-iron-fo 4-26 TAB-CAP/M2 it y of late-dha 00:00: by mouth [place] (VITAFOL FE 00 daily. Medica l PLUS) 90 mg Branch iron- 1 mg-200 mg Cap PNV 2020-0 Yes [id number] Take 1 Univers 102-iron-fo 4-26 TAB-CAP/M2 it y of late-dha 00:00: by mouth [place] (VITAFOL FE 00 daily. Medica l PLUS) 90 mg Branch iron- 1 mg-200 mg Cap Immunizations Ordered Filled Immunization Date Status Comments [facility] e Immunization Name Name TD 2020-11-04 Completed University of 00:00:00 [facility] TDAP 2020-11-04 Completed University of 00:00:00 [facility] TDAP 2020-11-04 Completed University of 00:00:00 [facility] TDAP 2020-11-04 Completed University of 00:00:00 [facility] Influenza Virus 2019-02-16 Completed Universit y of Vaccine Quad .5 mL 00:00:00 [facility] [place] [facility] 6+ MO Branch Influenza Virus 2019-02-16 Completed Universit y of Vaccine [place] .5 mL 00:00:00 [facility] [place] [facility] 6+ MO Branch Influenza Virus 2019-02-16 Completed Universit y of Vaccine [place] .5 mL 00:00:00 [facility] [place] [facility] 6+ MO Branch Influenza Virus 2019-02-16 Completed Universit y of Vaccine [place] .5 mL 00:00:00 [facility] [place] [facility] 6+ MO Branch HPV9 2018-11-10 Completed University of 00:00:00 [facility] HPV9 2018-11-10 Completed University of 00:00:00 [place] [facility] HPV9 2018-11-10 Completed University of 00:00:00 [place] [facility] HPV9 2018-11-10 Completed University of 00:00:00 [place] [facility] MMR 2013-01-05 Completed University of 00:00:00 [place] [facility] MMR 2013-01-05 Completed University of 00:00:00 [place] [facility] MMR 2013-01-05 Completed University of 00:00:00 [place] [facility] MMR 2013-01-05 Completed University of 00:00:00 [place] [facility] Td 2006-10-05 Completed University of 00:00:00 [place] [facility] Td 2006-10-05 Completed University of 00:00:00 [place] [facility] Td 2006-10-05 Completed University of 00:00:00 [place] [facility] Td 2006-10-05 Completed University of 00:00:00 [facility] Vital Signs Vital Name Observation Time Observation Value Comments Source Systolic blood 2021-11-26 14:00:00 123 mm[Hg] Univer sity of pressure [facility] Diastolic blood 2021-11-26 14:00:00 66 mm[Hg] Unive rsity of [facility] Heart rate 2021-11-26 14:00:00 62 /min [facility] Respiratory rate 2021-11-26 14:00:00 18 /min [facility] Oxygen saturation in 2021-11-26 14:00:00 97 /min [facility] Arterial blood by [facility] Pulse oximetry [place] Body temperature 2021-11-26 13:17:00 36.89 [facility] Body height 2021-11-26 13:17:00 157.5 cm [facility] Body weight 2021-11-26 13:17:00 113.399 kg [facility] BMI 2021-11-26 13:17:00 45.73 kg/m2 [facility] Systolic blood 2021-11-11 20:22:00 142 mm[Hg] Univer sity of pressure [facility] Diastolic blood 2021-11-11 20:22:00 89 mm[Hg] Unive rsity of pressure [facility] Heart rate 2021-11-11 20:22:00 90 /min [facility] Body temperature 2021-11-11 20:22:00 36.5 Halie [facility] Respiratory rate 2021-11-11 20:22:00 16 /min [facility] Body height 2021-11-11 20:22:00 160 cm Universi ty [facility] Medical [place] Body weight 2021-11-11 20:22:00 117.935 kg Universi ty [facility] BMI 2021-11-11 20:22:00 46.06 kg/m2 [facility] Oxygen saturation in 2021-11-11 20:22:00 98 /min University of Arterial blood by [facility] Pulse oximetry Branch Systolic blood 2021-09-01 18:36:00 116 mm[Hg] Univer sity of pressure [facility] Diastolic blood 2021-09-01 18:36:00 63 mm[Hg] Unive rsity of [facility] Heart rate 2021-09-01 18:36:00 69 /min [facility] Body temperature 2021-09-01 18:36:00 36.11 Halie [facility] Respiratory rate 2021-09-01 18:36:00 16 /min [facility] Oxygen saturation in 2021-09-01 18:36:00 99 /min University of Arterial blood by [facility] Pulse oximetry Branch Body height 2021-09-01 16:43:00 160 cm [facility] Body weight 2021-09-01 16:43:00 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 BP Systolic 2021-04-08 00:00:00 119 mm[Hg] [facility] Body Weight 2021-04-08 00:00:00 274 [lb_av] [facility] BP Diastolic 2021-03-04 00:00:00 68 mm[Hg] [facility] Height 2021-03-04 00:00:00 62 [in_i] [facility] BMI (Body Mass 2021-03-04 00:00:00 50.8 kg/m2 [facility] Medical Index) Group BP Systolic 2021-03-04 00:00:00 122 mm[Hg] [facility] Body Weight 2021-03-04 00:00:00 278 [lb_av] [facility] BP Diastolic 2021-01-30 00:00:00 72 mm[Hg] [facility] Height 2021-01-30 00:00:00 62 [in_i] [facility] BMI (Body Mass 2021-01-30 00:00:00 53.8 kg/m2 [facility] Medical Index) Group BP Systolic 2021-01-30 00:00:00 106 mm[Hg] [facility] Body Weight 2021-01-30 00:00:00 293.9 [facility]lb_av] [facility] Systolic blood 2020-11-04 21:30:00 121 mm[facility]Hg[facility] blood 2020-11-04 21:30:00 70 mm[Hg] [facility] Heart rate 2020-11-04 21:30:00 80 /min [facility] Body temperature 2020-11-04 21:30:00 36.61 Halie [facility] Respiratory rate 2020-11-04 21:30:00 18 /min [facility] Body height 2020-11-04 21:30:00 157.5 cm [facility] Body weight 2020-11-04 21:30:00 138.801 kg [facility] BMI 2020-11-04 21:30:00 55.97 kg/m2 [facility] Procedures Procedure Date / Time Performing Clinician Source Performed LIPASE 2021-11-26 13:27:00 Demetra Martínez [facility] COMP. METABOLIC PANEL 2021-11-26 13:27:00 [id number] Medical Branch CBC WITH DIFF 2021-11-26 13:27:00 Demetra Martínez [facility] URINALYSIS 2021-11-26 13:27:00 Demetra Martínez [facility] POCT TEST 2021-11-26 13:26:00 Demetra Martínez [facility] CONSENT/REFUSAL FOR 2021-11-26 13:06:14 [facility] DIAGNOSIS AND TREATMENT [place] [facility] [place] NOTICE OF PRIVACY 2021-11-11 20:11:32 Doctor Bernard [facility] PRACTICES [place] [facility] [place] CONSENT/REFUSAL FOR 2021-11-11 20:11:03 [facility] DIAGNOSIS AND TREATMENT [place] [facility] RAPID STREP SCREEN FOR 2021-09-01 17:25:00 [facility]s [facility] GROUP A Medical Branch COVID-19 (ID NOW RAPID 2021-09-01 17:25:00 Jesús Hartley [facility] TESTING) Medical Branch CONSENT/REFUSAL FOR 2021-09-01 16:42:18 [facility] DIAGNOSIS AND TREATMENT [place] [facility] [id number] 2021-01-06 00:00:00 AKAED TASHA Clear [facility] [id number] 2021-01-06 00:00:00 AKAED TASHA Clear [facility] GALV ONLY - VAGINAL 2020-11-04 21:58:00 Trent Rivera [facility] PATHOGENS BY NUCLEIC ACID Medica l Branch TESTING TDAP VACCINE, >11 YRS, IM 2020-11-04 21:41:54 Trent [facility] PO[facility] URINALYSIS W/O 2020-11-04 00:00:00 Trent Rivera [facility] SPECIFIC GRAVITY Medical Branch [id number] 2019-09-20 00:00:00 AKAED TASHA Clear [facility] Laparoscopic 2018-08-13 00:00:00 Riya haney [facility] Laparoscopic Appendectomy 2010-01-28 00:00:00 [facility] Encounters Start End Encounter Admission Attending Care Care Encounter Source Date/Time Date/Time Type Type Clinicians Facility Department ID 2020-12-16 Outpatient P [facility] [id number] Univers 19:49:02 [facility] 2020-12-16 Outpatient P [facility] [id number] Univers 19:47:34 [facility] 2019-09-20 Inpatient [place], [facility] OUTD [id number] [facility] 07:30:00 Edesiri [facility] 2019-08-22 Inpatient Dimitry [facility]L KIMANI [id number] [facility] 22:09:00 Arnie [id number] [facility] 2019-08-11 Inpatient Shorty, HCACL KIMANI [id number] [facility] 19:40:00 Sagrario [id number] [facility] 2019-07-04 Inpatient Shorty, [facility]ACL KIMANI [id number] [facility] 14:47:00 Sagrario [id number] [facility] 2019-06-26 Inpatient EL [place] [facility] [id number] [facility] 12:29:00 Edesiri [id number] [facility] 2019-05-30 Inpatient Dimitry [facility] KIMANI [id number] [facility] 19:00:00 Arnie [id number] [facility] 2022-08-20 2022-08-20 Outpatient KARO Feldman, [facility]L XAVIER [id number] [facility] 12:00:00 12:00:00 Edesiri 27 [facility] 2022-08-12 2022-08-12 Outpatient KARO Feldman [facility] OUTD [id number] [facility] 10:35:00 10:35:00 Edesiri 42 [facility] 2021-11-26 2021-11-26 Emergency X GRISELDA, [facility] ERT [id number] Univers 08:19:00 09:47:00 DEMETRA power [facility] 2021-11-26 2021-11-26 [facility] [id number] Univers 08:19:00 09:47:00 Demetra MONTOYA [id number] i Lisa [id number] [facility] [id number] [place] [address] Branch 2021-11-11 2021-11-11 Emergency X MARTÍNEZ, [facility] ERT [id number] Univers 15:23:00 15:58:00 DEMETRA power [facility] 2021-11-11 2021-11-11 Emergency [facility] [id number] Univers 15:23:00 15:58:00 Demetra THOMASONJASEN [id number] i ty [facility] [id number] [facility] [id number] [place] [address] Branch 2021-09-01 2021-09-01 Emergency X [facility] ERT [id number] Univers 11:45:00 13:39:00 JESÚS rowlandtamara [facility] 2021-09-01 2021-09-01 Emergency [facility] [id number] Univers 11:45:00 13:39:00 Jesús MONTOYA [id number] i ty of [place] [id number] [facility] [id number] [place] [address] Branch 2021-08-27 2021-08-27 Outpatient DICLEMENTE_ [facility] [id number] [place] 01:34:00 01:34:00 RYAN [id number] [facility] Program 2021-07-11 2021-07-11 Outpatient IHDE_G MMG MMG [id number] [place] 01:09:00 01:09:00 0714 [facility] 2021-07-11 2021-07-11 Outpatient IHDE_G MMG MMG [id number] [place] 01:09:00 01:09:00 0720 [facility] 2021-04-08 2021-04-08 Outpatient IHDE_G MMG MMG [id number] [place] 12:13:00 12:13:00 0222 [facility] 2021-04-08 2021-04-08 Outpatient IHDE_G MMG MMG [id number] [place] 12:13:00 12:13:00 0322 [facility] 2021-04-08 2021-04-08 Cristofer MMG [place] - [id number] M at[place]or 00:00:00 00:00:00 Ryan Lopez MD: Medical Medica [address], [place] [address] , Ph. [phone] 2021-03-04 2021-03-04 Outpatient IHDE_G MMG MMG [id number] [place] 11:16:00 11:16:00 0118 [facility] 2021-03-04 2021-03-04 Outpatient IHDE_G MMG MMG [id number] [place] 11:16:00 11:16:00 0119 [facility] 2021-03-04 2021-03-04 Cristofer MMG [place] - [id number] M atagor 00:00:00 00:00:00 Ryan Lopez MD: Medical Medica [address], [place] [address] , Ph. [phone] 2021-01-31 2021-01-31 Outpatient EL IHDE, [facility]ER [facility] [id number] [place] 08:54:00 08:54:00 -[id number] [facility] 2021-01-30 2021-01-30 Outpatient IHDE_G MMG MMG [id number] [place] 12:07:00 12:07:00 1216 [facility] 2021-01-30 2021-01-30 Outpatient IHDE_G MMG MMG [id number] [place] 12:07:00 12:07:00 1218 [facility] 2021-01-30 2021-01-30 Cristofer MMG [place] - [id number] M atagor 00:00:00 00:00:00 Ryan Lopez MD: Medical Medica [address], [place] [address] , Ph. [phone] 2021-01-06 2021-01-08 Inpatient EM [place], [facility] OB [id number] [facility] 14:32:00 17:39:00 Edesiri [id number] [facility] 2021-01-06 2021-01-06 Inpatient EM TASHA FeldmanCL OBPP [id number] [facility] 14:32:00 14:32:00 Edesiri 12 [facility] 2020-12-31 2020-12-31 Emergency EM TASHA OroCL KIMANI [id number] [facility] 15:55:00 19:54:00 Sagrario [id number] [facility] 2020-12-31 2020-12-31 Emergency EM Shorty HCACL KIMANI [id number] [facility] 15:55:00 15:55:00 Sagrario 17 [facility] 2020-12-25 2020-12-25 Outpatient R TRENT RIVERA [facility] [id number] Univers 11:00:00 11:00:00 [facility] 2020-12-24 2020-12-24 Outpatient R TRENT RIVERA [facility] [id number] Univers 13:00:00 13:00:00 [facility] 2020-12-19 2020-12-20 Emergency EM TASHA CutlerCL KIMANI [id number] [facility] 20:26:00 01:24:00 Analiza [id number] [facility] 2020-12-19 2020-12-20 Emergency EM TASHA CutlerCL KIMANI [id number] [facility] [facility] 20:26:00 01:24:00 Analiza 54 [facility] 2020-11-25 2020-11-25 Outpatient R NIEVES [facility] [id number] Univers 11:30:00 11:30:00 [facility] 2020-11-25 2020-11-25 Telephone Trent Rivera [facility] 1.2.840.114 [id number] Univers 00:00:00 00:00:00 Koffi Montoya 350.1.13.10 [place] [phone] Mi dical [address] 2020-11-24 2020-11-24 Emergency ER Desire, [facility] [id number] [place] 14:31:00 16:05:00 Brian -[id number] da [facility] 2020-11-12 2020-11-12 Laboratory Only, Ang Db Test [facility] 1.2.8 40.114 [id number] Univers 11:47:33 12:07:33 Only Juan JosejanineYimi bartlett [facility] 350.1.13.10 ity of [place] 4.2.7.2.686 Toy as Brent?Blea [phone] Mi dical [address] Medical Office Building 2020-11-12 2020-11-12 Outpatient R BAYRON [facility] [id number] Univers 12:00:00 12:00:00 YIMI ity [facility] 2020-11-11 2020-11-11 Outpatient R [facility] [id number] Univers 08:15:00 08:15:00 ity [facility] 2020-11-08 2020-11-08 Outpatient P [facility] [id number] Univers 10:30:00 10:30:00 ity of [facility] 2020-11-06 2020-11-06 Case Nieves [facility] 1.2.928.205 [id number] Univers 00:00:00 00:00:00 Management Malorie Montoya 350.1.13.10 ity of [place] [phone] Mi dical nal [address] [facility] 2020-11-04 2020-11-04 Routine Trent Rivera [facility] 1.2.900.230 [id number] Univers 16:07:36 17:03:36 Koffi Montoya 350.1.13.10 ity of Visit [place] [phone] Mi dical nal [address] [facility] 2020-11-04 2020-11-04 Outpatient R TRENT RIVERA [facility] [id number] Univers 15:45:00 15:45:00 ity of [facility] 2020-10-29 2020-10-29 Outpatient R MIGUEL TRENT [facility] [id number] Univers 15:30:00 15:30:00 ity of [facility] 2020-10-24 2020-10-24 Telephone Norman, [facility] 1.2.422.099 [id number] Univers 00:00:00 00:00:00 Lolynubia Montoya 350.1.13.10 ity of [place] [phone] Mi dical nal [address] [place] [address] 2020-10-18 2020-10-18 Outpatient R [facility] [id number] Univers 09:00:00 09:00:00 ity of [facility] 2020-10-16 2020-10-16 [facility] 1.2.840.114 [id number] Univers 17:12:00 20:50:00 Encounter Loly Montoya 350.1.13.10 ity of [place].2.[place] [phone] [address] 2020-10-16 2020-10-16 Telephone Walt Riveraen [facility] 1.2.840.114 [id number] Univers 00:00:00 00:00:00 Koffi Montoya 350.1.13.10 i ty of [place] [phone] Mi dical nal [address] [place] [address] 2020-10-11 2020-10-11 Technical Assistance Consultant Ultrasound, [facility] 1.2 .840.114 [id number] Univers 08:50:16 09:20:16 Visit Jennifer Quinn 350.1.13.10 ity of [place] 4.2.7.2.686 [place] Professio [phone] Mi dical [address] 2020-10-11 2020-10-11 Outpatient P KAI [facility] [id number] Univers 09:00:00 09:00:00 JENNIFER power [facility] 2020-10-11 2020-10-11 Nurse Nurse, [facility] 1.2.840.114 [id number] Univers 08:36:56 08:49:38 Visit Jennifer Quinn 350.1.13.10 ity of [place] [phone] Mi dical nal [address] [place] [address] 2020-10-04 2020-10-04 Nurse Nurse, [facility] 1.2.840.114 [id number] [facility] 09:31:56 09:48:05 Visit Trent Rivera 350.1.13.10 ity of [place] 4.[place] [phone] Mi dical nal [address] [place] [address] 2020-10-04 2020-10-04 Outpatient R [facility] [id number] Univers 09:00:00 09:00:00 ity of [facility] 2020-10-01 2020-10-01 Routine Nieves [facility] 1.2.513.857 [id number] [facility] 11:43:58 12:16:45 Malorie Montoya 350.1.13.10 ity of Visit [place].7.2.[place] [phone] Mi dicnm nal [address] [place] [address] 2020-10-01 2020-10-01 Outpatient R NIEVES [facility] [id number] Univers 11:15:00 11:15:00 MALORIE ittamara [facility] 2020-09-27 2020-09-27 Technical Assistance Consultant Ultrasound, [facility] 1.2 .840.114 [id number] Univers 09:28:21 10:19:26 Visit Jennifer Quinn 350.1.13.10 ity of [place] [phone] Mi dical nal [address] [place] [address] 2020-09-27 2020-09-27 Nurse Nurse, [facility] 1.2.840.114 [id number] Univers 09:33:49 09:48:49 Visit Jennifer Quinn 350.1.13.10 ity of [place].2.[place] [phone] Mi dical nal [address] [place] [address] 2020-09-27 2020-09-27 Outpatient P KAI, [facility] [id number] Univers 09:30:00 09:30:00 JENNIFER ity of [facility] 2020-09-24 2020-09-24 Case Trent Rivera [facility] 1.2.554.222 [id number] Univers 00:00:00 00:00:00 Management Cam [place] 350.1.13.10 ity of [place] [phone] [address] 2020-09-19 2020-09-19 Outpatient R [facility] [id number] Univers 11:45:00 11:45:00 ity of [facility] 2020-09-19 2020-09-19 Nurse JOANNE Hdez 1.2.840.114 [id number] Univers 00:00:00 00:00:00 Triage Manda ACEVEDO 350.1.13.10 it y of [facility] 4.2.7.2.686 Toy as [phone] [address] 2020-09-19 2020-09-19 Telephone Trent Rivera [facility] 1.2.840.114 [id number] Univers 00:00:00 00:00:00 Cam [place] 350.1.13.10 i ty of [place] 4.[place] [phone] [address] 2020-09-18 2020-09-18 Case Trent Rivera [facility] 1.2.641.484 [id number] Univers 00:00:00 00:00:00 Management Cam [place] 350.1.13.10 ity of [place] [phone] [address] 2020-09-17 2020-09-17 Technical Assistance Consultant [facility], [facility] 1.2 .840.114 [id number] Univers 09:12:15 10:12:15 Visit Germán Everett [place] 350.1.13.10 ity of [facility] 4.2.7.2.686 Toy as MATERNAL [phone] Med ical & CHILD [address] [place] [address] 2020-09-17 2020-09-17 Outpatient P [facility] [id number] Univers 09:15:00 09:15:00 ity of [facility] 2020-09-17 2020-09-17 Orders Doctor RUBIO 1.2.840.114 [id number] Univers 00:00:00 00:00:00 Only Unassigned, CURTIS 350.1.13.10 [facility] 4.2.7.2.686 Toy as [phone] [address] 2020-09-16 2020-09-16 Case Trent Rivera [facility] 1.2.944.407 [id number] Univers 00:00:00 00:00:00 Management Koffi Montoya 350.1.13.10 ity of [place] [phone] Mi dical nal [address] [place] [address] 2020-09-12 2020-09-12 Outpatient P [facility] [id number] Univers 08:30:00 08:30:00 ity of [facility] 2020-09-10 2020-09-10 Case Trent Rivera [facility] 1.2.349.392 [id number] Univers 00:00:00 00:00:00 Management Koffi Montoya 350.1.13.10 ity of [place] [phone] Mi dical nal [address] [place] [address] 2020-09-06 2020-09-06 Technical Assistance Consultant Ultrasound, [facility] 1.2 .840.114 [id number] Univers 14:20:35 14:50:35 Visit Jennifer Quinn 350.1.13.10 ity of [place].2.[place] [phone] Mi dical nal [address] [place] [address] 2020-09-06 2020-09-06 Outpatient R KAI [facility] [id number] Univers 14:30:00 14:30:00 JENNIFER ittamara [facility] 2020-09-04 2020-09-04 Orders Doctor RUBIO 1.2.840.114 [id number] Univers 00:00:00 00:00:00 Only Unassigned, CURTIS 350.1.13.10 ity of [place] [facility] 4.2.7.2.686 Toy as [phone] [address] 2020-09-02 2020-09-02 Technical Assistance Consultant 2, Adc Lab [facility] 1.2.840.114 [id number] Univers 14:39:33 14:54:33 Visit Malorie Pickett 350.1.13.10 ity of [place].2.[place] [phone] Mi dical nal 353 [facility] 2020-09-02 2020-09-02 Routine Trent Rivera [facility] 1.2.468.043 [id number] Univers 13:45:40 14:35:10 Koffi Montoya 350.1.13.10 ity of [place].2.[place] [phone] Mi dical nal 134 [facility] 2020-09-02 2020-09-02 Outpatient R TRENT RIVERA [facility] [id number] Univers 13:00:00 13:00:00 ittamara [facility] 2020-08-06 2020-08-06 Outpatient R NIEVES [facility] [id number] Univers 10:15:00 10:15:00 MALORIE power [facility] 2020-08-05 2020-08-05 Outpatient R NIEVES [facility] [id number] Univers 10:30:00 10:30:00 MALORIE power [facility] 2020-08-05 2020-08-05 Routine Nieves [facility] 1.2.308.244 [id number] Univers 10:07:07 10:22:07 Malorie Montoya 350.1.13.10 ity of [place].2.[place] [phone] Mi dical nal 134 [facility] 2020-07-29 2020-07-29 Case Nieves [facility] 1.2.518.898 [id number] Univers 00:00:00 00:00:00 Management Malorie Montoya 350.1.13.10 ity of [place].7.2.[place] [phone] Mi dical [address] 2020-07-23 2020-07-23 Outpatient R [facility] [id number] Univers 10:30:00 10:30:00 ity of [facility] 2020-07-23 2020-07-23 Orders Doctor JOANNE 1.2.840.114 [id number] Univers 00:00:00 00:00:00 Only Unassigned, CURTIS 350.1.13.10 ity of [place] [facility] 4.2.7.2.686 Toy as [phone] [address] 2020-07-09 2020-07-09 Routine Rivera Trent [facility] 1.2.860.198 [id number] Univers 15:23:01 16:15:04 Koffi Montoya 350.1.13.10 ity of [place].2.[place] [phone] [address] 2020-07-09 2020-07-09 Outpatient R WALT RIVERAEN [facility] [id number] Univers 15:45:00 15:45:00 ity of [facility] 2020-07-08 2020-07-08 Outpatient R TRENT RIVERA [facility] [id number] Univers 13:45:00 13:45:00 ity of [facility] 2020-06-29 2020-06-29 Emergency ER ALLISON [facility] [id number] [place] 04:20:00 07:52:00 ZAYDA -[id number] [facility] 2020-06-26 2020-06-26 Case Trent Rivera [facility] 1.2.121.852 [id number] 00:00:00 00:00:00 Management Koffi Montoya 350.1.13.10 [place] 4.2.7.2.686 Professio [phone] [address] 2020-06-26 2020-06-26 Case Rivera Trent [facility] 1.2.091.941 [id number] Univers 00:00:00 00:00:00 Management Cam [place] 350.1.13.10 ity of [place].2.[place] [phone] Mi dical [facility] 134 [facility] 2020-06-24 2020-06-24 Technical Assistance Consultant 2, Adc Lab [facility] 1.2.840.114 [id number] 10:18:15 10:33:15 Visit [place] 350.1.13.10 [place] 4.2.7.2.686 Professio [phone] [address] 2020-06-24 2020-06-24 Technical Assistance Consultant 2, Adc Lab [facility] 1.2.840.114 [id number] Univers 10:18:15 10:33:15 Visit Trent Riveraton 350.1.13.10 ity of [place].2.[place] [phone] Mi dic[address] 2020-06-24 2020-06-24 Outpatient R [facility] [id number] Univers 10:15:00 10:15:00 ity of [facility] 2020-06-24 2020-06-24 Telephone Trent Rivera [facility] 1.2.840.114 [id number] 00:00:00 00:00:00 Cam [place] 350.1.13.10 [place] 4.2.7.2.686 Professio [phone] [address] 2020-06-24 2020-06-24 Telephone Trent Rivera [facility] 1.2.840.114 [id number] Univers 00:00:00 00:00:00 Cam [place] 350.1.13.10 i ty of [place].7.2.[place] [phone] Mi dical edgar [address] [place] [address] 2020-06-10 2020-06-10 Initial Trent Rivera [facility] 1.2.834.720 [id number] 09:04:44 10:09:50 Koffi [place] 350.1.13.10 Visit [place] 4.2.7.2.686 Professio [phone] [address] 2020-06-10 2020-06-10 Initial Trent Rivera [facility] 1.2.968.172 [id number] [id number] Univers 09:04:44 10:09:50 Cam [place] 350.1.13.10 ity of [place] 4.2.7.2.[place] [phone] Mi dical nal 134 [facility] 2020-06-10 2020-06-10 Outpatient R TRENT RIVERA [facility] [id number] Univers 09:00:00 09:00:00 ity of [facility] 2020-06-10 2020-06-10 Orders Doctor JOANNE 1.2.840.114 [id number] 00:00:00 00:00:00 Only Unassigned, [place] 350.1.13.10 [place] [facility] 4.2.7.2.686 [id number] 009 2020-06-10 2020-06-10 Orders Doctor JOANNE 1.2.840.114 [id number] Univers 00:00:00 00:00:00 Only Unassigned, CURTIS 350.1.13.10 ity of [place] [facility] 4.2.7.2.686 Toy as [phone] [facility] [address] 2020-05-07 2020-05-07 Patient Dmitry [facility] 1.2.840.114 [id number] 00:00:00 00:00:00 Outreach Shan PRIMARY 350.1.13.10 Jason CARE 4.2.7.2.686 PAVILLION [phone] 388 2020-05-07 2020-05-07 Patient Dmitry FLDONTRELL 1.2.840.114 [id number] Univers 00:00:00 00:00:00 Outreach Shan PRIMARY 350.1.13.10 i ty of Jason CARE [place].2.7.2.[place] [phone] Mi dical [address] [place] 2020-03-12 2020-03-12 Outpatient R YADY [facility] [id number] Univers 17:00:00 17:00:00 ROSA gómez f [facility] 2020-03-12 2020-03-12 Urgent Provider, [facility] 1.2.301.149 [id number] 16:18:04 16:38:04 Care [facility] 350.1.13.10 Care [place] 4.2.7.2.686 Professio [phone] [place] [address] [address] 2020-03-12 2020-03-12 Urgent Provider, [facility] 1.2.840.114 [id number] [facility] 16:18:04 16:38:04 Care Rosa [facility] 350.1.13.10 ity of [place] 4.2.7.2.686 Toy as Professio [phone] [address] Office Building [facility] 2020-02-02 2020-02-02 Laboratory Lab, [facility] 1.2.840.114 [id number] 19:33:37 19:53:37 Only Fam Pob I Health 350.1.13.10 [place] 4.2.7.2.686 Professio [phone] [place] [address] [address] 2020-02-02 2020-02-02 Laboratory Lab, [facility] Fam Pob I [facility] 1.2. 840.114 [id number] [facility] 19:33:37 19:53:37 Only Rosa [facility] 350.1.13.10 ity of [place] 4.2.7.2.686 Toy as Professio [phone] [address] Office Building [facility] 2020-02-02 2020-02-02 [facility] [id number] Univers 19:20:00 19:20:00 ROSA power o f [facility] 2020-02-02 2020-02-02 [facility] [id number] Univers 19:20:00 19:20:00 ROSA tono o f [facility] 2019-04-25 2019-04-25 Outpatient R [facility] [id number] Univers 13:30:00 13:30:00 ity [facility] 2019-04-24 2019-04-24 Patient Doctor [facility] 1.2.964.050 [id number] 00:00:00 00:00:00 Secure Msg Unassigned, Y HEALTH 350.1.13.10 [place] [facility] 4.2.7.2.686 [phone] [facility] 2019-04-24 2019-04-24 Patient Doctor SIERRA 1.2.990.239 [id number] Univers 00:00:00 00:00:00 Secure Msg Unassigned, Y HEALTH 350.1.13.10 ity of [place] [facility] 4.2.7.2.[place] [phone] [facility] [address] 2018-11-10 2018-11-10 Outpatient Kenna COLVIN [facility] [id number] Univers 14:00:00 16:44:51 LI ity [facility] 2018-10-28 2018-10-28 Office [facility] 1.2.961.626 [id number] 12:45:46 13:40:05 Visit Kelsie Tripathi [place] 350.1.13.10 [facility] 4.2.7.2.686 MATERNAL [phone] & CHILD [address] [place] [address] 2018-10-28 2018-10-28 [facility] 1.2.095.621 [id number] Univers 12:45:46 13:40:05 Visit Kelsie Tripathi [place] 350.1.13.10 it y of [facility] 4.2.7.2.686 Toy as MATERNAL [phone] Med ical & CHILD [address] [place] [address] 2018-10-28 2018-10-28 Orders Doctor JOANNE 1.2.840.114 [id number] Univers 00:00:00 00:00:00 Only Unassigned, CURTIS 350.1.13.10 ity of [place] [facility] 4.2.7.2.686 Toy as [phone] [facility] [address] 2018-08-12 2018-08-13 Inpatient ER Kirk [facility] [id number] [place] 10:38:00 14:40:00 -[id number] [facility] 2016-08-15 2016-08-15 Emergency ER RANDALL [facility] [id number] [place] 07:26:00 09:48:00 JOSUE -[id number] [facility] 2016-05-21 2016-05-21 Outpatient KARO Phipps [facility] [id number] [place] 08:13:00 08:13:00 Brian -[id number] [facility] 2016-05-17 2016-05-18 Emergency ER ANDREW, [facility] [id number] [place] 22:40:00 02:16:00 ESTRELLITA -[id number] [facility] 2016-05-01 2016-05-01 Outpatient EL Desire, [facility] [id number] [place] 11:11:00 11:11:00 Brian -[id number] [facility] 2016-04-16 2016-04-16 Emergency ER ISABEL, [facility] [id number] [place] 22:14:00 23:57:00 KEE -[id number] [facility] 2016-02-28 2016-02-28 Emergency ER ANDREW, [facility] [id number] [place] 12:45:00 15:20:00 ESTRELLITA -[id number] [facility] 2016-01-21 2016-01-21 Emergency ER SAEMI, [facility] [id number] [place] 02:45:00 05:51:00 CARLOTA -[id number] [facility] 2015-09-19 2015-09-19 Emergency ER GARZON, [facility] [id number] [place] 12:51:00 16:35:00 WAS -[id number] [facility] 2014-07-13 2014-07-13 Emergency ER UGORJI, [facility] [id number] [place] 10:43:00 13:25:00 LEEROY -[id number] [facility] 2013-07-04 2013-07-04 Emergency ER UGORJI, [facility] [id number] [place] 14:52:00 18:02:00 LEEROY -[id number] [facility] 2012-07-27 2012-07-30 Inpatient ER BEATRIS, [facility] MOB [id number] [place] 23:35:00 16:09:00 ZAYDA [id number] [facility] 2012-07-05 2012-07-06 Inpatient ER BEATRIS, [facility] MOB [id number] [place] 20:45:00 07:20:00 ZAYDA [id number] [facility] 2012-05-13 2012-05-13 Inpatient ER BEATRIS, [facility] MOB [id number] [place] 02:00:00 08:30:00 ZAYDA -[id number] [facility] 2012-03-21 2012-03-21 Emergency ER UGORJI, [facility] [id number] [place] 17:26:00 21:06:00 CLEMENT -[id number] [facility] 2011-03-19 2011-03-19 Emergency ER ALEXUS, [facility] [id number] [place] 16:00:00 19:33:00 NELL -[id number] [facility] 2009-11-05 2009-11-07 Inpatient ER Kirk, [facility] MED [id number] [place] 16:00:00 13:47:00 -[id number] [facility] Results Test Description Test Time Test Comments Results Result [facility] e Comments - US PELVIS 2022-08-13 COMPLETE 13:12:00 [facility] 1990 Sex: F * Name: LIOR HUNT [facility] [place] : 1990 Age/S: 31 / F [address] [place] [address] Unit #: [id number] Loc: SWATHI [place] [address] Phys: Eric Feldman MD Acct: [id number] Dis Date: Status: DEP CLI PHONE #: [phone] Exam Date: 08/12/2022 1208 FAX #: [phone] Reason: PELVIC PAIN EXAMS: CPT CODE: [id number] US PELVIS COMPLETE [id number] EXAM: - US TRANSVAGINAL NON OB, - US PELVIS COMPLETE LOCATION: U19 HISTORY: PELVIC PAIN COMPARISON: No recent priors available TECHNIQUE: Transabdominal and transvaginal scans performed. Grayscale, color doppler, and spectral duplex images of the adnexa were performed. FINDINGS: The uterus measures 9.0 x 5.8 x 4.6 cm. Anteverted, Anteflexed. Few incidental nabothian cysts noted. Endometrial stripe measures 0.8 cm. No myometrial masses are seen. The right ovary measures 3.5 x 2.6 x 2.4 cm. Color and spectral doppler of the ovary demonstrates normal perfusion and vascular waveforms. No solid lesions identified. The left ovary measures 2.3 x 1.8 x 1.6 cm. Color and spectral doppler of the ovary demonstrates normal perfusion and vascular waveforms. No solid lesions identified. No free fluid. IMPRESSION: Unremarkable sonographic appearance of the pelvis. at 1312 Reported and signed by: Kieran Tong D.O. CC: Eric Feldman MD Technologist: Yodit Summers RT(R)(CT) Trnscb Date/Time: 08/13/2022 (1312) [email or web address] Orig Print D/T: S: 08/13/2022 (7735) Probe: PAGE 1 Signed Report - US TRANSVAGINAL 2022-08-13 NON OB 13:12:00 [facility] ISABELL WHITMOREName: LIOR HUNT : 1990 Sex: F * Name: LIOR HUNT [facility] Isabell Whitmore : 1990 Age/S: 31 / F [address] [place], [place] [address] Unit #: [id number] Loc: SWATHI Wheeler [address] Phys: Eric Feldman MD Acct: [id number] Dis Date: Status: DEP CLI PHONE #: [phone] Exam Date: 08/12/2022 1208 FAX #: [phone] Reason: PELVIC PAIN EXAMS: CPT CODE: [id number] [place] [id number] EXAM: - US TRANSVAGINAL NON OB, - US PELVIS COMPLETE LOCATION: U19 HISTORY: PELVIC PAIN COMPARISON: No recent priors available TECHNIQUE: Transabdominal and transvaginal scans performed. Grayscale, color doppler, and spectral duplex images of the adnexa were performed. FINDINGS: The uterus measures 9.0 x 5.8 x 4.6 cm. Anteverted, Anteflexed. Few incidental nabothian cysts noted. Endometrial stripe measures 0.8 cm. No myometrial masses are seen. The right ovary measures 3.5 x 2.6 x 2.4 cm. Color and spectral doppler of the ovary demonstrates normal perfusion and vascular waveforms. No solid lesions identified. The left ovary measures 2.3 x 1.8 x 1.6 cm. Color and spectral doppler of the ovary demonstrates normal perfusion and vascular waveforms. No solid lesions identified. No free fluid. IMPRESSION: Unremarkable sonographic appearance of the pelvis. at 1312 Reported and signed by: Kieran Tong D.O. CC: Eric Feldman MD Technologist: RT Akila(R)(CT) Trnscb Date/Time: 08/13/2022 (1312) [id number] Orig Print D/T: S: 08/13/2022 (1315) Probe: [id number] PAGE 1 Signed Report COMP. METABOLIC PANEL ([id number]) 2021-11-26 13:49:38 Test Item Value Reference Range Interpretation Comme nts NA (test code = 7324992124) 143 mmol/L 135-145 K (test code = 3640129887) 4.5 mmol/L 3.5-5 CL (test code = 0455767781) 106 mmol/L 98-108 CO2 TOTAL (test code = 26 mmol/L 23-31 4270231475) AGAP (test code = 2683253232) 2-16 BUN (test code = 1413354129) 14 mg/dL 7-23 GLUCOSE (test code = 5350535774) 96 mg/dL 70-110 CREATININE (test code = 0.73 mg/dL 0.5-1.04 6819330348) TOTAL BILI (test code = 0.4 mg/dL 0.1-1.1 5269695975) CALCIUM (test code = 4088834895) 9.1 mg/dL 8.6-10.6 T PROTEIN (test code = 7.3 g/dL 6.3-8.2 8494589096) ALBUMIN (test code = 5860290115) 4.4 g/dL 3.5-5 ALK PHOS (test code = 6262347504) 75 U/L 34-122 ALTv (test code = 1742-6) 19 U/L 5-35 AST(SGOT) (test code = 20 U/L 13-40 7827895480) eGFR (test code = 8375870290) mL/min/1.73m2 HONEY (test code = HONEY) Association of Glomerular Filtration Rate (GFR) and Staging of Kidney Disease* + +--------- + ----+| GFR (mL/min/1.73 m2) ?| With Kidney Damage ?| ?Without Kidney Damage+ +--- + +| ?>90 ?| ?Stage one ?| ? Normal ?+ +-------- + -----+| ?60-89 ?| ?Stage two ?| ? Decreased GFR ? + +--------- + ----+| ?30-59 ?| ?Stage three ?| ? Stage three ? + +--------- + ----+| ?15-29 ?| ?Stage four ? | ? Stage four ?+ +-------- + -----+| ?<15 (or dialysis) ? ?| ?Stage five ? | ? Stage five ?+ +-------- + -----+ *Each stage assumes the associated GFR level has been in effect for at least three months. ?Stages 1 to 5, with or without kidney disease, indicate chronic kidney disease. Notes: Determination of stages one and two (with eGFR >59mL/min/1.73 m2) requires estimation of kidney damage for at least three months as defined by structural or functional abnormalities of the kidney, manifested by either:Pathological abnormalities or Markers of kidney damage (including abnormalities in the composition of the blood or urine or abnormalities in imaging tests). [facility] 13:48:57 Test Item Value Reference Range Interpretation Comments LIPASE (test code = 6828648818) 45 U/L 0-220 Lab Interpretation (test code = Normal 37025-1) [facility] WITH [id number] 13:36:59 Test Item Value Reference Range Interpretation Comments WBC (test code = See_Comment [Automated message] 2490-2) The system [employer] generated this result transmitted ref erence range: 4.30 - 1 1.10 10*3/?L. The re ference range was not u sed to interpret this result as normal/abnor mal. RBC (test code = See_Comment [Automated message] 569-8) The system [employer] generated this result transmitted ref erence range: 3.93 - 5 .25 10*6/?L. The re ference range was not u sed to interpret this result as normal/abnor mal. HGB (test code = 13.6 g/dL 11.6-15 718-7) HCT (test code = 41.3 % 35.7-45.2 4544-3) MCV (test code = 81.9 fL 80.6-95.5 787-2) MCH (test code = 27.0 pg 25.9-32.8 785-6) MCHC (test code = 32.9 g/dL 31.6-35.1 786-4) RDW-SD (test code 44.2 fL 39-49.9 = 84745-3) RDW-CV (test code 14.8 % 12-15.5 = 788-0) PLT (test code = See_Comment [Automated message] 957-3) The system [employer] generated this result transmitted ref erence range: 166 - 35 8 10*3/?L. The re ference range was not u sed to interpret this result as normal/abnor mal. MPV (test code = 10.1 fL 9.5-12.9 36125-9) NRBC/100 WBC (test See_Comment [Automat ed message] code = 8478657034) The syste m which generated this result transmitted ref erence range: 0.0 - 10 .0 /100 WBCs. The refer ence range was not u sed to interpret this result as normal/abnor mal. NRBC x10^3 (test See_Comment [Automated message] code = 7545663522) The syste m which generated this result transmitted ref erence range: 10*3/?L. The reference range was not used to interpr et this result as normal/abnormal . GRAN MAT (NEUT) % 57.9 % (test code = 770-8) IMM GRAN % (test 0.30 % code = 7423139781) LYMPH % (test code 30.5 % = 736-9) MONO % (test code 6.8 % = 5905-5) EOS % (test code = 3.8 % 713-8) BASO % (test code 0.7 % = 706-2) GRAN MAT 4.38 10*3/uL 1.88-7.09 x10^3(ANC) (test code = 7297319208) IMM GRAN x10^3 0-0.06 (test code = 9061145281) LYMPH x10^3 (test 2.30 10*3/uL 1.32-3.29 code = 731-0) MONO x10^3 (test 0.51 10*3/uL 0.33-0.92 code = 742-7) EOS x10^3 (test 0.29 10*3/uL 0.03-0.39 code = 711-2) BASO x10^3 (test 0.05 10*3/uL 0.01-0.07 code = 704-7) [facility] [id number] 13:26:00 Test Item Value Reference Range Interpretation Comments POCT PREG (test code = 1605) negative On board controls acceptable with present C Line (test code = 3574) POCT PREG LOT # (test code = 3575) [id number] POCT PREG TEST DATE (test 04/15/2023 code = 3576) Lab Interpretation (test code = Normal 22107-2) [facility] [id number] 14:11:00 Test Item Value Reference Range Interpretation Comments SURGICAL PATH SPECIMENS (test code = S) RUN DATE: 01/08/21 [place] - LAB PAGE 1 RUN TIME: 1411 Specimen Inquiry RUN USER: INTERFACE PATIENT: LIOR HUNT LOC: MADDI U #: [id number] AGE/SX: 30/F [place] [facility] RE01/06[facility]21REG DR: Eric Feldman MD : 91 BED: 1 DIS: STATUS: ADM IN TLOC: SPEC #: [id number] RECD: 01/07/21 STATUS: ELIAS REQ #: [id number] STEPHAN: 01/06/21- [facility] DR: Eric Feldman MD ENTERED: 01/07/21 SP TYPE: SURG SPEC OTHR DR: No Primary or Family Physician Roxana Bender MDORDERED: GM L2 17259/2, GM LEVEL 5 CODES: [id number] - FALLOPIAN TUBE [id number] - PLACENTA, NOS COPIES TO: No Primary or Family Physician Eric Feldman MD [address] [place] [address] [email or web address] Roxana Bender MD [address] [place] [address] PROCEDURES: GM L2 16196 (01/07/21) GM LEVEL 5 (01/07/21) TISSUES: PLACENTA, NOS 2. FALLOPIAN TUBE, NOS - BI LAT FINAL DIAGNOSIS Placenta, 36-week, submitted: Histologically mature brown placenta (570 g, greater than 90th percentile for gestational age), acute chorionitis. Right fallopian tube, salpingectomy: Complete cross-section of fallopian tube. Left fallopian tube, salpingectomy: Complete cross-section of fallopian tube, paratubal cysts. CONTINUED ON NEXT PAGE RUN DATE: 01/08/21 [facility] LAB PAGE 2 RUN TIME: 1411 Specimen Inquiry RUN USER: INTERFACE SPEC #: [id number] PATIENT: LIOR HUNT #[id number] (Continued) --- GROSS AND MICROSCOPIC GROSS EXAMINATION: Received in formalin labeled placenta is a 570 g 20 x 15 x 3 cm placenta. The surface is bluegray with winding vessels on the surface and some subchorionic hemorrhage. The maternal surface is intact with adherent hemorrhage. There is a 8 cm in length 1 cm in diameter attached portion of umbilical cord centrally, a second 13 cm in length segment of umbilical cord and a 18 cm portion of umbilical cord with increased twisting. The membranes are thin and translucent. The parenchyma is beefy red without identified lesions. Submitted (A) membranes (B) umbilical cord (C)-(E) parenchyma. Received in formalin labeled right fallopian tube is a 9 cm in length 1 cm in diameter fallopian tube with fimbriated end (F). Received in formalin labeled left fallopian tube is a 6 cm in length 1.1 cm in diameter fallopian tube with cysts attached to that measure up to 2.2 cm that are filled with clear serous fluid. Submitted (G). MICROSCOPIC EXAMINATION: Sections of the umbilical cord reveal three vessels without significant inflammation. The membranes are unremarkable. The surface shows mild acute inflammation of the chorion (maternal inflammatory response stage I grade 1). Maturation is appropriate for gestational age. The underlying maternal decidua beneath the placenta contains a mixed inflammatory infiltrate. Sections of the bilateral fallopian tubes show complete cross-sections of fallopian tube. Signed SIGNATURE ON FILE Live Cruz DO 01/08/21 1411 END OF REPORT RAPID PLASMA [id number] 10:54:00 Test Item Value Reference Range Interpretation Comments RAPID PLASMA REAGIN (test code = NONREACTIVE NONREACTIVE RPR) AG HEPATITIS B [id number] 10:54:00 Test Item Value Reference Range Interpretation Comments AG HEPATITIS B SURFACE NON REACTIVE INDEX NonReactive (test code = HBSAG) AB HIV 1 10:54:00 Test Item Value Reference Range Interpretation Comments AB HIV 1 2 (test code = DXT66DG) Nonreactive Nonreactive COMPREHENSIVE METABOLIC [id number] 08:08:00 Test Item Value Reference Range Interpretation Comments SODIUM (test code = NA) 136 mEq/L 134-147 N POTASSIUM (test code = 4.2 mEq/L 3.4-5.0 N K) CHLORIDE (test code = 104 mEq/L 100-108 N CL) CARBON DIOXIDE (test 22 mEq/l 21-33 N code = CO2) ANION GAP (test code = 14 0-20 N GAP) GLUCOSE (test code = 114 mg/dL 70-110 H GLU) BLOOD UREA NITROGEN 8 mg/dL 7-18 N (test code = BUN) GLOMERULAR FILTRATION 118.2 110-120 N Units of measure = RATE (test code = GFR) ml/mi n/1.73 m2 CREATININE (test code = 0.6 mg/dL 0.6-1.3 N CREAT) TOTAL PROTEIN (test 5.8 g/dL 6.4-8.2 L code = PROT) ALBUMIN (test code = 2.20 g/dL 3.4-5.0 L ALB) CALCIUM (test code = 8.4 mg/dL 8.0-10.5 N CA) BILIRUBIN TOTAL (test 0.20 mg/dL 0.0-1.0 N code = BILT) SGOT/AST (test code = 24 IUnit/L 15-37 AST) SGPT/ALT (test code = 9 IUnit/L 30-65 L ALT) ALKALINE PHOSPHATASE 87 IUnit/L 20-125 N TOTAL (test code = ALKP) CBC W/AUTO [id number] 06:57:00 Test Item Value Reference Range Interpretation Comments WHITE BLOOD CELL (test code = 11.3 x10 3/uL 4.5-11.0 H WBC) RED BLOOD CELL (test code = 3.57 x10 6/uL 3.54-5.02 N RBC) HEMOGLOBIN (test code = HGB) 9.3 g/dL 11.0-15.0 L HEMATOCRIT (test code = HCT) 29.0 % 33.0-45.0 L MEAN CELL VOLUME (test code = 81.2 fL 81.0-99.0 N MCV) MEAN CELL HGB (test code = MCH) 26.1 pg 27.0-33.0 L MEAN CELL HGB CONCETRATION 32.1 g/dL 33.0-37.0 L (test code = MCHC) RED CELL DISTRIBUTION WIDTH CV 14.6 % 11.5-14.5 H (test code = RDW) RED CELL DISTRIBUTION WIDTH SD 43.3 fL 37.0-54.0 N (test code = RDW-SD) PLATELET COUNT (test code = 171 x10 3/uL 150-400 N PLT) MEAN PLATELET VOLUME (test code 11.2 fL 7.0-9.0 H = MPV) NEUTROPHIL % (test code = NT%) 82.3 % 56.0-77.0 H IMMATURE GRANULOCYTE % (test 0.4 % 0.0-2.0 N code = IG%) LYMPHOCYTE % (test code = LY%) 12.6 % 14.0-32.0 L MONOCYTE % (test code = MO%) 4.2 % 4.8-9.0 L EOSINOPHIL % (test code = EO%) 0.2 % 0.3-3.7 L BASOPHIL % (test code = BA%) 0.3 % 0.0-2.0 N NUCLEATED RBC % (test code = 0.0 % 0-0 N NRBC%) NEUTROPHIL # (test code = NT#) 9.30 x10 3/uL 2.0-7.6 H IMMATURE GRANULOCYTE # (test 0.05 x10 3/uL 0.00-0.03 H code = IG#) LYMPHOCYTE # (test code = LY#) 1.42 x10 3/uL 1.0-3.8 N MONOCYTE # (test code = MO#) 0.48 x10 3/uL 0.1-0.8 N EOSINOPHIL # (test code = EO#) 0.02 x10 3/uL 0.0-0.2 N BASOPHIL # (test code = BA#) 0.03 x10 3/uL 0.0-0.2 N NUCLEATED RBC # (test code = 0.00 x10 3/uL 0.0-0.1 N NRBC#) MANUAL DIFF REQUIRED (test code NO = MDIFF) COVID 19 Asymptomatic IH [id number] 15:01:00 Test Item Value Reference Range Interpretation Comments COVID 19 Asymptomatic Negative Negative A nega tive result is IH AG (test code = presumpti ve and should COVNONPUIAG) be confirmedwit h an FDA authorized mole cular assay, if neces dina forpatient chepe gement.A positive result does not rule out co-inf ections withother patho gens.This test detects pierre th viable (live) and non-viable,SARS -CoV, and SARS-CoV-2. Garland t performance dep ends on theamount of vi anthony (antigen) in th e sample.This garland t has not been FDA cleare d or approved; the t est hasbeen authori zed by FDA under an Em ergency Use Authorizati on(EUA) for use by labo ratories certified under the CLIA thatmeet the requirements to perform moderate, high or waivedcomplexit y tests. URINALYSIS [id number] 13:51:00 Test Item Value Reference Range Interpretation Comments UA COLOR (test code = COLU) YELLOW YEL/STRAW UA APPEARANCE (test code = CLEAR CLEAR APPU) UA GLUCOSE DIPSTICK (test code NEGATIVE NEGATIVE = DGLUU) UA BILIRUBIN DIPSTICK (test NEGATIVE NEGATIVE code = BILU) UA KETONE DIPSTICK (test code NEGATIVE NEGATIVE = KETU) UA SPECIFIC GRAVITY (test code 1.012 1.005-1.030 N = SGU) UA BLOOD DIPSTICK (test code = NEGATIVE NEGATIVE TORITO) UA PH DIPSTICK (test code = 6.0 5.0-7.0 N DAMI) UA PROTEIN DIPSTICK (test code NEGATIVE NEGATIVE = PROU) UA UROBILINIOGEN DIPSTICK 0.2 mg/dL 0.2-1.0 (test code = URO) UA NITRITE DIPSTICK (test code NEGATIVE NEGATIVE = NEENA) UA LEUKOCYTE ESTERASE DIPSTICK NEGATIVE NEGATIVE (test code = LEUU) UA RBC (test code = RBCU) 0-3 RBC/HPF 0-3 UA WBC NO REFLEX (test code = 0-3 WBC/HPF 0-3 WBCUCL) UA BACTERIA (test code = BACU) NONE SEEN /HPF NONE SEEN UA SQUAMOUS CELLS (test code = 0-5 /HPF NONE SEEN SQU) UA MUCUS (test code = MUCU) TRACE /LPF NONE SEEN UR PROTEIN/CREATININE [id number] 13:51:00 Test Item Value Reference Range Interpretation Comments UR PROTEIN RANDOM 17 mg/dL No te: Change in (test code = UNITS of MEASUR EMENT. PROTU) The Refe rence Range and Metho d Performance specificationsh ave not been establishe d for this fluid. The test resultshould be correlated into the clinical contex t forinterpretati on. UR CREATININE 68.4 mg/dL The Reference Range and RANDOM (test code Method Per formance = CREATU) specificationsh ave not been establishe d for this fluid. The test resultshould be correlated into the clinical contex t forinterpretati on. PROTEIN/CREATININE 0.25 RATIO (test code = P/CRATIO) COMPREHENSIVE METABOLIC [id number] 13:28:00 Test Item Value Reference Range Interpretation Comments SODIUM (test code = NA) 138 mEq/L 134-147 N POTASSIUM (test code = 3.9 mEq/L 3.4-5.0 N K) CHLORIDE (test code = 108 mEq/L 100-108 N CL) CARBON DIOXIDE (test 21 mEq/l 21-33 N code = CO2) ANION GAP (test code = 13 0-20 N GAP) GLUCOSE (test code = 119 mg/dL 70-110 H GLU) BLOOD UREA NITROGEN 7 mg/dL 7-18 N (test code = BUN) GLOMERULAR FILTRATION 118.2 110-120 N Units of measure = RATE (test code = GFR) ml/mi n/1.73 m2 CREATININE (test code = 0.6 mg/dL 0.6-1.3 N CREAT) TOTAL PROTEIN (test 6.2 g/dL 6.4-8.2 L code = PROT) ALBUMIN (test code = 2.50 g/dL 3.4-5.0 L ALB) CALCIUM (test code = 8.3 mg/dL 8.0-10.5 N CA) BILIRUBIN TOTAL (test 0.20 mg/dL 0.0-1.0 N code = BILT) SGOT/AST (test code = 15 IUnit/L 15-37 N AST) SGPT/ALT (test code = 7 IUnit/L 30-65 L ALT) ALKALINE PHOSPHATASE 98 IUnit/L 20-125 N TOTAL (test code = ALKP) URIC [id number] 13:28:00 Test Item Value Reference Range Interpretation Comments URIC ACID (test code = URIC) 5.2 mg/dL 2.6-7.2 N LACTIC DEHYDROGENASE(LDH)[id number] 13:28:00 Test Item Value Reference Range Interpretation Comments LACTIC DEHYDROGENASE(LDH) (test 178 IUnits/L 84-246 N code = LDH) CBC W/AUTO [id number] 13:12:00 Test Item Value Reference Range Interpretation Comments WHITE BLOOD CELL (test code = 7.8 x10 3/uL 4.5-11.0 N WBC) RED BLOOD CELL (test code = 3.75 x10 6/uL 3.54-5.02 N RBC) HEMOGLOBIN (test code = HGB) 9.9 g/dL 11.0-15.0 L HEMATOCRIT (test code = HCT) 30.5 % 33.0-45.0 L MEAN CELL VOLUME (test code = 81.3 fL 81.0-99.0 N MCV) MEAN CELL HGB (test code = MCH) 26.4 pg 27.0-33.0 L MEAN CELL HGB CONCETRATION 32.5 g/dL 33.0-37.0 L (test code = MCHC) RED CELL DISTRIBUTION WIDTH CV 14.7 % 11.5-14.5 H (test code = RDW) PLATELET COUNT (test code = 164 x10 3/uL 150-400 N PLT) NEUTROPHIL % (test code = NT%) 70.5 % 56.0-77.0 N LYMPHOCYTE % (test code = LY%) 20.6 % 14.0-32.0 N NEUTROPHIL # (test code = NT#) 5.52 x10 3/uL 2.0-7.6 N LYMPHOCYTE # (test code = LY#) 1.61 x10 3/uL 1.0-3.8 N MANUAL DIFF REQUIRED (test code NO = MDIFF) RED CELL DISTRIBUTION WIDTH SD 43.1 fL 37.0-54.0 N (test code = RDW-SD) MEAN PLATELET VOLUME (test code 10.3 fL 7.0-9.0 H = MPV) IMMATURE GRANULOCYTE % (test 0.9 % 0.0-2.0 N code = IG%) MONOCYTE % (test code = MO%) 6.3 % 4.8-9.0 N EOSINOPHIL % (test code = EO%) 1.3 % 0.3-3.7 N BASOPHIL % (test code = BA%) 0.4 % 0.0-2.0 N NUCLEATED RBC % (test code = 0.0 % 0-0 N NRBC%) IMMATURE GRANULOCYTE # (test 0.07 x10 3/uL 0.00-0.03 H code = IG#) MONOCYTE # (test code = MO#) 0.49 x10 3/uL 0.1-0.8 N EOSINOPHIL # (test code = EO#) 0.10 x10 3/uL 0.0-0.2 N BASOPHIL # (test code = BA#) 0.03 x10 3/uL 0.0-0.2 N NUCLEATED RBC # (test code = 0.00 x10 3/uL 0.0-0.1 N NRBC#) - BIOPHYS [id number] 00:00:00 [facility] : 1990 Sex: F Name: LIOR HUNT [facility] : 1990 Age/S: 30 / F [address] [place] [address] Unit #: [id number] Loc: SWATHI [place] [address] Phys: Roxana Bender MD Acct: [id number] Dis Date: Status: REG ER PHONE #: [phone] Exam Date: 01/06/2021 1352 FAX #: [phone] Reason: Decreased movements EXAMS: CPT CODE: [id number] US BIOPHYS PROF [id number] PROCEDURE INFORMATION: Exam: US Biophysical Profile Without Non-Stress Test Exam date and time: 01/06/2021 1:25 PM Age: 30 years old Clinical indication: status abnormalities: ; movements, decreased; Single gestation; Third trimester (=28 weeks 0 days); ; Additional info: Decreased movements TECHNIQUE: Imaging protocol: US biophysical profile without non-stress testing. COMPARISON: None relevant for the current gestation. FINDINGS: The fetus was observed sonographically for 10 minutes for Biophysical Profile Scoring. EGA: 36 weeks, 1 days. Presentation: Cephalic. heart rate: 131 bpm Placenta location: The placenta is fundal, non-previa without signs of retroplacental hemorrhage. The cervix is obscured. Grade: 2 S/D ratio: 2.4 DASH: 19.82 cm; Deepest pocket: 7.7 cm breathing movements: 2 Gross body movements: 2 tone: 2 Amniotic fluid volume: 2 IMPRESSION: 1. Biophysical profile score of 8 out of 8. at 1405 Reported and signed by: Silas Baker M.D. CC: Eric Feldman MD Technologist: Marita Xiong RDMS(Casandra)(BR) Trnscb Date/Time: 01/06/2021 (1405) [id number] Orig Print D/T: S: 01/06/2021 (1406) Probe: PAGE 1 Signed ReportCOMPREHENSIVE METABOLIC [id number] 17:36:00 Test Item Value Reference Range Interpretation Comments SODIUM (test code = NA) 136 mEq/L 134-147 N POTASSIUM (test code = 3.7 mEq/L 3.4-5.0 N K) CHLORIDE (test code = 108 mEq/L 100-108 N CL) CARBON DIOXIDE (test 22 mEq/l 21-33 N code = CO2) ANION GAP (test code = 10 0-20 N GAP) GLUCOSE (test code = 108 mg/dL 70-110 N GLU) BLOOD UREA NITROGEN 9 mg/dL 7-18 N (test code = BUN) GLOMERULAR FILTRATION 145.9 110-120 H Units of measure = RATE (test code = GFR) ml/mi n/1.73 m2 CREATININE (test code = 0.5 mg/dL 0.6-1.3 L CREAT) TOTAL PROTEIN (test 6.5 g/dL 6.4-8.2 N code = PROT) ALBUMIN (test code = 2.50 g/dL 3.4-5.0 L ALB) CALCIUM (test code = 8.8 mg/dL 8.0-10.5 N CA) BILIRUBIN TOTAL (test 0.20 mg/dL 0.0-1.0 N code = BILT) SGOT/AST (test code = 18 IUnit/L 15-37 N AST) SGPT/ALT (test code = 13 IUnit/L 30-65 L ALT) ALKALINE PHOSPHATASE 92 IUnit/L 20-125 N TOTAL (test code = ALKP) URINALYSIS [id number] 17:31:00 Test Item Value Reference Range Interpretation Comments UA COLOR (test code = COLU) YELLOW YEL/STRAW UA APPEARANCE (test code = SL CLOUDY CLEAR APPU) UA GLUCOSE DIPSTICK (test NEGATIVE NEGATIVE code = DGLUU) UA BILIRUBIN DIPSTICK (test NEGATIVE NEGATIVE code = BILU) UA KETONE DIPSTICK (test NEGATIVE NEGATIVE code = KETU) UA SPECIFIC GRAVITY (test 1.020 1.005-1.030 N code = SGU) UA BLOOD DIPSTICK (test NEGATIVE NEGATIVE code = TORITO) UA PH DIPSTICK (test code = 6.0 5.0-7.0 N DAMI) UA PROTEIN DIPSTICK (test NEGATIVE NEGATIVE code = PROU) UA UROBILINIOGEN DIPSTICK 0.2 mg/dL 0.2-1.0 (test code = URO) UA NITRITE DIPSTICK (test NEGATIVE NEGATIVE code = NEENA) UA LEUKOCYTE ESTERASE NEGATIVE NEGATIVE DIPSTICK (test code = LEUU) UA RBC (test code = RBCU) NONE SEEN RBC/HPF 0-3 UA WBC NO REFLEX (test code 0-3 WBC/HPF 0-3 = WBCUCL) UA BACTERIA (test code = TRACE /HPF NONE SEEN BACU) UA SQUAMOUS CELLS (test 6-10 /HPF NONE SEEN A code = SQU) UA MUCUS (test code = MUCU) TRACE /LPF NONE SEEN UR PROTEIN/CREATININE [id number] 17:31:00 Test Item Value Reference Range Interpretation Comments UR PROTEIN RANDOM 29 mg/dL No te: Change in (test code = UNITS of MEASUR EMENT. PROTU) The Refe rence Range and Metho d Performance specificationsh ave not been establishe d for this fluid. The test resultshould be correlated into the clinical contex t forinterpretati on. UR CREATININE 108.2 mg/dL The Reference Range and RANDOM (test code Method Per formance = CREATU) specificationsh ave not been establishe d for this fluid. The test resultshould be correlated into the clinical contex t forinterpretati on. PROTEIN/CREATININ 0.27 E RATIO (test code = P/CRATIO) CBC W/AUTO [id number] 17:26:00 Test Item Value Reference Range Interpretation Comments WHITE BLOOD CELL (test code = 7.3 x10 3/uL 4.5-11.0 N WBC) RED BLOOD CELL (test code = 3.69 x10 6/uL 3.54-5.02 N RBC) HEMOGLOBIN (test code = HGB) 9.8 g/dL 11.0-15.0 L HEMATOCRIT (test code = HCT) 30.7 % 33.0-45.0 L MEAN CELL VOLUME (test code = 83.2 fL 81.0-99.0 N MCV) MEAN CELL HGB (test code = MCH) 26.6 pg 27.0-33.0 L MEAN CELL HGB CONCETRATION 31.9 g/dL 33.0-37.0 L (test code = MCHC) RED CELL DISTRIBUTION WIDTH CV 14.6 % 11.5-14.5 H (test code = RDW) RED CELL DISTRIBUTION WIDTH SD 43.8 fL 37.0-54.0 N (test code = RDW-SD) PLATELET COUNT (test code = 158 x10 3/uL 150-400 N PLT) MEAN PLATELET VOLUME (test code 10.5 fL 7.0-9.0 H = MPV) NEUTROPHIL % (test code = NT%) 71.4 % 56.0-77.0 N IMMATURE GRANULOCYTE % (test 0.7 % 0.0-2.0 N code = IG%) LYMPHOCYTE % (test code = LY%) 19.6 % 14.0-32.0 N MONOCYTE % (test code = MO%) 6.9 % 4.8-9.0 N EOSINOPHIL % (test code = EO%) 1.1 % 0.3-3.7 N BASOPHIL % (test code = BA%) 0.3 % 0.0-2.0 N NUCLEATED RBC % (test code = 0.0 % 0-0 N NRBC%) NEUTROPHIL # (test code = NT#) 5.20 x10 3/uL 2.0-7.6 N IMMATURE GRANULOCYTE # (test 0.05 x10 3/uL 0.00-0.03 H code = IG#) LYMPHOCYTE # (test code = LY#) 1.43 x10 3/uL 1.0-3.8 N MONOCYTE # (test code = MO#) 0.50 x10 3/uL 0.1-0.8 N EOSINOPHIL # (test code = EO#) 0.08 x10 3/uL 0.0-0.2 N BASOPHIL # (test code = BA#) 0.02 x10 3/uL 0.0-0.2 N NUCLEATED RBC # (test code = 0.00 x10 3/uL 0.0-0.1 N NRBC#) MANUAL DIFF REQUIRED (test code NO = MDIFF) [id number] 22:11:00 Test Item Value Reference Range Interpretation Comments FIBRONECTIN (test code = FFN) NEGATIVE NEGATIVE UA RFLX MICR CULT IF [id number] 21:37:00 Test Item Value Reference Range Interpretation Comments UA COLOR (test code = COLU) YELLOW YEL/STRAW UA APPEARANCE (test code = SL CLOUDY CLEAR APPU) UA GLUCOSE DIPSTICK (test code NEGATIVE NEGATIVE = DGLUU) UA BILIRUBIN DIPSTICK (test NEGATIVE NEGATIVE code = BILU) UA KETONE DIPSTICK (test code NEGATIVE NEGATIVE = KETU) UA SPECIFIC GRAVITY (test code 1.023 1.005-1.030 N = SGU) UA BLOOD DIPSTICK (test code = NEGATIVE NEGATIVE TORITO) UA PH DIPSTICK (test code = 6.0 5.0-7.0 N DAMI) UA PROTEIN DIPSTICK (test code NEGATIVE NEGATIVE = PROU) UA UROBILINIOGEN DIPSTICK 0.2 mg/dL 0.2-1.0 (test code = URO) UA NITRITE DIPSTICK (test code NEGATIVE NEGATIVE = NEENA) UA LEUKOCYTE ESTERASE DIPSTICK NEGATIVE NEGATIVE (test code = LEUU) UA WBC (test code = WBCU) 0-3 WBC/HPF 0-3 UA RBC (test code = RBCU) 0-3 RBC/HPF 0-3 UA WBC NO REFLEX (test code = 0-3 WBC/HPF 0-3 WBCUCL) UA BACTERIA (test code = BACU) NONE SEEN /HPF NONE SEEN UA SQUAMOUS CELLS (test code = 0-5 /HPF NONE SEEN SQU) UA MUCUS (test code = MUCU) TRACE /LPF NONE SEEN Indication for culture: Flank PainSpecimen Description: CLEAN CATCHPOCT URINALYSIS W/O SPECIFIC [id number] 21:40:00 Test Item Value Reference Range Interpretation Comments POCT PH U (test code = 3254) N/A 5-8 POCT U LEUK EST (test code = N/A Negative - Negative 3263) POCT U NIT (test code = 3262) N/A Negative - Negative POCT U PROT (test code = 3259) Negative Negative - Negative POCT U GLU (test code = 3256) Negative Negative - Negative POCT U KETONE (test code = 3258) N/A Negative - Negative POCT U BLD (test code = 3257) N/A Negative - Negative [facility] [id number] 07:40:00 RUN DATE: 09/27/19 [facility] *LIVE* PAGE 1 RUN TIME: 739 Specimen Inquiry RUN USER: INTERFACE --------- ---PATIENT: LIOR HUNT LOC: MADDI U #: [id number] AGE/SX: 28/F ROOM: [facility] [place] RE09/20/19REG DR: Eric Feldman MD : 91 BED: 1 DIS: 09/22/19 STATUS: DIS IN TLOC: SPEC #: [id number] RECD: 09/21/19 STATUS: ELIAS DOHERTY #: [id number] STEPHAN: 09/21/[address]: Eric Feldman MD ENTERED: 09/26/19 SP TYPE: SURG SPEC OTHR DR: No Primary or Family Physician Ja Wilcox JR, MDORDERED: GROSS AND MICRO CODES: [id number] - PLACENTA, NOS COPIES TO: No Primary or Family Physician Eric Feldman MD [address] [place] [address] [place] [phone] [email or web address] [address] [address] PROCEDURES: GROSS AND MICRO (Incomplete) TISSUES: 1. PLACENTA, NOS - Placenta, 3rd trimester FINAL DIAGNOSIS Placenta: - Third trimester placenta with acute chorionitis, deciduitis; 571 g (expected mean 499 g). - Trivascular umbilical cord with mild acute vasculitis. GROSS AND MICROSCOPIC GROSS DESCRIPTION: Received in formalin andlabeled "Placenta" is a 20.5 x 15.3 x 3 cm placenta. The trivascular umbilical cord measures 31 cm in length, 1 cm in diameter, arising 5.2 cm from the nearest margin. The membranes attach marginally and are focally cloudy. The placenta is 571 g after removal of the membranes and cord. The surface is garcia-blue, with good visibility of underlying vessels. The maternal surface is red-brown and intact. The parenchyma is spongy and contains no lesions. Section code: (A) - cord, midportion and the end (cut); (B) CONTINUED ON NEXT PAGE RUN DATE: 09/27/19 [facility] *LIVE* PAGE 2 RUN TIME: 0740 Specimen Inquiry RUN USER: INTERFACE SPEC #: [id number] PATIENT: LIOR HUNT #[id number] (Continu ed) GROSS AND MICROSCOPIC (Continued) membranes and cord at placental end; (C-D) - warehouse representative sections ofplacenta. MICROSCOPIC EXAMINATION: The trivascular umbilical cord contains acute inflammatory cells within vessel gacria. The membranes have acute inflammatory cells within the chorion. The villi are predominantly small, with decreased cellularity and prominent vasculature. POST-OP DIAGNOSIS Term intrauterine , , repeat , delivered PRE-OP DIAGNOSIS Term intrauterine , , repeat Signed SIGNATURE ON FILE Kristine Garcia MD 09/27/19 0740 END OF REPORT CBC W/AUTO [id number] 08:55:00 Test Item Value Reference Range Interpretation Comments WHITE BLOOD CELL (test code = 6.40 x10 3/uL 4.5-11.0 N WBC) RED BLOOD CELL (test code = 3.38 x10 6/uL 3.54-5.02 L RBC) HEMOGLOBIN (test code = HGB) 9.3 g/dL 11.0-15.0 L HEMATOCRIT (test code = HCT) 29.6 % 33.0-45.0 L MEAN CELL VOLUME (test code = 87.6 fL 81.0-99.0 N MCV) MEAN CELL HGB (test code = MCH) 27.5 pg 27.0-33.0 N MEAN CELL HGB CONCETRATION 31.4 g/dL 33.0-37.0 L (test code = MCHC) RED CELL DISTRIBUTION WIDTH CV 14.8 % 11.5-14.5 H (test code = RDW) RED CELL DISTRIBUTION WIDTH SD 47.6 fL 37.0-54.0 N (test code = RDW-SD) PLATELET COUNT (test code = 116 x10 3/uL 150-400 L PLT) MEAN PLATELET VOLUME (test code 11.1 fL 7.0-9.0 H = MPV) NEUTROPHIL % (test code = NT%) 63.7 % 56.0-77.0 N IMMATURE GRANULOCYTE % (test 0.5 % 0.0-2.0 N code = IG%) LYMPHOCYTE % (test code = LY%) 26.1 % 14.0-32.0 N MONOCYTE % (test code = MO%) 7.5 % 4.8-9.0 N EOSINOPHIL % (test code = EO%) 1.9 % 0.3-3.7 N BASOPHIL % (test code = BA%) 0.3 % 0.0-2.0 N NUCLEATED RBC % (test code = 0.0 % 0-0 N NRBC%) NEUTROPHIL # (test code = NT#) 4.08 x10 3/uL 2.0-7.6 N IMMATURE GRANULOCYTE # (test 0.03 x10 3/uL 0.00-0.03 N code = IG#) LYMPHOCYTE # (test code = LY#) 1.67 x10 3/uL 1.0-3.8 N MONOCYTE # (test code = MO#) 0.48 x10 3/uL 0.1-0.8 N EOSINOPHIL # (test code = EO#) 0.12 x10 3/uL 0.0-0.2 N BASOPHIL # (test code = BA#) 0.02 x10 3/uL 0.0-0.2 N NUCLEATED RBC # (test code = 0.00 x10 3/uL 0.0-0.1 N NRBC#) MANUAL DIFF REQUIRED (test code NO = MDIFF) COMPREHENSIVE METABOLIC [id number] 08:46:00 Test Item Value Reference Range Interpretation Comments SODIUM (test code = NA) 138 mEq/L 134-147 N POTASSIUM (test code = 3.8 mEq/L 3.4-5.0 N K) CHLORIDE (test code = 108 mEq/L 100-108 N CL) CARBON DIOXIDE (test 23 mEq/L 21-33 N code = CO2) ANION GAP (test code = 11 0-20 N GAP) GLUCOSE (test code = 72 mg/dL 70-110 N GLU) BLOOD UREA NITROGEN 9 mg/dL 7-18 N (test code = BUN) GLOMERULAR FILTRATION 148.0 110-120 H Units of measure = RATE (test code = GFR) ml/mi n/1.73 m2 CREATININE (test code = 0.5 mg/dL 0.6-1.3 L CREAT) TOTAL PROTEIN (test 5.3 g/dL 6.4-8.2 L code = PROT) ALBUMIN (test code = 1.80 g/dL 3.4-5.0 L ALB) CALCIUM (test code = 8.1 mg/dL 8.0-10.5 N CA) BILIRUBIN TOTAL (test 0.2 MG/DL <1.5 N code = BILT) SGOT/AST (test code = 19 IUnit/L 15-37 N AST) SGPT/ALT (test code = 14 IUnit/L 15-65 L ALT) ALKALINE PHOSPHATASE 114 IUnit/L 20-125 N TOTAL (test code = ALKP) RAPID PLASMA [id number] 14:28:00 Test Item Value Reference Range Interpretation Comments RAPID PLASMA REAGIN (test code = NONREACTIVE NONREACTIVE RPR) AG HEPATITIS B [id number] 14:28:00 Test Item Value Reference Range Interpretation Comments AG HEPATITIS B SURFACE NON REACTIVE INDEX NonReactive (test code = HBSAG) AB HIV 1 14:28:00 Test Item Value Reference Range Interpretation Comments AB HIV 1 2 (test code = NONREACTIVE INDEX NONREACTIVE [id number]) RAPID PLASMA [id number] 10:20:00 Test Item Value Reference Range Interpretation Comments RAPID PLASMA REAGIN (test code = NONREACTIVE NONREACTIVE RPR) AG HEPATITIS B [id number] 10:20:00 Test Item Value Reference Range Interpretation Comments AG HEPATITIS B SURFACE NON REACTIVE INDEX NonReactive (test code = HBSAG) AB HIV 1 10:20:00 Test Item Value Reference Range Interpretation Comments AB HIV 1 2 (test code = [id number]) INDEX NONREACTIVE RAPID PLASMA [id number] 06:51:00 Test Item Value Reference Range Interpretation Comments RAPID PLASMA REAGIN (test code = RPR) NONREACTIVE AG HEPATITIS B [id number] 06:51:00 Test Item Value Reference Range Interpretation Comments AG HEPATITIS B SURFACE NON REACTIVE INDEX NonReactive (test code = HBSAG) AB HIV 1 06:51:00 Test Item Value Reference Range Interpretation Comments AB HIV 1 2 (test code = [id number]) INDEX NONREACTIVE CBC W/AUTO [id number] 06:27:00 Test Item Value Reference Range Interpretation Comments WHITE BLOOD CELL (test code = 7.48 x10 3/uL 4.5-11.0 N WBC) RED BLOOD CELL (test code = 3.79 x10 6/uL 3.54-5.02 N RBC) HEMOGLOBIN (test code = HGB) 10.4 g/dL 11.0-15.0 L HEMATOCRIT (test code = HCT) 32.9 % 33.0-45.0 L MEAN CELL VOLUME (test code = 86.8 fL 81.0-99.0 N MCV) MEAN CELL HGB (test code = MCH) 27.4 pg 27.0-33.0 N MEAN CELL HGB CONCETRATION 31.6 g/dL 33.0-37.0 L (test code = MCHC) RED CELL DISTRIBUTION WIDTH CV 14.7 % 11.5-14.5 H (test code = RDW) RED CELL DISTRIBUTION WIDTH SD 46.2 fL 37.0-54.0 N (test code = RDW-SD) PLATELET COUNT (test code = 151 x10 3/uL 150-400 N PLT) MEAN PLATELET VOLUME (test code 11.5 fL 7.0-9.0 H = MPV) NEUTROPHIL % (test code = NT%) 66.0 % 56.0-77.0 N IMMATURE GRANULOCYTE % (test 0.5 % 0.0-2.0 N code = IG%) LYMPHOCYTE % (test code = LY%) 23.7 % 14.0-32.0 N MONOCYTE % (test code = MO%) 7.9 % 4.8-9.0 N EOSINOPHIL % (test code = EO%) 1.5 % 0.3-3.7 N BASOPHIL % (test code = BA%) 0.4 % 0.0-2.0 N NUCLEATED RBC % (test code = 0.0 % 0-0 N NRBC%) NEUTROPHIL # (test code = NT#) 4.94 x10 3/uL 2.0-7.6 N IMMATURE GRANULOCYTE # (test 0.04 x10 3/uL 0.00-0.03 H code = IG#) LYMPHOCYTE # (test code = LY#) 1.77 x10 3/uL 1.0-3.8 N MONOCYTE # (test code = MO#) 0.59 x10 3/uL 0.1-0.8 N EOSINOPHIL # (test code = EO#) 0.11 x10 3/uL 0.0-0.2 N BASOPHIL # (test code = BA#) 0.03 x10 3/uL 0.0-0.2 N NUCLEATED RBC # (test code = 0.00 x10 3/uL 0.0-0.1 N NRBC#) MANUAL DIFF REQUIRED (test code NO = MDIFF) COVID 19 Asymptomatic IH [id number] 11:25:00 Test Item Value Reference Range Interpretation Comments COVID 19 Asymptomatic Negative Negative A nega tive result is IH AG (test code = presumpti ve and should COVNONPUIAG) be confirmedwit h an FDA authorized mole cular assay, if neces dina forpatient chepe gement.A positive result does not rule out co-inf ections withother patho gens.This test detects pierre th viable (live) and non-viable,SARS -CoV, and SARS-CoV-2. Garland t performance dep ends on theamount of vi anthony (antigen) in th e sample.This garland t has not been FDA cleare d or approved; the t est hasbeen authori zed by FDA under an Em ergency Use Authorizati on(EUA) for use by labo ratories certified under the CLIA thatmeet the requirements to perform moderate, high or waivedcomplexit y tests. URINALYSIS [id number] 23:42:00 Test Item Value Reference Range Interpretation Comments UA COLOR (test code = COLU) YELLOW YEL/STRAW UA APPEARANCE (test code = APPU) CLEAR CLEAR UA GLUCOSE DIPSTICK (test code = NEGATIVE NEGATIVE DGLUU) UA BILIRUBIN DIPSTICK (test code NEGATIVE NEGATIVE = BILU) UA KETONE DIPSTICK (test code = NEGATIVE NEGATIVE KETU) UA SPECIFIC GRAVITY (test code = 1.012 1.005-1.030 N SGU) UA BLOOD DIPSTICK (test code = NEGATIVE NEGATIVE TORITO) UA PH DIPSTICK (test code = DAMI) 6.0 5.0-7.0 N UA PROTEIN DIPSTICK (test code = NEGATIVE NEGATIVE PROU) UA UROBILINIOGEN DIPSTICK (test 0.2 mg/dL 0.2-1.0 code = URO) UA NITRITE DIPSTICK (test code = NEGATIVE NEGATIVE NEENA) UA LEUKOCYTE ESTERASE DIPSTICK NEGATIVE NEGATIVE (test code = LEUU) UA RBC (test code = RBCU) 0-3 RBC/HPF 0-3 UA WBC NO REFLEX (test code = 0-3 WBC/HPF 0-3 WBCUCL) UA BACTERIA (test code = BACU) TRACE /HPF NONE SEEN UA SQUAMOUS CELLS (test code = 0-5 /HPF NONE SEEN SQU) UA MUCUS (test code = MUCU) TRACE /LPF NONE SEEN AMNISURE (ROM) [id number] 23:12:00 Test Item Value Reference Range Interpretation Comments AMNISURE (ROM) TEST (test code = NEGATIVE NEGATIVE AMNI) [id number] 21:25:00 Test Item Value Reference Range Interpretation Comments FIBRONECTIN (test code = FFN) NEGATIVE NEGATIVE URINALYSIS [id number] 21:13:00 Test Item Value Reference Range Interpretation Comments UA COLOR (test code = COLU) YELLOW YEL/STRAW UA APPEARANCE (test code = APPU) CLEAR CLEAR UA GLUCOSE DIPSTICK (test code = NEGATIVE NEGATIVE DGLUU) UA BILIRUBIN DIPSTICK (test code NEGATIVE NEGATIVE = BILU) UA KETONE DIPSTICK (test code = NEGATIVE NEGATIVE KETU) UA SPECIFIC GRAVITY (test code = 1.011 1.005-1.030 N SGU) UA BLOOD DIPSTICK (test code = NEGATIVE NEGATIVE TORITO) UA PH DIPSTICK (test code = DAMI) 7.0 5.0-7.0 N UA PROTEIN DIPSTICK (test code = NEGATIVE NEGATIVE PROU) UA UROBILINIOGEN DIPSTICK (test 0.2 mg/dL 0.2-1.0 code = URO) UA NITRITE DIPSTICK (test code = NEGATIVE NEGATIVE NEENA) UA LEUKOCYTE ESTERASE DIPSTICK NEGATIVE NEGATIVE (test code = LEUU) UA RBC (test code = RBCU) 0-3 RBC/HPF 0-3 UA WBC NO REFLEX (test code = 0-3 WBC/HPF 0-3 WBCUCL) UA BACTERIA (test code = BACU) 1+ /HPF NONE SEEN A UA SQUAMOUS CELLS (test code = 0-5 /HPF NONE SEEN SQU) UA MUCUS (test code = MUCU) TRACE /LPF NONE SEEN COMPREHENSIVE METABOLIC [id number] 21:31:00 Test Item Value Reference Range Interpretation Comments SODIUM (test code = NA) 137 mEq/L 134-147 N POTASSIUM (test code = 3.5 mEq/L 3.4-5.0 N K) CHLORIDE (test code = 106 mEq/L 100-108 N CL) CARBON DIOXIDE (test 22 mEq/L 21-33 N code = CO2) ANION GAP (test code = 13 0-20 N GAP) GLUCOSE (test code = 104 mg/dL 70-110 N GLU) BLOOD UREA NITROGEN 7 mg/dL 7-18 N (test code = BUN) GLOMERULAR FILTRATION 148.0 110-120 H Units of measure = RATE (test code = GFR) ml/mi n/1.73 m2 CREATININE (test code = 0.5 mg/dL 0.6-1.3 L CREAT) TOTAL PROTEIN (test 6.6 g/dL 6.4-8.2 N code = PROT) ALBUMIN (test code = 2.40 g/dL 3.4-5.0 L ALB) CALCIUM (test code = 8.6 mg/dL 8.0-10.5 N CA) BILIRUBIN TOTAL (test 0.2 MG/DL <1.5 N code = BILT) SGOT/AST (test code = 12 IUnit/L 15-37 L AST) SGPT/ALT (test code = 17 IUnit/L 15-65 N ALT) ALKALINE PHOSPHATASE 82 IUnit/L 20-125 N TOTAL (test code = ALKP) CBC W/AUTO [id number] 21:09:00 Test Item Value Reference Range Interpretation Comments WHITE BLOOD CELL (test code = 10.02 x10 3/uL 4.5-11.0 N WBC) RED BLOOD CELL (test code = 3.89 x10 6/uL 3.54-5.02 N RBC) HEMOGLOBIN (test code = HGB) 11.2 g/dL 11.0-15.0 N HEMATOCRIT (test code = HCT) 34.2 % 33.0-45.0 N MEAN CELL VOLUME (test code = 87.9 fL 81.0-99.0 N MCV) MEAN CELL HGB (test code = 28.8 pg 27.0-33.0 N MCH) MEAN CELL HGB CONCETRATION 32.7 g/dL 33.0-37.0 L (test code = MCHC) RED CELL DISTRIBUTION WIDTH CV 13.2 % 11.5-14.5 N (test code = RDW) RED CELL DISTRIBUTION WIDTH SD 42.3 fL 37.0-54.0 N (test code = RDW-SD) PLATELET COUNT (test code = 161 x10 3/uL 150-400 N PLT) MEAN PLATELET VOLUME (test 10.2 fL 7.0-9.0 H code = MPV) NEUTROPHIL % (test code = NT%) 71.0 % 56.0-77.0 N IMMATURE GRANULOCYTE % (test 0.5 % 0.0-2.0 N code = IG%) LYMPHOCYTE % (test code = LY%) 21.3 % 14.0-32.0 N MONOCYTE % (test code = MO%) 5.6 % 4.8-9.0 N EOSINOPHIL % (test code = EO%) 1.3 % 0.3-3.7 N BASOPHIL % (test code = BA%) 0.3 % 0.0-2.0 N NUCLEATED RBC % (test code = 0.0 % 0-0 N NRBC%) NEUTROPHIL # (test code = NT#) 7.12 x10 3/uL 2.0-7.6 N IMMATURE GRANULOCYTE # (test 0.05 x10 3/uL 0.00-0.03 H code = IG#) LYMPHOCYTE # (test code = LY#) 2.13 x10 3/uL 1.0-3.8 N MONOCYTE # (test code = MO#) 0.56 x10 3/uL 0.1-0.8 N EOSINOPHIL # (test code = EO#) 0.13 x10 3/uL 0.0-0.2 N BASOPHIL # (test code = BA#) 0.03 x10 3/uL 0.0-0.2 N NUCLEATED RBC # (test code = 0.00 x10 3/uL 0.0-0.1 N NRBC#) MANUAL DIFF REQUIRED (test NO code = MDIFF) URINALYSIS [id number] 16:25:00 Test Item Value Reference Range Interpretation Comments UA COLOR (test code = COLU) YELLOW YEL/STRAW UA APPEARANCE (test code = APPU) CLEAR CLEAR UA GLUCOSE DIPSTICK (test code = NEGATIVE NEGATIVE DGLUU) UA BILIRUBIN DIPSTICK (test code NEGATIVE NEGATIVE = BILU) UA KETONE DIPSTICK (test code = NEGATIVE NEGATIVE KETU) UA SPECIFIC GRAVITY (test code = 1.020 1.005-1.030 N SGU) UA BLOOD DIPSTICK (test code = NEGATIVE NEGATIVE TORITO) UA PH DIPSTICK (test code = DAMI) 6.0 5.0-7.0 N UA PROTEIN DIPSTICK (test code = NEGATIVE NEGATIVE PROU) UA UROBILINIOGEN DIPSTICK (test 0.2 mg/dL 0.2-1.0 code = URO) UA NITRITE DIPSTICK (test code = NEGATIVE NEGATIVE NEENA) UA LEUKOCYTE ESTERASE DIPSTICK NEGATIVE NEGATIVE (test code = LEUU) UA RBC (test code = RBCU) 0-3 RBC/HPF 0-3 UA WBC NO REFLEX (test code = 0-3 WBC/HPF 0-3 WBCUCL) UA BACTERIA (test code = BACU) 2+ /HPF NONE SEEN A UA SQUAMOUS CELLS (test code = 0-5 /HPF NONE SEEN SQU) UA MUCUS (test code = MUCU) TRACE /LPF NONE SEEN [id number] 20:40:00 Test Item Value Reference Range Interpretation Comments MAGNESIUM (test code = MAG) 4.60 mg/dL 1.8-2.4 HH COMMENTS: 6 hours after loading doseCBC W/AUTO [id number] 14:46:00 Test Item Value Reference Range Interpretation Comments WHITE BLOOD CELL (test code = 7.35 x10 3/uL 4.5-11.0 N WBC) RED BLOOD CELL (test code = 3.91 x10 6/uL 3.54-5.02 N RBC) HEMOGLOBIN (test code = HGB) 11.2 g/dL 11.0-15.0 N HEMATOCRIT (test code = HCT) 34.4 % 33.0-45.0 N MEAN CELL VOLUME (test code = 88.0 fL 81.0-99.0 N MCV) MEAN CELL HGB (test code = MCH) 28.6 pg 27.0-33.0 N MEAN CELL HGB CONCETRATION 32.6 g/dL 33.0-37.0 L (test code = MCHC) RED CELL DISTRIBUTION WIDTH CV 13.2 % 11.5-14.5 N (test code = RDW) RED CELL DISTRIBUTION WIDTH SD 42.2 fL 37.0-54.0 N (test code = RDW-SD) PLATELET COUNT (test code = 163 x10 3/uL 150-400 N PLT) MEAN PLATELET VOLUME (test code 10.5 fL 7.0-9.0 H = MPV) NEUTROPHIL % (test code = NT%) 68.0 % 56.0-77.0 N IMMATURE GRANULOCYTE % (test 0.5 % 0.0-2.0 N code = IG%) LYMPHOCYTE % (test code = LY%) 23.3 % 14.0-32.0 N MONOCYTE % (test code = MO%) 6.7 % 4.8-9.0 N EOSINOPHIL % (test code = EO%) 1.2 % 0.3-3.7 N BASOPHIL % (test code = BA%) 0.3 % 0.0-2.0 N NUCLEATED RBC % (test code = 0.0 % 0-0 N NRBC%) NEUTROPHIL # (test code = NT#) 5.00 x10 3/uL 2.0-7.6 N IMMATURE GRANULOCYTE # (test 0.04 x10 3/uL 0.00-0.03 H code = IG#) LYMPHOCYTE # (test code = LY#) 1.71 x10 3/uL 1.0-3.8 N MONOCYTE # (test code = MO#) 0.49 x10 3/uL 0.1-0.8 N EOSINOPHIL # (test code = EO#) 0.09 x10 3/uL 0.0-0.2 N BASOPHIL # (test code = BA#) 0.02 x10 3/uL 0.0-0.2 N NUCLEATED RBC # (test code = 0.00 x10 3/uL 0.0-0.1 N NRBC#) MANUAL DIFF REQUIRED (test code NO = MDIFF) URINALYSIS [id number] 14:44:00 Test Item Value Reference Range Interpretation Comments UA COLOR (test code = COLU) YELLOW YEL/STRAW UA APPEARANCE (test code = CLEAR CLEAR APPU) UA GLUCOSE DIPSTICK (test code NEGATIVE NEGATIVE = DGLUU) UA BILIRUBIN DIPSTICK (test NEGATIVE NEGATIVE code = BILU) UA KETONE DIPSTICK (test code NEGATIVE NEGATIVE = KETU) UA SPECIFIC GRAVITY (test code 1.016 1.005-1.030 N = SGU) UA BLOOD DIPSTICK (test code = NEGATIVE NEGATIVE TORITO) UA PH DIPSTICK (test code = 6.0 5.0-7.0 N DAMI) UA PROTEIN DIPSTICK (test code NEGATIVE NEGATIVE = PROU) UA UROBILINIOGEN DIPSTICK 0.2 mg/dL 0.2-1.0 (test code = URO) UA NITRITE DIPSTICK (test code NEGATIVE NEGATIVE = NEENA) UA LEUKOCYTE ESTERASE DIPSTICK NEGATIVE NEGATIVE (test code = LEUU) UA RBC (test code = RBCU) 0-3 RBC/HPF 0-3 UA WBC NO REFLEX (test code = 0-3 WBC/HPF 0-3 WBCUCL) UA BACTERIA (test code = BACU) NONE SEEN /HPF NONE SEEN UA SQUAMOUS CELLS (test code = 0-5 /HPF NONE SEEN SQU) UA MUCUS (test code = MUCU) TRACE /LPF NONE SEEN COMPREHENSIVE METABOLIC [id number] 14:42:00 Test Item Value Reference Range Interpretation Comments SODIUM (test code = NA) 138 mEq/L 134-147 N POTASSIUM (test code = 3.9 mEq/L 3.4-5.0 N K) CHLORIDE (test code = 107 mEq/L 100-108 N CL) CARBON DIOXIDE (test 26 mEq/L 21-33 N code = CO2) ANION GAP (test code = 9 0-20 N GAP) GLUCOSE (test code = 77 mg/dL 70-110 N GLU) BLOOD UREA NITROGEN 9 mg/dL 7-18 N (test code = BUN) GLOMERULAR FILTRATION 119.9 110-120 N Units of measure = RATE (test code = GFR) ml/mi n/1.73 m2 CREATININE (test code = 0.6 mg/dL 0.6-1.3 N CREAT) TOTAL PROTEIN (test 6.7 g/dL 6.4-8.2 N code = PROT) ALBUMIN (test code = 2.50 g/dL 3.4-5.0 L ALB) CALCIUM (test code = 8.3 mg/dL 8.0-10.5 N CA) BILIRUBIN TOTAL (test 0.2 MG/DL <1.5 N code = BILT) SGOT/AST (test code = 13 IUnit/L 15-37 L AST) SGPT/ALT (test code = 17 IUnit/L 15-65 N ALT) ALKALINE PHOSPHATASE 88 IUnit/L 20-125 N TOTAL (test code = ALKP) URIC [id number] 14:42:00 Test Item Value Reference Range Interpretation Comments URIC ACID (test code = URIC) 4.8 mg/dL 2.6-7.2 N LACTIC DEHYDROGENASE(LDH)[id number] 14:42:00 Test Item Value Reference Range Interpretation Comments LACTIC DEHYDROGENASE(LDH) (test 133 IUnits/L 84-246 N code = LDH) URINALYSIS [id number] 20:06:00 Test Item Value Reference Range Interpretation Comments UA COLOR (test code = COLU) STRAW YEL/STRAW UA APPEARANCE (test code = APPU) CLEAR CLEAR UA GLUCOSE DIPSTICK (test code = NEGATIVE NEGATIVE DGLUU) UA BILIRUBIN DIPSTICK (test code NEGATIVE NEGATIVE = BILU) UA KETONE DIPSTICK (test code = NEGATIVE NEGATIVE KETU) UA SPECIFIC GRAVITY (test code = 1.008 1.005-1.030 N SGU) UA BLOOD DIPSTICK (test code = NEGATIVE NEGATIVE TORITO) UA PH DIPSTICK (test code = DAMI) 7.0 5.0-7.0 N UA PROTEIN DIPSTICK (test code = NEGATIVE NEGATIVE PROU) UA UROBILINIOGEN DIPSTICK (test 0.2 mg/dL 0.2-1.0 code = URO) UA NITRITE DIPSTICK (test code = NEGATIVE NEGATIVE NEENA) UA LEUKOCYTE ESTERASE DIPSTICK NEGATIVE NEGATIVE (test code = LEUU) UA RBC (test code = RBCU) 0-3 RBC/HPF 0-3 UA WBC NO REFLEX (test code = 0-3 WBC/HPF 0-3 WBCUCL) UA BACTERIA (test code = BACU) TRACE /HPF NONE SEEN UA SQUAMOUS CELLS (test code = 0-5 /HPF NONE SEEN SQU) UA MUCUS (test code = MUCU) TRACE /LPF NONE SEEN RPR, [id number] 03:21:00 Test Item Value Reference Range Interpretation Comments RPR (test code = RPR) Non-Reactive Non-Reactive N Thyroid Stimulating Hormone (TSH)2016-09-19 21:00:00 Test Item Value Reference Range Interpretation Comments TSH (test code = TSH) 1.42 mIU/mL 0.270-4.200 N [id number] 03:12:00 Test Item Value Reference Range Interpretation Comments Amphetamine (test Negative Negative N For diagno stic code = AMPH) purposes only, positive result s should always b e assessedin conjunctionwith the patient's medic al history,clinica l examination and otherfindings.T o fulfill legal requirements, a more specific altern ate chemical method must be used inorder to obtain a Confirmed neli lytical result. GC/MS i s the preferred confi rmatory method. Barbiturates (test Negative Negative N code = STEFAN) Benzodiazepine (test Negative Negative N code = SENTHIL) Cocaine (test code = Negative Negative N COCA) Methadone (test code Negative Negative N = MTHD) Opiates (test code = Negative Negative N OPIA) PCP (test code = PCP) Negative Negative N Propoxyphene (test Negative Negative N code = PROPOX) THC (test code = THC) Negative Negative N Alcohol, Urine (test <0.01 g/dL 0.00-0.01 N code = ETOHU) BHCG, Serum, [id number] 02:02:00 Test Item Value Reference Range Interpretation Comments Preg Qual [Se] (test code = BSHCG) POSITIVE Negative A Alcohol/Ethanol, [id number] 01:51:00 Test Item Value Reference Range Interpretation Comments Alcohol, Ethyl 0.00 g/dL 0.00-0.01 N Intoxicated 0 .080 g/dL or (test code = ETOH) more Urinalysis [id number] 00:18:00 Test Item Value Reference Range Interpretation Comments Color (test code = Yellow Yellow,Straw,Pl N COLOR) yellow Clarity (test code = Clear Clear N CLAR) Specific [place] (test 1.031 1.001-1.035 N code = SPGR) pH (test code = PH) 6.5 5.0-9.0 N Ketone (test code = 5 mg/dL Negative A KET) Glucose (test code = Negative mg/dL Negative N GLUCUR) Protein (test code = Negative mg/dL Negative N PROT) Bilirubin (test code = Negative mg/dL Negative N BILI) Occult Blood (test code Negative Negative N = UDOB) Urobilinogen (test code 0.2 mg/dL 0.2-1.0 N = UROB) Nitrite (test code = Negative Negative N NIT) Leuk Esterase (test Negative Negative N code = LEUK) Micros Exam (test code Indicated = MEXAM) Epithelial Cells (test 10-14 /LPF 0-30 A code = EPI) WBC, Urine (test code = None seen /HPF 0-5 A UWBC) RBC, Urine (test code = None Seen /HPF 0-5 A URBC) Bacteria (test code = Few /HPF BACT) Crystals (test code = Few Calcium Oxalate AZAR) /HPF Comprehensive Metabolic [id number] 00:16:00 Test Item Value Reference Range Interpretation Comments Sodium (test code = 137 mmol/L 135-145 N NA) Potassium (test 3.7 mmol/L 3.5-5.1 N code = K) Chloride (test code 101 mmol/L 98-105 N = CL) Carbon Dioxide 24 mmol/L 22-29 N (test code = CO2) Glucose (test code 86 mg/dL 70-115 N = GLU) Blood Urea Nitrogen 9 mg/dL 6-20 N (test code = BUN) Creatinine (test 0.7 mg/dL 0.5-0.9 N code = CREAT) Calcium (test code 9.2 mg/dL 8.3-10.5 N = CA) Prot Total (test 6.6 g/dL 6.4-8.3 N code = TP) Albumin (test code 3.9 g/dL 3.5-5.2 N = ALB) A/G Ratio (test 1.4 Ratio code = AGRATIO) Globulin (test code 2.7 2.9-3.1 L = GLOB) Bili Total (test <0.1 mg/dL 0.1-0.9 L code = TBIL) Alk Phos (test code 84 U/L 35-104 N = APHOS) AST (test code = 20 U/L 1-32 N AST) ALT (test code = 28 U/L 1-33 N ALT) BUN/Creatinine 12.9 Ratio (test code = BCRATIO) Anion Gap (test 12 mmol/L 7-16 N code = AGAP) Estimated GFR (test >60 eGFR (es timated code = GFR) mL/min/1.73m2 Glomerular David tration Rate) is an est imated value,calculate d from the patient's s maxine creatinine usin g the MDRD equation.I t is NOT the patient 's actual GFR. The eGFR provides a more clinicallyusefu l measure of kidn ey disease than se rum creatinine alone.This calculation steven es sex and race into account, if the informationis provided. If th e race is not provided , and the patient isAfrican-Ameri can, multiply by 1.2 12. If sex is not prov ided, and thepatient is female, multipl y by 0.742. Results for patients <18 ye ars ofage have not been validated by th e MDRD study and shoul d be interpretedwith caution.eGFR Re sult Interpretation: eGFR > or = 60 is in t he Normal RangeeGF R < 60 may mean kidney diseaseeGFR < 1 5 may mean kidney failureRange s recommended by the National Kidney Foundation,http ://nkd ep.nih.gov CBC with [id number] 00:03:00 Test Item Value Reference Range Interpretation Comments WBC (test code = WBC) 9.1 K/cumm 4.4-10.5 N RBC (test code = RBC) 4.35 M/cumm 3.75-5.20 N Hemoglobin (test code = HGB) 12.4 gm/dL 12.2-14.8 N Hematocrit (test code = HCT) 38.0 % 36.5-44.4 N MCV (test code = MCV) 87.2 fL 80-100 N MCH (test code = MCH) 28.4 pg 27.0-32.5 N MCHC (test code = MCHC) 32.6 g/dL 32.0-37.5 N RDW (test code = RDW) 15.6 % 11.5-14.5 H Platelet Count (test code = 183 K/cumm 140-440 N PLTCT) MPV (test code = MPV) 8.8 fL Diff Method (test code = DIFFM) Auto Neutrophil (test code = NEUT) 69.9 % 36-70 N Lymphocyte (test code = LYMPH) 24.9 % 12-44 N Monocyte (test code = MONO) 3.7 % 0-11 N Eosinophil (test code = EOS) 1.2 % 0-7 N Basophil (test code = BASO) 0.2 % 0-2 N Neutro Abs (test code = ANEUT) 6.3 K/cumm 1.6-7.4 N Lymph Abs (test code = ALYMPH) 2.3 K/cumm 0.5-4.6 N Ford Abs (test code = AMONO) 0.3 K/cumm 0.0-1.2 N Eos Abs (test code = AEOS) 0.11 K/cumm 0.00-0.74 N Baso Abs (test code = ABASO) 0.0 K/cumm 0.00-0.21 N Notes Date/Time Note Provider Source 2021-01-08 15:42:00-00:[address] [facility] ([facility]) OB Disch REPORT#:[id number] REPORT STATUS: Signed DATE:01/08/21 TIME: 154 PATIENT: LIOR HUNT UNIT #: [id number] ROOM/BED: [place] [id number] : 91 AGE: 30 SEX: F ATTEND: Alexa Feldman MD ADM AUTHOR: Eric Feldman MD * ALL edits or amendments must be made on the el ectronic/computer document * Subjective Subjective Admission EGA: Weeks: 36 Days: 1 EGA at delivery (wks/days): 36 weeks (1 day) Objective General VS: Vital Signs Date Temp Pulse Resp B/P B/P Mean Pulse Ox FiO2 01/07-01/08 36.4-37.0 82-100 17-18 99-139/61-84 96-98 Last Documented: Result Date Time Pulse Ox 96 01/08 0748 B/P 139/84 01/09 748 Temp 36.4 01/09 748 Pulse 99 01/09 748 Resp 18 01/09 748 B/P Mean 89.0 01/07 2020 PATIENT WEIGHT: Weight (lb): 312 Weight (oz): Weight (kg): 141.521 Physical Exam Lungs: unlabored breathing Neuro: Exam: alert, oriented x3, normal speech Abdomen: post gravid, soft, no abnormal tenderne ss, no guarding, no rebound tenderness Incision site: wound vac Uterus: non-tender Fundus: non-tender Lochia: normal Episiotomy or laceration: none Vulva/Perineum: normal, no hematoma CVA tenderness: none Lower extremities: Edema: trace Results Findings/Data: Laboratory Tests: 01/08 400 Chemistry Sodium (134 - 147 mEq/L) 136 Potassium (3.4 - 5.0 mEq/L) 4.2 Chloride (100 - 108 mEq/L) 104 Carbon Dioxide (21 - 33 mEq/l) 22 Anion Gap (0 - 20) 14 BUN (7 - 18 mg/dL) 8 Creatinine (0.6 - 1.3 mg/dL) 0.6 Glomerular Filtr Rate (110 - 120) 118.2 Glucose (70 - 110 mg/dL) 114 H Calcium (8.0 - 10.5 mg/dL) 8.4 Total Bilirubin (0.0 - 1.0 mg/dL) 0.20 AST (15 - 37 IUnit/L) 24 ALT (30 - 65 IUnit/L) 9 L Total Alk Phosphatase (20 - 125 IUnit/L) 87 Total Protein (6.4 - 8.2 g/dL) 5.8 L Albumin (3.4 - 5.0 g/dL) 2.20 L Hematology WBC (4.5 - 11.0 x10 3/uL) 11.3 H RBC (3.54 - 5.02 x10 6/uL) 3.57 Hgb (11.0 - 15.0 g/dL) 9.3 L Hct (33.0 - 45.0 %) 29.0 L MCV (81.0 - 99.0 fL) 81.2 MCH (27.0 - 33.0 pg) 26.1 L MCHC (33.0 - 37.0 g/dL) 32.1 L RDW (11.5 - 14.5 %) 14.6 H Plt Count (150 - 400 x10 3/uL) 171 MPV (7.0 - 9.0 fL) 11.2 H Neut % (Auto) (56.0 - 77.0 %) 82.3 H Lymph % (Auto) (14.0 - 32.0 %) 12.6 L Ford % (Auto) (4.8 - 9.0 %) 4.2 L Eos % (Auto) (0.3 - 3.7 %) 0.2 L Baso % (Auto) (0.0 - 2.0 %) 0.3 Neut # (Auto) (2.0 - 7.6 x10 3/uL) 9.30 H Lymph # (Auto) (1.0 - 3.8 x10 3/uL) 1.42 Ford # (Auto) (0.1 - 0.8 x10 3/uL) 0.48 Eos # (Auto) (0.0 - 0.2 x10 3/uL) 0.02 Baso # (Auto) (0.0 - 0.2 x10 3/uL) 0.03 Abs Immat Gran (auto) (0.00 - 0.03 x10 3/uL) 0. 05 H Add Manual Diff NO Immature Gran % (0.0 - 2.0 %) 0.4 Nucleated RBC % (0 - 0 %) 0.0 Nucleated RBCs # (Man) (0.0 - 0.1 x10 3/uL) 0.0 0 Discharge Summary General Assessment: nml progress Date of admission: Date of admission: 01/06/21 Hospital course: repeat admit, spinal anesthesia, nml postop/postpart care Procedures: repeat CS delivery Discharge condition: stable Discharge to: Home/Self Care Baby A: status: live born Gender: male 1 minute: 8 5 minutes: 9 Plan: routine care, discharge today Vaginal packing at delivery: No Discharge Instructions Instructions: routine instr sheet given, instr a nd warnings rev'd, specific instr as noted Diet: Regular Activity: No [place] for 6 Wks Additional discharge routines: None Contraception discussed: abstinence for 4-6 week s, will discuss at PP visit Discharge meds: Continue taking these medications: PNV WITH CA/IRON/FA/DHA (PRENATE ESSENTIAL) 1 EA CH CAP 1 CAPSULE ORAL DAILY. Prescriptions: e-prescribe Consultation(s): Consultation performed: anesthesia Add'l Follow-up Appointments Attending Physician: Attending Physician: Eric Feldman MD at 1548 RPT #:[id number] END OF REPORT 2021-01-08 15:40:00-00:[address] [facility] ([facility]) OB Postpart Progr Note REPORT#:[id number] REPORT STATUS: Signed DATE:01/08/21 TIME: 1540 PATIENT: LIOR HUNT UNIT #: [id number] ROOM/BED: [place] [id number] : 91 AGE: 30 SEX: F ATTEND: Alexa Feldman MD ADM AUTHOR: Eric Feldman MD * ALL edits or amendments must be made on the [employer]/computer document * Subjective Subjective Admission EGA: Weeks: 36 Days: 1 EGA at delivery (wks/days): 36 weeks (1 day) Objective General VS: Vital Signs: Date Time Temp Pulse Resp B/P B/P Pulse O2 O2 F low FiO2 Mean Ox Delivery Rate 01/08 0748 36.4 99 18 139/84 96 01/08 0017 37.0 82 17 116/68 96 01/07 2019 36.8 100 17 99/61 98 PATIENT WEIGHT: Weight (lb): 312 Weight (oz): Weight (kg): 141.521 Physical Exam Neuro: Exam: alert, oriented x3, normal speech Abdomen: soft, no abnormal tenderness, no guardi ng, no rebound tenderness Incision site: No distress Uterus: non-tender Fundus: non-tender Lochia: normal Lacerations: Perineal laceration(s): None Episiotomy or laceration: none Vulva/Perineum: normal, no hematoma CVA tenderness: none Lower extremities: Edema: none Blood Loss Blood loss at delivery: Blood loss at delivery: <1K: no sx hypovol=no he m, no more than expected Cause of the bleeding: Management that was provided: QBL at delivery: 321 EBL at delivery: Diagnosis, Assessment Plan Diagnosis, Assessment Plan Assessment: nml progress Plan: routine care, discharge today Consultation(s): Consultation performed: anesthesia at 1540 RPT #:[id number] END OF REPORT 2021-01-07 07:52:00-00:[address] [facility] ([facility]) OB Postpart Progr Note REPORT#:[id number] REPORT STATUS: Signed DATE:01/07/21 TIME: 075 PATIENT: LIOR HUNT UNIT #: [id number] ROOM/BED: [place] [id number] : 91 AGE: 30 SEX: F ATTEND: Alexa Feldman MD ADM AUTHOR: Eric Feldman MD * ALL edits or amendments must be made on the [employer]plica document * Subjective Subjective Admission EGA: Weeks: 36 Days: 1 EGA at delivery (wks/days): 36 weeks (1 day) Objective Nursing Documentation Review Nursing Data: Post hemorrhage risk score: High Risk for Hemorrhage. General VS: Vital Signs: Date Time Temp Pulse Resp B/P B/P Pulse O2 O2 F low FiO2 Mean Ox Delivery Rate 01/07 0600 63 18 96 01/07 0505 80 96 01/07 0415 36.8 88 17 106/62 96 01/07 0320 76 18 96 01/07 0228 85 16 96 01/07 0103 87 17 97 01/07 0022 36.8 83 17 120/74 96 01/06 2340 78 18 97 01/06 2200 80 18 97 01/06 2100 87 18 96 01/06 2029 81 97 01/06 2027 88 94 01/07 2024 86 97 01/07 2020 89.0 01/07 2020 73 123/68 01/06 2019 83 97 01/06 2014 80 97 01/06 2009 83 97 01/06 2005 90.0 01/06 2005 76 122/66 01/07 2004 87 97 01/06 1959 79 96 01/06 1954 77 96 01/06 1950 91.0 01/06 1950 86 122/69 01/06 1949 87 98 01/06 1944 81 95 01/06 1939 85 97 01/06 1935 87.0 01/06 1935 80 121/60 01/06 1934 85 97 01/06 1929 88 97 01/06 1924 82 97 01/06 1920 81.0 01/06 1920 36.6 85 115/58 01/06 1919 82 97 01/06 1914 83 95 01/06 1909 75 97 01/06 1905 82.0 01/06 1905 78 117/61 01/06 1904 85 97 01/06 1859 82 98 01/06 1854 83 98 01/06 1850 83.0 01/06 1850 81 114/62 01/06 1849 80 97 01/06 1844 81 98 01/06 1839 87 96 01/06 1835 71.0 01/06 1835 84 96/52 01/06 1834 88 97 01/06 1829 87 97 01/06 1824 87 98 01/06 1819 64.0 01/06 1819 36.4 88 16 93/50 98 01/06 1541 84 99 01/06 1536 84 100 01/06 1531 91 100 01/06 1527 87 100 01/06 1522 97 100 01/06 1517 97.0 01/06 1517 86 129/76 100 01/06 1512 90 99 01/06 1507 93 99 01/06 1502 91 100 01/06 1457 90 99 01/06 1414 96 97 01/06 1410 91.0 01/06 1410 101 109/83 01/06 1409 100 97 01/06 1324 100 97 01/06 1320 90.0 01/06 1320 97 127/68 01/06 1319 98 97 01/06 1314 95 97 01/06 1250 103 97 01/06 1245 121 97 01/06 1244 105.0 01/06 1244 100 133/90 01/06 1240 98 96 01/06 1235 99 97 01/06 1230 114 97 01/06 1225 91 98 01/06 1220 98 96 01/06 1215 99 96 01/06 1210 106 97 01/06 1200 103.0 01/06 1200 36.7 103 18 144/76 PATIENT WEIGHT: Weight (lb): 312 Weight (oz): Weight (kg): 141.521 Physical Exam Neuro: Exam: alert, oriented x3, normal speech Abdomen: soft, no abnormal tenderness, no guardi ng, no rebound tenderness Incision site: No distress Uterus: non-tender Fundus: non-tender Lochia: normal Lacerations: Perineal laceration(s): None Episiotomy or laceration: none Vulva/Perineum: normal, no hematoma CVA tenderness: none Lower extremities: Edema: none Result Findings/Data: Laboratory Tests: 01/07 01/06 01/06 0400 1430 1430 Hematology WBC (4.5 - 11.0 x10 3/uL) 11.3 H RBC (3.54 - 5.02 x10 6/uL) 3.57 Hgb (11.0 - 15.0 g/dL) 9.3 L Hct (33.0 - 45.0 %) 29.0 L MCV (81.0 - 99.0 fL) 81.2 MCH (27.0 - 33.0 pg) 26.1 L MCHC (33.0 - 37.0 g/dL) 32.1 L RDW (11.5 - 14.5 %) 14.6 H Plt Count (150 - 400 x10 3/uL) 171 MPV (7.0 - 9.0 fL) 11.2 H Neut % (Auto) (56.0 - 77.0 %) 82.3 H Lymph % (Auto) (14.0 - 32.0 %) 12.6 L Ford % (Auto) (4.8 - 9.0 %) 4.2 L Eos % (Auto) (0.3 - 3.7 %) 0.2 L Baso % (Auto) (0.0 - 2.0 %) 0.3 Neut # (Auto) (2.0 - 7.6 x10 3/uL) 9.30 H Lymph # (Auto) (1.0 - 3.8 x10 3/uL) 1.42 Ford # (Auto) (0.1 - 0.8 x10 3/uL) 0.48 Eos # (Auto) (0.0 - 0.2 x10 3/uL) 0.02 Baso # (Auto) (0.0 - 0.2 x10 3/uL) 0.03 Abs Immat Gran (auto) (0.00 - 0.03 x10 3/uL) 0. 05 H Add Manual Diff NO Immature Gran % (0.0 - 2.0 %) 0.4 Nucleated RBC % (0 - 0 %) 0.0 Nucleated RBCs # (Man) (0.0 - 0.1 x10 3/uL) 0.0 0 Serology Hep Bs Antigen (NonReactive INDEX) NON REACTIVE HIV 1 2 Antibody Screen (Nonreactive) Nonreacti ve SARS-CoV-2 Ag (Rapid) (Negative) Negative 01/06 01/06 1300 1240 Chemistry Sodium (134 - 147 mEq/L) 138 Potassium (3.4 - 5.0 mEq/L) 3.9 Chloride (100 - 108 mEq/L) 108 Carbon Dioxide (21 - 33 mEq/l) 21 Anion Gap (0 - 20) 13 BUN (7 - 18 mg/dL) 7 Creatinine (0.6 - 1.3 mg/dL) 0.6 Glomerular Filtr Rate (110 - 120) 118.2 Glucose (70 - 110 mg/dL) 119 H Uric Acid (2.6 - 7.2 mg/dL) 5.2 Calcium (8.0 - 10.5 mg/dL) 8.3 Total Bilirubin (0.0 - 1.0 mg/dL) 0.20 AST (15 - 37 IUnit/L) 15 ALT (30 - 65 IUnit/L) 7 L Total Alk Phosphatase (20 - 125 IUnit/L) 98 Lactate Dehydrogenase (84 - 246 IUnits/L) 178 Total Protein (6.4 - 8.2 g/dL) 6.2 L Albumin (3.4 - 5.0 g/dL) 2.50 L Hematology WBC (4.5 - 11.0 x10 3/uL) 7.8 RBC (3.54 - 5.02 x10 6/uL) 3.75 Hgb (11.0 - 15.0 g/dL) 9.9 L Hct (33.0 - 45.0 %) 30.5 L MCV (81.0 - 99.0 fL) 81.3 MCH (27.0 - 33.0 pg) 26.4 L MCHC (33.0 - 37.0 g/dL) 32.5 L RDW (11.5 - 14.5 %) 14.7 H Plt Count (150 - 400 x10 3/uL) 164 MPV (7.0 - 9.0 fL) 10.3 H Neut % (Auto) (56.0 - 77.0 %) 70.5 Lymph % (Auto) (14.0 - 32.0 %) 20.6 Ford % (Auto) (4.8 - 9.0 %) 6.3 Eos % (Auto) (0.3 - 3.7 %) 1.3 Baso % (Auto) (0.0 - 2.0 %) 0.4 Neut # (Auto) (2.0 - 7.6 x10 3/uL) 5.52 Lymph # (Auto) (1.0 - 3.8 x10 3/uL) 1.61 Ford # (Auto) (0.1 - 0.8 x10 3/uL) 0.49 Eos # (Auto) (0.0 - 0.2 x10 3/uL) 0.10 Baso # (Auto) (0.0 - 0.2 x10 3/uL) 0.03 Abs Immat Gran (auto) (0.00 - 0.03 x10 3/uL) 0. 07 H Add Manual Diff NO Immature Gran % (0.0 - 2.0 %) 0.9 Nucleated RBC % (0 - 0 %) 0.0 Nucleated RBCs # (Man) (0.0 - 0.1 x10 3/uL) 0. 00 Urines Urine Color (YEL/STRAW) YELLOW Urine Appearance (CLEAR) CLEAR Urine pH (5.0 - 7.0) 6.0 Ur Specific [place] (1.005 - 1.030) 1.012 Urine Protein (NEGATIVE) NEGATIVE Urine Glucose (UA) (NEGATIVE) NEGATIVE Urine Ketones (NEGATIVE) NEGATIVE Urine Blood (NEGATIVE) NEGATIVE Urine Nitrite (NEGATIVE) NEGATIVE Urine Bilirubin (NEGATIVE) NEGATIVE Urine Urobilinogen (0.2 - 1.0 mg/dL) 0.2 Ur Leukocyte Esterase (NEGATIVE) NEGATIVE Urine RBC (0 - 3 RBC/HPF) 0-3 Urine WBC (0 - 3 WBC/HPF) 0-3 Ur Squamous Epith Cells (NONE SEEN /HPF) 0-5 Urine Bacteria (NONE SEEN /HPF) NONE SEEN Urine Mucus (NONE SEEN /LPF) TRACE Ur Random Creatinine (mg/dL) 68.4 U Random Total Protein (mg/dL) 17 Protein/Creatinin Ratio 0.25 Recent Impressions: ULTRASOUND - US BIOPHYS PROF 01/06 1352 Report Impression - Status: SIGNED Entered: 01/06/2021 1406 IMPRESSION: 1. Biophysical profile score of 8 out of 8. Impression By: [email or web address] - Silas viera M.D. Diagnosis, Assessment Plan Diagnosis, Assessment Plan Assessment: nml progress Plan: routine care Consultation(s): Consultation performed: anesthesia Plan discussed with: patient, nurse at 0754 RPT #:[id number] END OF REPORT 2021-01-07 07:37:00-00:[address] [facility] ([facility]) Pain Management Progress Note REPORT#:[id number] REPORT STATUS: Signed DATE:01/07/21 TIME: 0737 PATIENT: LIOR HUNT UNIT #: [id number] ROOM/BED: [place] [id number] : 91 AGE: 30 SEX: F ATTEND: Alexa Feldman MD ADM AUTHOR: Quyen Ramirez * ALL edits or amendments must be made on the [employer]/computer document * Objective General VS/I O: POD # 1 Chief Complaint: abdominal pain, s/p se ction No catheter in place Patient seen and examined Moving legs Current pain scale 1/10 Pain relieved by rest and pain medications Current patient activity level resting in bed No side effects noted. Assessment and plan: Pain is well controlled. Sh e has not been out of bed at this time. Continue pain management per primary team. Discontinue anesthesia service. Vital Signs Date Temp Pulse Resp B/P B/P Mean Pulse Ox FiO2 01/06-01/07 36.4-36.8 63-121 16-18 93-144/50-90 64.0-105.0 94-100 Last Documented: Result Date Time Pulse Ox 96 01/07 0600 Pulse 63 01/07 0600 Resp 18 01/07 0600 B/P 106/62 01/07 0415 Temp 36.8 01/07 0415 B/P Mean 89.0 01/07 2020 24 hour I O ending at 0700: 01/07 0700 01/06 1900 Intake Total 1156 Output Total 1000 Balance 156 Weight 3.660 Blood Loss 321 Quantification Method Intake, Other 1156 Output, Other 1000 Patient 141.521 kg Weight PATIENT WEIGHT: Weight (lb): 312 Weight (oz): Weight (kg): 141.521 at 0739 RPT #:[id number] END OF REPORT 2021-01-06 18:48:00-00:[address] [facility] ([facility]) DT Operative Note REPORT#:[id number] REPORT STATUS: Signed DATE:01/06/21 TIME: 1847 PATIENT: LIOR HUNT UNIT #: [id number] ROOM/BED: [place] [address] : 91 AGE: 30 SEX: F ATTEND: Alexa Feldman MD ADM AUTHOR: Eric Feldman MD * ALL edits or amendments must be made on the [employer]/computer document * Operative Report Operative Note Note: OPERATION DATE:01/06/21 START TIME: 1730 PROCEDURE: Repeat low transv erse section and bilateral tubal ligation. SURGEON: Eric Feldman MD WIRING MECHANIC:Tena Craig. LSA PREOPERATIVE DIAGNOSES: Single intrauterine preg malorie at 36+1 weeks with; 1. Previous C/S x 3 in labor. 2. Cholestasis of 3. Multiparity, family planning complete. POSTOPERATIVE DIAGNOSES: Single intrauterine pre gnancy at 36+1 weeks with; 1. Previous C/S x 3 in labor. 2. Cholestasis of 3. Multiparity, family planning complete. ANESTHESIA: Spinal duramorph QUANTITATIVE BLOOD LOSS: 321 mL INTRAVENOUS FLUIDS: 1.5 L. URINE OUTPUT: 20 mL. SPECIMEN REMOVED: Cord, placenta, and membranes, left and right tubes. COMPLICATIONS: None. FINDINGS: Viable male , weighing 3660 gm, Apgars 8 and 9, delivered atraumatically from cephalic presentation. Tubes and ovaries grossly within normal limits bilaterally. Left tube adherent to anterior uterine wall. DESCRIPTION OF PROCEDURE: The patient was taken to the operating room where combined spinal epidural was applied and found to be adequate. The patient was then prepped and draped in normal steril e fashion, placed in the dorsal supine position. Pfannenstiel skin incision was then made with a scalpel. Incision was then carried down to the und erlying layer of fascia with the scalpel. Fascia was then incised in midline and extended laterally bluntly. The superior edge of the fascial incision was grasped with [place] clamps, elevated, tented over the rectus muscle, dissected wit h the Garcia scissors. Rectus muscles in the midline. Peritoneum was identified and entered b luntly digitally, inferiorly and superiorly. Emmanuel retractor was then inserted. Lower uterine segment was identified and entered sharp ly with the second knife. Incision was extended laterally bluntly. was t hen delivered atraumatically. Nose and mouth suctioned with bulb suction. Cord was clam ped and cut. handed to the waiting nurses. Cord blo od obtained. Placenta was delivered with assistance. Uterus was then exteriorized and cleared of all clot and debris. Uterine incision was then repaired w ith monocryl suture in a running locked fashion x 2 layers. Good hemostasis noted. Tubes were then g rasped with clamps and the LigaSure to transect the fal lopian tubes bilateral starting from the fimbriated end up to the cornua with good hemostasis noted. After excision, this process was repeated on the contralateral side w ith good hemostasis noted. Gutters and cul-de-sac were then cleared of all clot and kirill ris. The uterus was then returned to the abdomen. Interceed was placed an terior to the lower segment incision. Emmanuel retractor was then yana rosalva. The rectus muscles and peritoneum complex were then reapproxim ated at the midline with mattress stitch technique. Fascia was approximated with 0 Vicryl in a running nonlocked fashion. Skin was closed with 3-0 Monocryl subcuticular closure. T he patient tolerated the procedure well. Sponge, lap, needle, and instrument count were correct x 2. The patient was returned to the recovery room awake and in a stable condition. at 1855 RPT #:[id number] END OF REPORT 2021-01-06 18:44:00-00:[address] [facility] ([facility]) OB Delivery Note REPORT#:[id number] REPORT STATUS: Signed DATE:01/06/21 TIME: 184 PATIENT: LIOR HUNT UNIT #: [id number] ROOM/BED: [place] [address] : 91 AGE: 30 SEX: F ATTEND: Alexa Feldman MD ADM AUTHOR: Eric Feldman MD * ALL edits or amendments must be made on the el [place]/computer document * OB Delivery Pre-delivery GBS status: GBS status: unknown evaluation at delivery: NRP certified pe rsonnel Admission EGA: Weeks: 36 Days: 1 EGA at delivery (wks/days): 36 weeks (1 day) Baby A Information Baby A information Delivery date: 01/06/21 Delivery time: 1734 status: live born Wt of baby (grams): 3660 Gender: male 1 minute: 8 5 minutes: 9 Presentation: vertex ABG details Baby A Cord blood gases: not collected Nuchal cord Baby A Nuchal cord: no Delivery section indication: previous Priority: indicated (add on) : : declined Antibiotic prior to incision: 1 dose )(SCDs applied activated: Yes Uterine incision: low transverse Uterine scar: intact Consent: indication discussed, questions answer ed, pt consent to op delivery Mother's condition: mother stable 's condition: infant stable in room Blood Loss/Details Blood loss at delivery: <1K: no sx hypovol=no he m, no more than expected QBL at delivery (ml's): 321 at 1847 RPT #:[id number] END OF REPORT 2021-01-06 17:19:00-00:[address] [facility] ([facility]) OB Admission / H P REPORT#:[id number] REPORT STATUS: Signed DATE:01/06/21 TIME: 1719 PATIENT: LIOR HUNT UNIT #: [id number] ROOM/BED: [place] [address] : 91 AGE: 30 SEX: F ATTEND: Alexa Feldman MD ADM AUTHOR: Eric Feldman MD * ALL edits or amendments must be made on the [employer]/computer document * OB History Current : Admission EGA (weeks) 36 Admission EGA (days) 1 Past History Additional Medical History: not pertinent Past Surgical History: Reports: Appendectomy, , Tonsillectomy. Additional Surgical History: adenoidectomy Additional Family History not pertinent Drug Use Denies recreational drugs Smoking status: Smoking status for patients 13 years old or old er: Former Smoker Other Social History Local resident, [place] Allergies: Coded Allergies: codeine (BREAKS OUT 01/06/21) Objective General VS: Last Documented: Result Date Time Pulse Ox 99 01/06 1541 Pulse 84 01/06 1541 B/P Mean 97.0 01/06 1517 B/P 129/76 01/06 1517 Temp 36.7 01/06 1200 Resp 18 01/06 1200 Vital Signs Date Temp Pulse Resp B/P B/P Mean Pulse Ox FiO2 01/06 36.7 84-121 18 109-144/68-90 90.0-105.0 9 6-100 PATIENT WEIGHT: Weight (lb): 312 Weight (oz): Weight (kg): 141.521 Physical Exam HEENT: normocephalic w/o injury Lungs: unlabored breathing Breasts: deferred Neuro: Exam: alert, oriented x3, normal speech Abdomen: gravid, soft, no abnormal tenderness, n o guarding, no rebound tenderness Uterine activity: Monitor: toco Pelvic exam: Pelvis clinically adequate: yes, inlet appears appropriate, pubic bone config appropr, no midpelvic contraction Vulvar lesions: none, no evidence herpetic les, no evidence of other STD Vagina: normal, non-septated, w/o apparent lesi ons Cervical/ exam: Dilatation (cm): 0 - closed Membranes: Membranes: Intact Lower extremities: Edema: trace Baby A: Baby A baseline: 140 bpm Baby A variability: moderate 6-25 bpm Baby A accelerations: 15 X 15 Baby A decelerations: none Baby A FHR category: category 1 Diagnosis, Assessment Plan Diagnosis, Assessment Plan Free Text A P: 30 yr old [id number] LMP: unk EDC: 02/02/21 @ 36+1 we eks GA dated by sono (c/w 28 +2 week sono on 11/05/20) pre senting with complaints of abdominal pain consistent with contractions. Patient r eports painful contractions which was noted on toco Q4 mins. No other acute complaints at this time. Denies nausea, vomiting, abd pain, vaginal bleeding or LOF. +FM PNC complicated by: Previous C/S x 3 for repeat c/s at term. Fam Hx of WPW Obesity Class 3 Hx of pre-eclampsia - LDA h/o Pre-term delivery - on 17OHP. Syncopal episode - s/p ED visit- w/u Neg cHTN: - No meds for now. Multiparity Desires BTL- Signed papers- 10/25/20 Late transfer Cholestasis of Polyhydramnios. Delivery plan: >/= 37+ weeks OBhx: SAB x 1, C/S x 3, CD for TIUP GynHx: Denies MHx: Denies SurgHx: C/S x 3, Tonsils, adenoids, Appendectomy , right arm metal. Family Hx: DM, HTN, WPW. SHx: Denies Alcohol, Cigarette and illicit drug Use Meds: PNV Allergy: Codeine- Hives Vitals: Stable Gen: NAD HEENT: Normocephalic. CVS: S1S2 Lung: clear b/l Abd: NT, ND Ext: No calf tenderness, No DVT signs, Trace Jesse ma Pelvic: Normal external fema le genitalia, No lesions or masses in vulva, vagina or cervix. Labs: T S: O pos Antibody: Neg H/H: 12.7/38.8 HIV: Neg HbsAg: Neg Rubella: Immune RPR: NR GC/Chlam: Neg Pap: NFM GCT: 119 mg/dl Imp: IUP @ 36+1 Weeks GA with; 1. Previous C/S x 3 in labor. 2. Cholestasis of 3. Multiparity, family planning complete. Plan: Admit to labor and delivery NPO Ancef 3g Anesthesia Labs at 1838 RPT #:[id number] END OF REPORT 2021-01-06 12:23:00-00:00 [facility]L [facility]) OB Medical Screening Exam REPORT#:[id number] REPORT STATUS: Signed DATE:01/06/21 TIME: 1223 PATIENT: LIOR HUNT UNIT #: [id number] ROOM/BED: [place] [address] : [birth year] AGE: 30 SEX: F ATTEND: Roxana Valadez MD ADM AUTHOR: Roxana Bender MD * ALL edits or amendments must be made on the [facility] document * Medical Screening Exam Provider Attestation Attestation: The QMP MSE reviewed. Provider at bedside at 1211 Comments: 30 y/o (one twin delivery) IUP 36 1/7 pre sents due to contractions, nausea and back pain. at 1329 RPT #:[id number] END OF REPORT 2021-01-06 12:23:00-00:00 [facility]L [facility] ([facility]) KIMANI Evaluation Note REPORT#:[id number] REPORT STATUS: Signed DATE:01/06/21 TIME: 1223 PATIENT: LIOR HUNT UNIT #: [id number] ROOM/BED: [place] [address] : 91 AGE: 30 SEX: F ATTEND: Alexa Feldman MD ADM AUTHOR: Roxana Bender MD * ALL edits or amendments must be made on the Post-A-Vox/Aplica document * KIMANI History Chief complaint: uterine contractions, nausea HPI: 30 y/o (one twin delivery) IUP 36 1/7 pre sents due to contractions, nausea and back pain. She has a history of juvenal stasis, preeclampsia and polyhydramnios in this . She refers goo d movements and denies any gush of vaginal fluids, vaginal bleeding or recent exposure to COVID, fever or SOB. Verbal consent obtained from patient to discuss history, lab results, treatment, plan and any other pertinent information in fron t of patient's companions. history: : 5 Term: 1 : 2 Abortus: 1 Living children: 4 (one twin delivery) Current : EDC: 02/02/21 EGA (weeks/days): 36 weeks Conditions of : pre-eclampsia, Cholesta tis polyhydramnios Past medical history: Morbid obesity Past surgical history: (x3), tonsils/a denoids, wisdom teeth Social history: no alcohol use, no tobacco use, no drug use Family history Relation not specified for: Family History: Diabetes FH: hypertension Medications: Home Medications: Medication Dose/Rte/Freq Days Qty Entered Last Max Daily Dose Reviewed PNV WITH 1 CAP PO DAILY 08/04/16 01/06/21 CA/IRON/FA/DHA 0946 1155 (PRENATE ESSENTIAL) Strength: 1 EACH CAP Allergies Coded Allergies: codeine (BREAKS OUT 01/06/21) Review of Systems Additional notes: Constitutional: Denies: chills, fatigue, fever, generalized weak ness, lethargy, malaise. Respiratory: Denies: productive cough (sputum), SOB. GI: Denies: abdominal pain, constipation, diarrhea, nausea, vomiting. : Refers: contractions Denies: urgency, vaginal bleeding. Neuro: Denies: headache Objective General VS: Last Documented: Result Date Time Pulse Ox 97 01/06 1250 Pulse 103 01/06 1250 B/P Mean 105.0 01/06 1244 B/P 133/90 01/06 1244 Temp 98.0 01/06 1200 Resp 18 01/06 1200 Vital Signs Date Temp Pulse Resp B/P B/P Mean Pulse Ox FiO2 01/06 98.0 91-121 18 133-144/76-90 103.0-105.0 96-98 PATIENT WEIGHT: Weight (lb): 312 Weight (oz): Weight (kg): 141.521 Physical Exam Additional comments: Gen: AAOx3 Lungs: normal respiratory effort Neuro: Exam: alert, oriented x3 Abdomen: gravid, soft Uterine activity: Monitor: toco Frequency (description): irregular Frequency (minutes): PARKING TECHNICIAN: Normal exteral genitalia Cervical/ exam: Dilatation (cm): closed Effacement (%): thick station: high FHR evaluation: FHR category: category I Diagnosis, Assessment Plan Diagnosis, Assessment Plan Problem List/A P: 1. 36 weeks gestation of Free Text A P: initial exam 1211 Patient presents due to contractions, nausea and back pain Re-evaluation 1315 patient now complaining of decreased movem ents, will order BPP 1413 No cervical change but she continues to have reg ular contractions. 30 y/o (one twin delivery) IUP 36 02/21 pre sented due to contractions, nausea and back pain. Discus sed case with Dr. Feldman, he would like to admit the patient for repeat CS du e to uterine contractions and history of 3 prior CS. He agreed to assume care of patient fro m this point on. Will admit patient to L D. Patient oriented on findings and plan. Assessment/Impression: Regular contractions Prio r CS Cholestasis of at 1506 RPT #:[id number] END OF REPORT 2020-12-31 17:48:00-00:00 [facility]ACL [facility]) KIMANI Evaluation Note REPORT#:[id number] REPORT STATUS: Signed DATE:12/31/20 TIME: 1748 PATIENT: LIOR HUNT UNIT #: [id number] ROOM/BED: [place] [address] : 91 AGE: 30 SEX: F ATTEND: Joseph Oro DO ADM DT: AUTHOR: Sagrario Oro DO * ALL edits or amendments must be made on the el SOL ELIXIRSronic/computer document * See Addendum KIMANI History Nursing Documentation Review Nursing data: The data set between the solid lines has been im ported from nursing documentation. Any exceptions have been noted be low under Provider comments. Current data Steroids prior to arrival: ROM date: ROM time: EDC date: Gestational age (labor triage): Post hemorrhage risk score: High Risk for Hemorrhage. Prior history : Para: Term: : Abortions spontaneous: Abortions induced: Living children: Ectopic: Stillbirths: Live births: deaths: Number of previous C/S: Reported maternal labs/data Blood type: Rh type: Rubella: Hepatitis B: HIV exposure test: Unknown VDRL: Group B beta strep: Rho(D) immune globulin this preg: Monitor mode - UA: Feeding preference: Provider comments on imported nursing data: [] Chief complaint: headache HPI: 30 y/o EC 02/02 at 35 week 2 da y c/o ABRAHAM at the office of [facility], did not take OTC medication. C/o double vision and spots . Irreg cxn, no leaking or bleeding, and decreased FM (BPP 8/8 today) She c /o SOB w laying down. history: : 5 Term: 1 : 2 Abortus: 1 Living children: 4 Complications (prev preg): multiple gestation, obesity, preeclampsia Previous : unknown uterine incision Number of prev : 3 Current : EDC: 02/02/21 EGA (weeks/days): 35 weeks Conditions of : previous uterine incisi on, gestational HTN, polyhydramnios, cholestasis Labs: Blood type: unknown Past medical history: CF carrier, obesity Past surgical history: , appendectomy, cholecystectomy, tonsils/ adenoids, right arm sx from break Social history: employed, single, no alcohol use , no tobacco use, no drug use Family history Relation not specified for: Family History: Diabetes FH: hypertension Medications: Home Medications: Medication Dose/Rte/Freq Days Qty Entered Last Max Daily Dose Reviewed PNV WITH 1 CAP PO DAILY 08/04/16 CA/IRON/FA/DHA 0946 (PRENATE ESSENTIAL) Strength: 1 EACH CAP Current Hospital Medications: Central Nervous System Agents Sig/Avtar Start time Last Medication Dose Route Stop Time Status Admin Acetaminophen 1,000 MG ONCE ONE 12/31 1714 DC 1 03/02 (TYLENOL EXTRA PO 01/01 1716 1733 STRENGTH) Allergies Coded Allergies: codeine (BREAKS OUT 09/20/19) Review of Systems Constitutional: Denies: fever. ENT: Denies: sore throat. Respiratory: Denies: non productive cough. GI: Denies: nausea, vomiting. : Reports: . Denies: vaginal bleeding. Neuro: headache, vision change. Objective General VS: Last Documented: Result Date Time B/P Mean 90.0 12/31 1656 B/P 125/67 12/31 1656 Pulse 98 12/31 1656 Pulse Ox 96 12/31 1655 Temp 98.4 12/31 1610 Resp 18 12/31 1610 Vital Signs Date Temp Pulse Resp B/P B/P Mean Pulse Ox FiO2 12/31 98.4 88-104 18 125-136/67-74 90.0-97.0 96 -98 PATIENT WEIGHT: Weight (lb): Weight (oz): Weight (kg): Notes: 136/74 135/71 140/72 183/107 while laying on that arm. Physical Exam HEENT: normocephalic w/o injury, no scleral icte anhtony Lungs: unlabored breathing Neuro: Exam: alert, oriented x3, normal speech, normal gait Abdomen: gravid, soft, no abnormal tenderness, n o guarding, no rebound tenderness Uterine activity: Monitor: toco Frequency (description): none FHR evaluation: Baseline: 140 bpm Variability: moderate 6-25 bpm Accelerations: 15 X 15 Decelerations: none FHR category: category 1 Membranes: Membranes: Intact Lower extremities: Edema: trace Diagnosis, Assessment Plan Diagnosis, Assessment Plan Free Text A P: 30 y/o P1214 at 35 w 2 day with ABRAHAM Multiple medical issues 3 prior c section BMI Poly at 34 cm cholestasis GHTN BMz labs urine will f/u tylenol at 1757 Addendum 1: 12/31/201924 by Sagrario Oro DO CMP WNL HEMOGLOBIN 9.8 PLATELET 158 UA NEG 0.27 RI CR RATIO BPP DONE AT DR. Hedrick OFFICE M 09/22 WITH DASH 34 CM AFTER THE 183/107 SHE WAS LAYING ON THE ARM WHIL E CUFF WENT OFF, BP 143/63 127/58 118/77 108/57 107/61 115/63 D/W DR. LANGE, AND OK TO D/C AFTER BMZ GIVEN AND PT CAN GET SECOND TOMORROW. PRECAUTIONS GIVEN. FU DR. THAKKAR THIS WEEK. at 1928 RPT #:[id number] END OF REPORT 2020-12-31 17:09:00-00:00 [facility]L [facility] ([facility]) OB Medical Screening Exam REPORT#:[id number] REPORT STATUS: Signed DATE:12/31/20 TIME: 1708 PATIENT: LIOR HUNT UNIT #: [id number] ROOM/BED: [place] [address] : 91 AGE: 30 SEX: F ATTEND: Joseph Oro DO ADM DT: AUTHOR: Sagrario Oro DO * ALL edits or amendments must be made on the el ectronic/computer document * Medical Screening Exam Nursing Documentation Review Nursing data: The data set between the solid lines has been im ported from nursing documentation. Any exceptions have been noted be low under Provider comments. : Para: Term: : Abortions spontaneous: Abortions induced: Living children: EDC: Gestational age (labor triage): KIMANI monitor fetus and uterus: Part A The following exist: Medical screening part A score: Medical screening part A recommendation: Part B Headaches: Vomiting: Visual disturbances: Epigastric pain: Proteinuria: Edema: Medical screening part B score: Medical screening part B recommendation: Part C Vaginal exam deferred: Other reason MSE vaginal exam deferred: Dilation: Cervical effacement: Station: Presentation: Contraction pattern: Contraction strength: Membranes: heart rate: Duration of previous labor(s): Medical screening part C score: Medical screening part C recommendation: RN MSE signature: Provider comments on imported nursing data: [] Provider Attestation Attestation: The QMP MSE reviewed. Comments: Pt triaged at 1710. at 1710 RPT #:[id number] END OF REPORT 2020-12-19 21:42:00-00:00 [facility]L [facility] ([facility]) KIMANI Evaluation Note REPORT#:[id number] REPORT STATUS: Signed DATE:12/19/20 TIME: 2141 PATIENT: LIOR HUNT UNIT #: [id number] ROOM/BED: : 91 AGE: 30 SEX: F ATTEND: Chio Cutler MD ADM AUTHOR: Dung Cutler MD * ALL edits or amendments must be made on the el ectronic/computer document * KIMANI History Nursing Documentation Review Nursing data: The data set between the solid lines has been im ported from nursing documentation. Any exceptions have been noted be low under Provider comments. Current data Steroids prior to arrival: ROM date: ROM time: EDC date: Gestational age (labor triage): Post hemorrhage risk score: Prior history : Para: Term: : Abortions spontaneous: Abortions induced: Living children: Ectopic: Stillbirths: Live births: deaths: Number of previous C/S: Reported maternal labs/data Blood type: Rh type: Rubella: Hepatitis B: HIV exposure test: VDRL: Group B beta strep: Rho(D) immune globulin this preg: Monitor mode - UA: Feeding preference: Provider comments on imported nursing data: [] Chief complaint: CRAMPING PELVIC PAIN HPI: , CS X3, 33 4/7 WEEKS AOG, [place]-, FOLLOWING DR FELDMAN. COMPLAINS OF CRAMPING PELVIC PAIN AND HEAVINESS SINCE ABOUT 4 PM. 09/24. ADMITS TO MOVEMNTS, NO LOSS OF FLUID, NO V AGINAL BLEEIDNG NOR DYSURIA. UNSURE OF CONTRCTIONS. S/P COVID VACCINE. history: : 5 Term: 1 : 2 Abortus: 1 Living children: 4 Complications (prev preg): hypertension Previous : unknown uterine incision Number of prev : 3 Indication for prior : arrest dilatatio n/descent Comments: G1-33 WEEKS, FAILURE TO PROGRESS G2- TWINS, SEVERE PREECLAMPSIA- REPEAT G3-SAB G4- 38 WEEKS REPEAT. Current : Comments: FOLLOWING DR VAZQUEZ- HISTORY OF SPEEDY [place]ALL[place]. PIH POLYHYDRAMNIOS Past medical history: denies PMH Past surgical history: , appendectomy, cholecystectomy, tonsils/ adenoids, RIGHT ARM FRACTURE SURGERY Social history: no alcohol use, no tobacco use, no drug use Family history Relation not specified for: Family History: Diabetes FH: hypertension Allergies Coded Allergies: codeine (BREAKS OUT 09/20/19) Review of Systems Constitutional: Denies: chills, fatigue, fever, generalized weak ness, malaise. Eyes: Denies: visual loss/blurred, photophobia. Respiratory: Denies: BUSTILLO (dyspnea on exertion), SOB. Cardiovascular: Denies: chest pain, BUSTILLO (dyspnea on exer tion), edema, orthopnea, palpitations, parox nocturnal dyspnea. GI: Denies: constipation, diarrhea, nausea, vomiting . : Denies: dysuria, frequency, urgency, vaginal ble eding, vaginal discharge. Musculoskeletal: Denies: extremity pain, extremity swelling. Neuro: Denies: confusion, dizziness, headache, lighthea ded, syncope, vision change. Objective General VS: Last Documented: Result Date Time B/P Mean 92.0 12/19 2058 B/P 127/70 12/19 2058 Pulse 94 12/19 2058 Vital Signs Date Temp Pulse Resp B/P B/P Mean Pulse Ox FiO2 12/19 94-103 127-140/70-83 92.0-105.0 PATIENT WEIGHT: Weight (lb): Weight (oz): Weight (kg): Physical Exam HEENT: no scleral icterus Lungs: unlabored breathing Neuro: Exam: alert, oriented x3, normal speech, normal gait Abdomen: gravid, soft, no abnormal tenderness, n o guarding, no rebound tenderness Musculoskeletal: no muscle spasm Genitourinary: no bladder distention Uterine activity: Monitor: toco Frequency (description): irritability, irregula r Duration (seconds): 80 Pelvic exam: Pelvis clinically adequate: yes Cervical/ exam: Dilatation (cm): 0 - closed Effacement (%): 0 station: - 5 presentation: unable to assess FHR evaluation: Baseline: 120 bpm Variability: moderate 6-25 bpm Accelerations: 15 X 15 Decelerations: none FHR category: category 1 Membranes: Membranes: Intact Lower extremities: Edema: trace Results Findings/Data: Laboratory Tests: 12/19 2100 Miscellaneous Fibronectin (NEGATIVE) NEGATIVE Urines Urine Color (YEL/STRAW) YELLOW Urine Appearance (CLEAR) SL CLOUDY Urine pH (5.0 - 7.0) 6.0 Ur Specific [place] (1.005 - 1.030) 1.023 Urine Protein (NEGATIVE) NEGATIVE Urine Glucose (UA) (NEGATIVE) NEGATIVE Urine Ketones (NEGATIVE) NEGATIVE Urine Blood (NEGATIVE) NEGATIVE Urine Nitrite (NEGATIVE) NEGATIVE Urine Bilirubin (NEGATIVE) NEGATIVE Urine Urobilinogen (0.2 - 1.0 mg/dL) 0.2 Ur Leukocyte Esterase (NEGATIVE) NEGATIVE Urine RBC (0 - 3 RBC/HPF) 0-3 Urine WBC (0 - 3 WBC/HPF) 0-3 Ur Squamous Epith Cells (NONE SEEN /HPF) 0-5 Urine Bacteria (NONE SEEN /HPF) NONE SEEN Urine Mucus (NONE SEEN /LPF) TRACE Results: labs reviewed, vital signs stable Diagnosis, Assessment Plan Diagnosis, Assessment Plan Assessment/Impression: reassuring status, POLYHYDRAMNIOS, ARCELIA THOMAS CONTRACTIONS @ 33 4/7 WEEKS AOG Comments: PATIENT WAS HYDRATED AND WAS GIVEN PROCARDIA. ST ADOL WAS ALSO GIVEN. CONTRACTIONS HAD SPACED OUT. ALL LABS AND FINDINGS DISCUSSED WITH DR JAMES Pierson AND HE WOULD LIKE TO SEND PATIENT HOME WITH MOVEMENTS AND LABOR PREC AUTIONS. FOLLOW-UP WIH HIM IN AM. PATIENT EXPRESSED UNDERSTANDING. at 0517 RPT #:[id number] END OF REPORT 2019-09-22 12:59:00-00:00 [facility] ([facility]) OB Disch REPORT#:[id number] REPORT STATUS: Signed DATE:09/22/19 TIME: 1259 PATIENT: LIOR HUNT UNIT #: [id number] ROOM/BED: [facility] : 91 AGE: 28 SEX: F ATTEND: Alexa Feldman MD ADM AUTHOR: Eric Feldman MD * ALL edits or amendments must be made on the el ectronic/computer document * Subjective Subjective Admission EGA (wks/days): 38 weeks EGA at delivery (wks/days): 38 weeks Status/day: post operative (day 2) Objective General VS: Vital Signs Date Temp Pulse Resp B/P B/P Mean Pulse Ox FiO2 09/20-09/21 36.6-36.8 82-101 16-18 98-126/55-65 Last Documented: Result Date Time B/P 121/57 09/21 717 Temp 36.7 09/21 717 Pulse 101 09/21 0618 Resp 17 09/21 717 Pulse Ox 97 09/19 1315 B/P Mean 78.0 09/19 1051 Patient Weight Weight (lb): 297 Weight (oz): Weight (kg): 134.717 Physical Exam Lungs: clear to auscultation Neuro: Exam: alert, oriented x3, normal speech Abdomen: post gravid, soft, no abnormal tenderne ss, no guarding, no rebound tenderness Incision site: Wound vac Uterus: non-tender Fundus: non-tender Lochia: normal Episiotomy or laceration: none Vulva/Perineum: normal Lower extremities: Edema: trace Results Findings/Data: Laboratory Tests: 09/20 0500 Chemistry Sodium (134 - 147 mEq/L) 138 Potassium (3.4 - 5.0 mEq/L) 3.8 Chloride (100 - 108 mEq/L) 108 Carbon Dioxide (21 - 33 mEq/L) 23 Anion Gap (0 - 20) 11 BUN (7 - 18 mg/dL) 9 Creatinine (0.6 - 1.3 mg/dL) 0.5 L Glomerular Filtr Rate (110 - 120) 148.0 H Glucose (70 - 110 mg/dL) 72 Calcium (8.0 - 10.5 mg/dL) 8.1 Total Bilirubin (<1.5 MG/DL) 0.2 AST (15 - 37 IUnit/L) 19 ALT (15 - 65 IUnit/L) 14 L Total Alk Phosphatase (20 - 125 IUnit/L) 114 Total Protein (6.4 - 8.2 g/dL) 5.3 L Albumin (3.4 - 5.0 g/dL) 1.80 L Hematology WBC (4.5 - 11.0 x10 3/uL) 6.40 RBC (3.54 - 5.02 x10 6/uL) 3.38 L Hgb (11.0 - 15.0 g/dL) 9.3 L Hct (33.0 - 45.0 %) 29.6 L MCV (81.0 - 99.0 fL) 87.6 MCH (27.0 - 33.0 pg) 27.5 MCHC (33.0 - 37.0 g/dL) 31.4 L RDW (11.5 - 14.5 %) 14.8 H Plt Count (150 - 400 x10 3/uL) 116 L MPV (7.0 - 9.0 fL) 11.1 H Neut % (Auto) (56.0 - 77.0 %) 63.7 Lymph % (Auto) (14.0 - 32.0 %) 26.1 Ford % (Auto) (4.8 - 9.0 %) 7.5 Eos % (Auto) (0.3 - 3.7 %) 1.9 Baso % (Auto) (0.0 - 2.0 %) 0.3 Neut # (Auto) (2.0 - 7.6 x10 3/uL) 4.08 Lymph # (Auto) (1.0 - 3.8 x10 3/uL) 1.67 Ford # (Auto) (0.1 - 0.8 x10 3/uL) 0.48 Eos # (Auto) (0.0 - 0.2 x10 3/uL) 0.12 Baso # (Auto) (0.0 - 0.2 x10 3/uL) 0.02 Abs Immat Gran (auto) (0.00 - 0.03 x10 3/uL) 0 .03 Add Manual Diff NO Immature Gran % (0.0 - 2.0 %) 0.5 Nucleated RBC % (0 - 0 %) 0.0 Nucleated RBCs # (Man) (0.0 - 0.1 x10 3/uL) 0.0 0 Discharge Summary Discharge Summary Date of admission: Date of admission: 09/20/19 Hospital course: repeat nory badillo admit, epidural anesthesia, spinal anesthesia, nml postop/postpart care Baby A: status: live born Gender: male 1 minute: 8 5 minutes: 8 Plan: routine care, circumcision toda y, discharge today Instructions: routine instr sheet given, instr a nd warnings rev'd, specific instr as noted Diet: regular Activity and restrictions: up ad dewayne, may shower , pelvic rest, no intercourse for 6 wks, no driving Contraception discussed: abstinence for 4-6 week s, will discuss at PP visit Discharge meds: Continue taking these medications: PNV WITH CA/IRON/FA/DHA (PRENATE ESSENTIAL) 1 EA CH CAP 1 CAPSULE ORAL DAILY. Start taking the following new medications: IBUPROFEN (MOTRIN) 800 MG TAB 800 MILLIGRAM ORAL EVERY 6 HOURS NEEDED. as needed for ABDOMINAL CRAMPS Qty = 45 No Refills traMADol (ULTRAM) 50 MG TAB 50 MILLIGRAM ORAL EVERY 6 HOURS NEEDED. as n eeded for ABDOMINAL CRAMPS Qty = 15 No Refills Instructions: FOR ACUTE PAIN Prescriptions: on chart Consultation(s): Consultation performed: anesthesia Discharge condition: stable Discharge to: home Follow up in: 1 week (wound vac removal) at 1302 RPT #:[id number] END OF REPORT 2019-09-22 12:54:00-00:[address] [facility] ([facility]) OB Postpart Progr Note REPORT#:[id number] REPORT STATUS: Signed DATE:09/22/19 TIME: 1254 PATIENT: LIOR HUNT UNIT #: [id number] ROOM/BED: [place] [address] : 91 AGE: 28 SEX: F ATTEND: Alexa Feldman MD ADM AUTHOR: Eric Feldman MD * ALL edits or amendments must be made on the Post-A-Vox/computer document * Subjective Subjective EGA weeks/days: 38 weeks Status/Day: post , post operative (day 2) Objective General VS: Vital Signs: Date Time Temp Pulse Resp B/P B/P Pulse O2 O2 F low FiO2 Mean Ox Delivery Rate 09/21 0618 36.7 101 17 121/57 09/20 2315 36.6 93 17 98/65 09/207 36.8 95 18 126/64 09/20 1920 36.8 90 17 111/55 08/ 1515 36.7 82 16 104/58 Patient Weight Weight (lb): 297 Weight (oz): Weight (kg): 134.717 Physical Exam Lungs: No distress Neuro: Exam: alert, oriented x3, normal speech Abdomen: soft, no abnormal tenderness, no guardi ng, no rebound tenderness Incision site: Wound vac in place. Uterus: non-tender Fundus: non-tender Lochia: normal Lacerations: Perineal laceration(s): None Episiotomy or laceration: none Vulva/Perineum: normal, no hematoma CVA tenderness: none Lower extremities: Edema: trace Diagnosis, Assessment Plan Diagnosis, Assessment Plan Assessment: nml progress Plan: routine care, circumcision toda y, discharge today Consultation(s): Consultation performed: anesthesia Plan discussed with: patient, nurse at 1258 RPT #:[id number] END OF REPORT 2019-09-21 12:43:00-00:[address] [facility] ([facility]) OB Postpart Progr Note REPORT#:[id number] REPORT STATUS: Signed DATE:09/21/19 TIME: 1243 PATIENT: LIOR HUNT UNIT #: [id number] ROOM/BED: [place] [address] : 91 AGE: 28 SEX: F ATTEND: Alexa Feldman MD ADM AUTHOR: Eric Feldman MD * ALL edits or amendments must be made on the Post-A-Vox/computer document * Subjective Subjective EGA weeks/days: 38 weeks Status/Day: post , post operative (day 1) Objective General VS: Vital Signs: Date Time Temp Pulse Resp B/P B/P Pulse O2 O2 F low FiO2 Mean Ox Delivery Rate 09/20 0710 36.8 86 18 110/54 08/ 0445 36.9 76 18 100/56 08/05 2045 37.0 94 18 109/55 08/05 1515 36.7 83 16 105/51 08/05 1315 36.7 93 22 101/52 97 Patient Weight Weight (lb): 297 Weight (oz): Weight (kg): 134.717 Physical Exam Lungs: No distress Neuro: Exam: alert, oriented x3, normal speech Abdomen: soft, no abnormal tenderness, no guardi ng, no rebound tenderness Incision site: Wound vac in place. Uterus: non-tender Fundus: non-tender Lochia: normal Lacerations: Perineal laceration(s): None Episiotomy or laceration: none Vulva/Perineum: normal, no hematoma CVA tenderness: none Lower extremities: Edema: trace Result Findings/Data: Laboratory Tests: 09/20 0500 Chemistry Sodium (134 - 147 mEq/L) 138 Potassium (3.4 - 5.0 mEq/L) 3.8 Chloride (100 - 108 mEq/L) 108 Carbon Dioxide (21 - 33 mEq/L) 23 Anion Gap (0 - 20) 11 BUN (7 - 18 mg/dL) 9 Creatinine (0.6 - 1.3 mg/dL) 0.5 L Glomerular Filtr Rate (110 - 120) 148.0 H Glucose (70 - 110 mg/dL) 72 Calcium (8.0 - 10.5 mg/dL) 8.1 Total Bilirubin (<1.5 MG/DL) 0.2 AST (15 - 37 IUnit/L) 19 ALT (15 - 65 IUnit/L) 14 L Total Alk Phosphatase (20 - 125 IUnit/L) 114 Total Protein (6.4 - 8.2 g/dL) 5.3 L Albumin (3.4 - 5.0 g/dL) 1.80 L Hematology WBC (4.5 - 11.0 x10 3/uL) 6.40 RBC (3.54 - 5.02 x10 6/uL) 3.38 L Hgb (11.0 - 15.0 g/dL) 9.3 L Hct (33.0 - 45.0 %) 29.6 L MCV (81.0 - 99.0 fL) 87.6 MCH (27.0 - 33.0 pg) 27.5 MCHC (33.0 - 37.0 g/dL) 31.4 L RDW (11.5 - 14.5 %) 14.8 H Plt Count (150 - 400 x10 3/uL) 116 L MPV (7.0 - 9.0 fL) 11.1 H Neut % (Auto) (56.0 - 77.0 %) 63.7 Lymph % (Auto) (14.0 - 32.0 %) 26.1 Ford % (Auto) (4.8 - 9.0 %) 7.5 Eos % (Auto) (0.3 - 3.7 %) 1.9 Baso % (Auto) (0.0 - 2.0 %) 0.3 Neut # (Auto) (2.0 - 7.6 x10 3/uL) 4.08 Lymph # (Auto) (1.0 - 3.8 x10 3/uL) 1.67 Ford # (Auto) (0.1 - 0.8 x10 3/uL) 0.48 Eos # (Auto) (0.0 - 0.2 x10 3/uL) 0.12 Baso # (Auto) (0.0 - 0.2 x10 3/uL) 0.02 Abs Immat Gran (auto) (0.00 - 0.03 x10 3/uL) 0. 03 Add Manual Diff NO Immature Gran % (0.0 - 2.0 %) 0.5 Nucleated RBC % (0 - 0 %) 0.0 Nucleated RBCs # (Man) (0.0 - 0.1 x10 3/uL) 0. 00 Diagnosis, Assessment Plan Diagnosis, Assessment Plan Assessment: nml progress Plan: routine care, discharge tomorro w Consultation(s): Consultation performed: anesthesia Plan discussed with: patient, nurse at 1245 RPT #:[id number] END OF REPORT 2019-09-21 05:28:00-00:[address] [facility] ([facility]) Pain Management Progress Note REPORT#:[id number] REPORT STATUS: Signed DATE:09/21/19 TIME: 527 PATIENT: LIOR HUNT UNIT #: [id number] ROOM/BED: [facility] : 91 AGE: 28 SEX: F ATTEND: Alexa Feldman MD ADM AUTHOR: [place],Kristalynne T M D * ALL edits or amendments must be made on the Post-A-V[employer]/Aplica document * Subjective Comments: POD1 cc: abdominal pain Patient seen and examined Lumbar Epidural Catheter insertion site clean, d ry, intact Current pain scale [2]/10 Pain relieved by [resting] Current patient activity level [resting] No side effects noted. out today at 0529 RPT #:[id number] END OF REPORT 2019-09-20 14:57:00-00:[address] [facility] ([facility]) DT Operative Note REPORT#:[id number] REPORT STATUS: Signed DATE:09/20/19 TIME: 1456 PATIENT: LIOR HUNT UNIT #: [id number] ROOM/BED: [place] [id number] : [birth year] AGE: 28 SEX: F ATTEND: Alexa Feldman MD ADM AUTHOR: Eric Feldman MD * ALL edits or amendments must be made on the Post-A-Vox/Aplica document * Operative Report Operative Note Note: OPERATION DATE:09/20/19 START TIME:813 PROCEDURE: Repeat low transverse sectio n. SURGEON: Eric Feldman MD WIRING MECHANIC: Kirill Montero. LSA PREOPERATIVE DIAGNOSES: Single intrauterine preg malorie at 38+3 weeks with previous section, for elective repeat c esarean section. POSTOPERATIVE DIAGNOSES: Single intrauterine pre gnancy at 38+3 weeks with previous section, for elective repeat c esarean section. ANESTHESIA: Combined spinal epidural. ESTIMATED BLOOD LOSS: 600 mL. INTRAVENOUS FLUIDS: 1.3 L. URINE OUTPUT: 100 mL. SPECIMEN REMOVED: Cord, placenta, and membranes. COMPLICATIONS: None. FINDINGS: Viable male , weighing 3150gm, Apgars 8 and 8, delivered atraumatically from cephalic presentation. Tubes and ovaries grossly within normal limits bilaterally. DESCRIPTION OF PROCEDURE: The patient was taken to the operating room where combined spinal epidural was applied and found to be adequate. The patient was then prepped and draped in normal steril e fashion, placed in the dorsal supine position. Pfannenstiel skin incision was then made with a scalpel. Incision was then carried down to the und erlying layer of fascia with the scalpel. Fascia was then incised in midline and extended laterally bluntly. The superior edge of the fascial incision was grasped with Kolton clamps, elevated, tented over the rectus muscle, dissected wit h the Agrcia scissors. Rectus muscles in the midline. Peritoneum was identified and entered b luntly digitally, inferiorly and superiorly digitally. Gisela xis retractor was then inserted. Lower uterine segment was identified and entered sharp ly with the second knife. Incision was extended laterally bluntly. was then delivered atraumatically. Nose and kat th suctioned with bulb suction. Cord was clamped and cut. handed to the waiting nurses. Cord b lood obtained. Placenta was delivered with assistance. U terus was then exteriorized and cleared of all clot and debris. Uterine incision was then repaired with monocryl suture in a running locked fashion x 2 layers. Good hemostasis noted . Gutters and cul-de-sac were then cleared of all clot and debris. The uterus was then returned to the abdomen. Interceed was placed anterior to the lo wer segment incision. Emmanuel retractor was then removed. The rectus muscles and peritoneum complex were then reapproximated at the midline with mattress stit ch technique. Fascia was approximated with 0 Vicryl in a running nonlocke d fashion. The subcutaneous tissue was approximated with 0 Vicryl in a running nonlocked fashion. Skin was closed with 3-0 Monocryl subcuticular closure. T he patient tolerated the procedure well. Sponge, lap, needle, and instrument count were correct x 2. The patient was returned to the recovery room awake and in a stable condition. at 0900 RPT #:[id number] END OF REPORT 2019-09-20 14:56:00-00:[address] [facility] ([facility]) OB Delivery Note REPORT#:[id number] REPORT STATUS: Signed DATE:09/20/19 TIME: 1455 PATIENT: LIOR HUNT UNIT #: [id number] ROOM/BED: [place] [id number] : 91 AGE: 28 SEX: F ATTEND: Alexa Feldman MD ADM AUTHOR: Eric Feldman MD * ALL edits or amendments must be made on the Post-A-Vox/Aplica document * OB Delivery Pre-delivery Admission EGA (wks/days): 38 weeks Baby A Information Baby A information Delivery date: 09/20/19 Delivery time: 08 status: live born Wt of baby (grams): 3150 Gender: male 1 minute: 8 5 minutes: 8 Presentation: vertex ABG details Baby A Cord blood gases: not collected Nuchal cord Baby A Nuchal cord: yes (loose and reduced) Delivery section Primary indication: elective repeat Priority: scheduled : : declined )(SCDs applied activated: Yes Uterine incision: low transverse Uterine scar: incidental window Consent: indication discussed, questions answer ed, pt consent to op delivery Mother's condition: mother stable Infant's condition: infant stable in room Blood Loss/Details Blood loss at delivery: <1000 ml, no more than e xpected EBL at delivery (ml's): 600 at 1203 RPT #:[id number] END OF REPORT 2019-09-20 07:38:00-00:00 [facility] OB Admission / H P REPORT#:[id number] REPORT STATUS: Signed DATE:09/20/19 TIME: 737 PATIENT: LIOR HUNT UNIT #: [id number] ROOM/BED: [place] [address] : 91 AGE: 28 SEX: F ATTEND: Alexa Feldman MD ADM AUTHOR: Eric Feldman MD * ALL edits or amendments must be made on the Post-A-Vox/Aplica document * OB Admission H P Hx Allergies Coded Allergies: codeine (BREAKS OUT 09/20/19) Objective General VS: Last Documented: Result Date Time B/P Mean 78.0 09/19 0603 B/P 107/54 09/19 06 Pulse 83 08/05 0603 Vital Signs Date Temp Pulse Resp B/P B/P Mean Pulse Ox FiO2 09/19 83 107/54 78.0 Patient Weight Weight (lb): 297 Weight (oz): Weight (kg): 134.717 Physical Exam HEENT: normocephalic w/o injury Breasts: No distress Neuro: Exam: alert, oriented x3, normal speech Abdomen: gravid, soft, no abnormal tenderness, n o guarding, no rebound tenderness Uterine activity: Monitor: toco Pelvic exam: Pelvis clinically adequate: yes, inlet appears appropriate, pubic bone config appropr, no midpelvic contraction Vulvar lesions: none, no evidence herpetic les, no evidence of other STD Vagina: normal, non-septated, w/o apparent lesi ons Membranes: Membranes: status undetermined Lower extremities: Edema: trace Baby A: Baby A baseline: 130 bpm Baby A variability: moderate 6-25 bpm Baby A accelerations: 15 X 15 Baby A decelerations: none Baby A FHR category: category 1 Result Findings/Data: Laboratory Tests: 09/19 0542 Hematology WBC (4.5 - 11.0 x10 3/uL) 7.48 RBC (3.54 - 5.02 x10 6/uL) 3.79 Hgb (11.0 - 15.0 g/dL) 10.4 L Hct (33.0 - 45.0 %) 32.9 L MCV (81.0 - 99.0 fL) 86.8 MCH (27.0 - 33.0 pg) 27.4 MCHC (33.0 - 37.0 g/dL) 31.6 L RDW (11.5 - 14.5 %) 14.7 H Plt Count (150 - 400 x10 3/uL) 151 MPV (7.0 - 9.0 fL) 11.5 H Neut % (Auto) (56.0 - 77.0 %) 66.0 Lymph % (Auto) (14.0 - 32.0 %) 23.7 Ford % (Auto) (4.8 - 9.0 %) 7.9 Eos % (Auto) (0.3 - 3.7 %) 1.5 Baso % (Auto) (0.0 - 2.0 %) 0.4 Neut # (Auto) (2.0 - 7.6 x10 3/uL) 4.94 Lymph # (Auto) (1.0 - 3.8 x10 3/uL) 1.77 Ford # (Auto) (0.1 - 0.8 x10 3/uL) 0.59 Eos # (Auto) (0.0 - 0.2 x10 3/uL) 0.11 Baso # (Auto) (0.0 - 0.2 x10 3/uL) 0.03 Abs Immat Gran (auto) (0.00 - 0.03 x10 3/uL) 0. 04 H Add Manual Diff NO Immature Gran % (0.0 - 2.0 %) 0.5 Nucleated RBC % (0 - 0 %) 0.0 Nucleated RBCs # (Man) (0.0 - 0.1 x10 3/uL) 0.0 0 Serology Hep Bs Antigen (NonReactive INDEX) NON REACTIVE Diagnosis, Assessment Plan Diagnosis, Assessment Plan Free Text A P: 28 yr old P1113 LMP: 12/25/18 EDC: 10/01/19 @ 38+ 3 weeks GA dated by LMP c/w 8 +3 weeks sono on 02/23/19 presenting for scheduled C/S. She has no other acute complaints at this time. Den ies nausea, vomiting, abd pain, vaginal bleeding or LOF. +FM PNC complicated by: Previous c/s x 2 for repeat c/s at term. Fam Hx of WPW Obesity Class 3 Hx of pre-eclampsia - LDA Chlmaydia - s/p Azithro - Need retesting 3rd trimester h/o Pre-term delivery - on 17OHP. Syncopal episode - s/p ED visit- w/u Neg cHTN: - No meds for now. Multiparity Desires BTL- Signed papers- 06/22/19 s/p Hospital admission for headaches - s/p Neuro eval- 07/03-07/04- neg w/up - Rec B12 and propanolol - Doing better today- 08/29/19- On fioricet prn Dog bite to face-09/10/19 - was prescribed augmentin in the ED, Discontinu ed meds today- 09/12/19 - will continue with PCN- V/ Clinda - s/p TDap Delivery plan: >/= 38+ weeks OBhx: SAB x 1, C/S x 2, CD for TIUP GynHx: Denies MHx: Denies SurgHx: C/S x 2, Tonsils, adenoids, Appendectomy , right arm metal. Family Hx: DM, HTN, WPW. SHx: Denies Alcohol, Cigarette and illicit drug Use Meds: PNV Allergy: Codeine- Hives Vitals: Stable Gen: NAD HEENT: Normocephalic. CVS: S1S2 Lung: clear b/l Abd: NT, ND Ext: No calf tenderness, No DVT signs, Trace Jesse ma Pelvic: Normal external fema le genitalia, No lesions or masses in vulva, vagina or cervix. 02/10/19-UCG: Pos Labs: T S: O pos Antibody: Neg H/H: 12.7/38.8 HIV: Neg HbsAg: Neg Rubella: Immune RPR: NR GC/Chlam: Neg Pap: NFM NIPT- Low risk AFP: WNL GCT: 109 mg/dl GBS: Pos 02/23/19-Office sono: SIUP with CRL c/w 8+3 weeks GA. FHR: 166BPM Imp: IUP @ 38+3 Weeks GA with above Issues for r epeat C/S. Plan: Consents Ancef Anesthesia Plan discussed with: patient, family, nurse at 0742 RPT #:[id number] END OF REPORT 2019-08-22 23:42:00-00:[address] [facility] ([facility]) OB Medical Screening Exam REPORT#:[id number] REPORT STATUS: Signed DATE:08/22/19 TIME: 2341 PATIENT: LIOR HUNT UNIT #: [id number] ROOM/BED: [place] [address] : 91 AGE: 28 SEX: F ATTEND: Roxana Valadez MD ADM DT: AUTHOR: Roxana Bender MD * ALL edits or amendments must be made on the el ectronic/computer document * Medical Screening Exam Provider Attestation Attestation: The QMP MSE reviewed. Provider at bedside at 2039 Comments: 28 y/o IUP 34 2/7 pr esents due to gush of fluids that occured this 2010 at 2343 RPT #:[id number] END OF REPORT 2019-08-22 23:42:00-00:[address] [facility] ([facility]) KIMANI Evaluation Note REPORT#:[id number] REPORT STATUS: Signed DATE:08/22/19 TIME: 2342 PATIENT: LIOR HUNT UNIT #: [id number] ROOM/BED: : 91 AGE: 28 SEX: F ATTEND: Roxana Valadez MD ADM DT: AUTHOR: Roxana Bender MD * ALL edits or amendments must be made on the Post-A-Vox/computer document * KIMANI History Chief complaint: uterine contractions, suspected ruptured memb HPI: 28 y/o IUP 34 2 pr esents due to gush of fluids that occured this 2010. She refers good movem ents and denies, vaginal bleeding or recent exposure to COVID, fever or SOB. Verbal consent obtained from patient to discuss history, lab results, treatment, plan and any other pertinent information in fron t of patient's companions. history: : 4 Term: 0 : 2 Abortus: 1 Living children: 3 Current : EDC: 10/01/19 EGA (weeks/days): 34 weeks Past medical history: Thrombocytopenia Morbid Ob esity Preeclampsia Past surgical history: , appendectomy, cholecystectomy, Rt arm Social history: Denies Medications: Home Medications: Medication Dose/Rte/Freq Days Qty Entered Last Max Daily Dose Reviewed PNV WITH 1 CAP PO DAILY 08/04/16 08/22/19 CA/IRON/FA/DHA 0946 2210 (PRENATE ESSENTIAL) Strength: 1 EACH CAP Allergies Coded Allergies: codeine (BREAKS OUT 06/26/19) Review of Systems Additional notes: Constitutional: Denies: chills, fatigue, fever, generalized weak ness, lethargy, malaise. Respiratory: Denies: productive cough (sputum), SOB. GI: Refers: nausea Denies: abdominal pain, constipation, diarrhea, vomiting. : Refers: gush of vaginal fluids and contractions Denies: urgency, vaginal bleeding. Neuro: Denies: headache Objective General VS: Last Documented: Result Date Time B/P Mean 78.0 08/21 2236 B/P 112/57 08/21 2236 Pulse 81 08/21 2236 Vital Signs Date Temp Pulse Resp B/P B/P Mean Pulse Ox FiO2 08/21 81-88 112-115/57-59 78.0-80.0 Patient Weight Weight (lb): 292 Weight (oz): Weight (kg): 132.449 Physical Exam Additional comments: Gen: AAOx3 Lungs: normal respiratory effort Neuro: Exam: alert, oriented x3 Abdomen: gravid, soft Uterine activity: Monitor: toco Frequency (description): irregular Frequency (minutes): irregular PARKING TECHNICIAN: Normal exteral genitalia Cervical/ exam: Speculum exam: No pooling of amniotic fluid Dilatation (cm): closed Effacement (%): thick station: high Membrane status: IM, amnisure negative FHR evaluation: FHR category: category I Result Findings/Data: Laboratory Tests: 08/21 08/21 2315 2245 Other Body Source Membrane Rupture (NEGATIVE) NEGATIVE Urines Urine Color (YEL/STRAW) YELLOW Urine Appearance (CLEAR) CLEAR Urine pH (5.0 - 7.0) 6.0 Ur Specific [place] (1.005 - 1.030) 1.012 Urine Protein (NEGATIVE) NEGATIVE Urine Glucose (UA) (NEGATIVE) NEGATIVE Urine Ketones (NEGATIVE) NEGATIVE Urine Blood (NEGATIVE) NEGATIVE Urine Nitrite (NEGATIVE) NEGATIVE Urine Bilirubin (NEGATIVE) NEGATIVE Urine Urobilinogen (0.2 - 1.0 mg/dL) 0.2 Ur Leukocyte Esterase (NEGATIVE) NEGATIVE Urine RBC (0 - 3 RBC/HPF) 0-3 Urine WBC (0 - 3 WBC/HPF) 0-3 Ur Squamous Epith Cells (NONE SEEN /HPF) 0-5 Urine Bacteria (NONE SEEN /HPF) TRACE Urine Mucus (NONE SEEN /LPF) TRACE Diagnosis, Assessment Plan Diagnosis, Assessment Plan Problem List/A P: 1. 34 weeks gestation of Free Text A P: initial exam 2240 Patient presents due to complaint of regular kenny rine contractions and gush of fluids. Will keep for labor check, will send Amn isure. Re-evalution 0030 No cervical change, very irregular contractions and amnisure negative 28 y/o IUP 34 03/24 presented due to gush of fluids that occured this 2010. Discussed case with Dr. Hall, who is o n call for Dr Feldman, she agreed on discharge. Patent found to be hemodyna mically stable with normal vital signs, category I strip and found no t to be in labor. Oriented on discharge and labor precautions as well as kick counts and she voiced understanding will have her follow-up with her BEATER LEAD. Patient oriented on risk of PTL and other OB related complication s due to COVID. Oriented her on social distancing, hand washing and wearing a mask. Assessment: no evidence labor, reassuring status Impression: normal FHR pattern Plan: discharge home Plan discussed with: patient, family, nurse, Dr. Hall at 0617 RPT #:[id number] END OF REPORT 2019-08-11 20:35:00-00:00 [facility] OB Triage Visit REPORT#:[id number] REPORT STATUS: Signed DATE:08/11/19 TIME: 2034 PATIENT: LIOR HUNT UNIT #: [id number] ROOM/BED: [place] [address] : 91 AGE: 28 SEX: F ATTEND: Joseph Oro DO ADM DT: AUTHOR: Sagrario Oro DO * ALL edits or amendments must be made on the el SOL ELIXIRSronic/computer document * Subjective Subjective Patient reports: vaginal bleeding, contractions History Nursing Documentation Review Nursing data: The data set between the solid lines has been im ported from nursing documentation. Any exceptions have been noted be low under Provider comments. Current data Steroids prior to arrival: ROM date: ROM time: EGA (weeks/days): EGA at admit (weeks): EDC date: 10/01/19 Prior history : Para: 2 Term: : Abortions spontaneous: Abortions induced: Living children: Ectopic: Stillbirths: Live births: deaths: Number of previous C/S: Reported maternal labs/data Blood type: Rh type: Rubella: Hepatitis B: HIV exposure test: VDRL: Group B beta strep: Rho(D) immune globulin this preg: Monitor mode - UA: Feeding preference: Provider comments on imported nursing data: [] Chief complaint Chief complaint: evaulate for labor, vaginal ble eding HPI: 28 Y/O edc AT 32 W 5 D AY here for pelvic cramping that began at 0400 this am and continue d as she was at her grandfather . She denies sex. Says she began to spot when wiped. [place] lik e cxn for 2 day prior. FM present, no LOF. Denies cough or sore throat but feels core warmth, was hot today outside. Drank 5 water bottles. Intermitte nt ABRAHAM, blurry vision, and she vomited today this am. history: : 4 Term: 0 : 2 Abortus: 1 Living children: 3 Complications (prev preg): hypertension, multip le gestation Previous : unknown uterine incision Number of prev : 2 Indication for prior : arrest dilatatio n/descent, repeat medical Current Current : EDC: 10/01/19 EGA (weeks/days): 32w5d Steroids prior to arrival: yes Conditions of : previous uterin e incision, chronic HTN w/pre-eclamps, CF carrier maternal, father unknown, thrombocyto penia borderline poly Labs: Blood type: No records at the moment. Past history Past medical history: hypertension Past surgical history: , cholecystectom y, Tonsillectomy Right arm sx Social history: unemployed, single, no alcohol use, no tobacco use, no drug use Medications: Home Medications: Medication Dose/Rte/Freq Days Qty Entered Last Max Daily Dose Reviewed PNV WITH 1 CAP PO DAILY 08/04/16 08/11/19 CA/IRON/FA/DHA 0946 2000 (PRENATE ESSENTIAL) Strength: 1 EACH CAP Current Hospital Medications: Electrolytic, Caloric, And Mike Sig/Avtar Start time Last Medication Dose Route Stop Time Status Admin Lactated Ringer's 1,000 ML BOLUS 08/10 2044 AC (LACTATED RINGERS) IV 09/10 2043 Allergies Coded Allergies: codeine (BREAKS OUT 06/26/19) Review of Systems Constitutional: Denies: fever. ENT: Denies: sore throat. Respiratory: Denies: non productive cough, productive cough ( sputum), SOB. Cardiovascular: Denies: chest pain. GI: Denies: constipation, diarrhea, nausea, vomiting . : Reports: , vaginal bleeding. Musculoskeletal: Denies: myalgias. Neuro: Denies: headache. Objective General VS: Last Documented: Result Date Time Temp 99.1 08/11 1955 B/P Mean 83.0 08/11 1951 B/P 121/58 08/11 1951 Pulse 75 08/11 1951 Vital Signs Date Temp Pulse Resp B/P B/P Mean Pulse Ox FiO2 08/10 99.1 75 121/58 83.0 Patient Weight Weight (lb): 294 Weight (oz): Weight (kg): 133.356 Physical Exam: External genitalia: normal Vagina discharge Uterus: normal Fundus: approp. for gestat. age Cervical/ exam: Dilatation (cm): 0 - closed Effacement (%): 0 FHR evaluation: Baseline: 140 bpm Variability: moderate 6-25 bpm Accelerations: 15 X 15 Decelerations: none FHR category: category 1 Uterine activity: Monitor: toco Frequency (description): irritability, irregula r Frequency (minutes): 4 heart rate pattern: category I Diagnosis, Assessment Plan Diagnosis, Assessment Plan Free text A P: 28 y/o at 32 w 5 d here w cramping, cxn on Lafferty Iv hydration FFN UA Watch temps/vitals (Labs drawn with Dr. Hedrick yesterday and pt got call wnl today). at 2041 RPT #:[id number] END OF REPORT 2019-08-11 20:35:00-00:00 [facility] ([facility]) OB Triage Visit REPORT#:[id number] REPORT STATUS: Signed DATE:08/11/19 TIME: 2034 PATIENT: LIOR HUNT UNIT #: [id number] ROOM/BED: [place] [address] : 91 AGE: 28 SEX: F ATTEND: Joseph Oro DO ADM DT: AUTHOR: Sagrario Oro DO * ALL edits or amendments must be made on the Post-A-Vox/computer document * See Addendum Subjective Subjective Patient reports: vaginal bleeding, contractions History Nursing Documentation Review Nursing data: The data set between the solid lines has been im ported from nursing documentation. Any exceptions have been noted be low under Provider comments. Current data Steroids prior to arrival: ROM date: ROM time: EGA (weeks/days): EGA at admit (weeks): EDC date: 10/01/19 Prior history : Para: 2 Term: : Abortions spontaneous: Abortions induced: Living children: Ectopic: Stillbirths: Live births: deaths: Number of previous C/S: Reported maternal labs/data Blood type: Rh type: Rubella: Hepatitis B: HIV exposure test: VDRL: Group B beta strep: Rho(D) immune globulin this preg: Monitor mode - UA: Feeding preference: Provider comments on imported nursing data: [] Chief complaint Chief complaint: evaulate for labor, vaginal ble eding HPI: 28 Y/O edc AT 32 W 5 D AY here for pelvic cramping that began at 0400 this am and continue d as she was at her grandfather . She denies sex. Says she began to spot when wiped. [place] lik e cxn for 2 day prior. FM present, no LOF. Denies cough or sore throat but feels core warmth, was hot today outside. Drank 5 water bottles. Intermitte nt ABRAHAM, blurry vision, and she vomited today this am. history: : 4 Term: 0 : 2 Abortus: 1 Living children: 3 Complications (prev preg): hypertension, multip le gestation Previous : unknown uterine incision Number of prev : 2 Indication for prior : arrest dilatatio n/descent, repeat medical Current Current : EDC: 10/01/19 EGA (weeks/days): 32w5d Steroids prior to arrival: yes Conditions of : previous uterin e incision, chronic HTN w/pre-eclamps, CF carrier maternal, father unknown, thrombocyto penia borderline poly Labs: Blood type: No records at the moment. Past history Past medical history: hypertension Past surgical history: , cholecystectom y, Tonsillectomy Right arm sx Social history: unemployed, single, no alcohol use, no tobacco use, no drug use Medications: Home Medications: Medication Dose/Rte/Freq Days Qty Entered Last Max Daily Dose Reviewed PNV WITH 1 CAP PO DAILY 08/04/16 08/11/19 CA/IRON/FA/DHA 0946 2000 (PRENATE ESSENTIAL) Strength: 1 EACH CAP Current Hospital Medications: Electrolytic, Caloric, And Mike Sig/Avtar Start time Last Medication Dose Route Stop Time Status Admin Lactated Ringer's 1,000 ML BOLUS 08/10 2044 AC (LACTATED RINGERS) IV 09/10 2043 Allergies Coded Allergies: codeine (BREAKS OUT 06/26/19) Review of Systems Constitutional: Denies: fever. ENT: Denies: sore throat. Respiratory: Denies: non productive cough, productive cough ( sputum), SOB. Cardiovascular: Denies: chest pain. GI: Denies: constipation, diarrhea, nausea, vomiting . : Reports: , vaginal bleeding. Musculoskeletal: Denies: myalgias. Neuro: Denies: headache. Objective General VS: Last Documented: Result Date Time Temp 99.1 08/11 1955 B/P Mean 83.0 08/11 1951 B/P 121/58 08/11 1951 Pulse 75 08/11 1951 Vital Signs Date Temp Pulse Resp B/P B/P Mean Pulse Ox FiO2 08/10 99.1 75 121/58 83.0 Patient Weight Weight (lb): 294 Weight (oz): Weight (kg): 133.356 Physical Exam: External genitalia: normal Vagina discharge Uterus: normal Fundus: approp. for gestat. age Cervical/ exam: Dilatation (cm): 0 - closed Effacement (%): 0 FHR evaluation: Baseline: 140 bpm Variability: moderate 6-25 bpm Accelerations: 15 X 15 Decelerations: none FHR category: category 1 Uterine activity: Monitor: toco Frequency (description): irritability, irregula r Frequency (minutes): 4 heart rate pattern: category I Diagnosis, Assessment Plan Diagnosis, Assessment Plan Free text A P: 28 y/o at 32 w 5 d here w cramping, cxn on [place] Iv hydration FFN UA Watch temps/vitals (Labs drawn with Dr. Hedrick yesterday and pt got call wnl today). at 2041 Addendum 1: 08/11/192141 by Sagrario Oro DO UA neg FFN Afebrile Irritability But VE unchanged. at 2208 RPT #:[id number] END OF REPORT 2019-07-05 16:00:00-00:[address] [facility] ([facility]) OB Disch Undelivered REPORT#:[id number] REPORT STATUS: Signed DATE:07/05/19 TIME: 1600 PATIENT: LIOR HUNT UNIT #: [id number] ROOM/BED: [place] [address] : 91 AGE: 28 SEX: F ATTEND: Alexa Feldman MD ADM AUTHOR: Eric Feldman MD * ALL edits or amendments must be made on the Post-A-Vox/Aplica document * Subjective Subjective Admission EGA (wks/days): 27+3 Objective General VS: Last Documented: Result Date Time B/P Mean 82.0 07/04 2011 B/P 117/59 07/04 2011 Temp 36.9 07/04 2011 Pulse 84 07/04 2011 Vital Signs Date Temp Pulse Resp B/P B/P Mean Pulse Ox FiO2 07/03 36.9 84-96 117-132/59-65 82.0-90.0 Patient Weight Weight (lb): 290 Weight (oz): Weight (kg): 131.542 Physical Exam HEENT: normocephalic w/o injury Lungs: no distress Neuro: Exam: alert, oriented x3, normal speech Abdomen: gravid, soft, no abnormal tenderness, n o guarding, no rebound tenderness Uterus: non-tender Lower extremities: Edema: trace Discharge Undelivered Discharge Undelivered Free Text A P: IUP @ 27+3 Weeks GA with migraine headaches. s/p neuro eval. plan for d/c home f/up in office. Instructions: routine instr sheet given, instr a nd warnings rev'd, specific instr as noted Warnings: bleeding, nausea/v omit/dehydration, labor warnings, preeclampsia signs /sympt, decreased movement, fever Diet: regular Discharge meds: Continue taking these medications: PNV WITH CA/IRON/FA/DHA (PRENATE ESSENTIAL) 1 EA CH CAP 1 CAPSULE ORAL DAILY. Prescriptions: on chart Consultation(s) performed: Consultation performed: neurologist Discharge condition: stable Discharge to: home Follow up with: neurologist Follow up in: 2 weeks at 1603 RPT #:[id number] END OF REPORT 2019-07-05 10:58:00-00:[address] [facility] ([facility]) OB Admission / H P REPORT#:[id number] REPORT STATUS: Signed DATE:07/05/19 TIME: 1058 PATIENT: LIOR HUNT UNIT #: [id number] ROOM/BED: [place] [address] : 91 AGE: 28 SEX: F ATTEND: Alexa Feldman MD ADM AUTHOR: Eric Feldman MD * ALL edits or amendments must be made on the [employer]-A-Vox/computer document * OB Admission H P Hx history: Complications (prev preg): hypertension, obesit y Allergies Coded Allergies: codeine (BREAKS OUT 06/26/19) Objective Physical Exam Uterine activity: Monitor: toco Diagnosis, Assessment Plan Diagnosis, Assessment Plan Free Text A P: 28 yr old P1113 LMP: 12/25/18 EDC: 10/01/19 @ 27+ 3 weeks GA dated by LMP c/w 8 +3 weeks sono on 02/23/19 pres enting with complaints of headaches. States that it is 10/10 in intensity with mild improvement with fioricet. She has no other complaints at this time. Denies Blurry vision, n ausea, vomiting, abd pain, vaginal bleeding or urinary symptoms. PNC complicated by: Previous c/s x 2 for repeat c/s at term. Fam Hx of WPW Obesity Class 3 Hx of pre-eclampsia - LDA Chlmaydia - s/p Azithro - Need retesting 3rd trimester h/o Pre-term delivery - on 17OHP. Syncopal episode - s/p ED visit- w/u Neg cHTN: - On Labetalol 200mg TID. Multiparity Desires BTL- sIGNED PAPERS- 06/22/19 OBhx: SAB x 1, C/S x 2, CD for TIUP GynHx: Denies MHx: Denies SurgHx: C/S x 2, Tonsils, adenoids, Appendectomy , right arm metal. Family Hx: DM, HTN, WPW. SHx: Denies Alcohol, Cigarette and illicit drug Use Meds: PNV Allergy: Codeine- Hives Vitals: Stable Gen: NAD HEENT: Normocephalic. CVS: S1S2 Lung: clear b/l Abd: NT, ND Ext: No calf tenderness, No DVT signs, Trace Jesse ma Pelvic: Normal external fema le genitalia, No lesions or masses in vulva, vagina or cervix. 02/10/19-UCG: Pos Labs: T S: O pos Antibody: Neg H/H: 12.7/38.8 HIV: Neg HbsAg: Neg Rubella: Immune RPR: NR GC/Chlam: Neg Pap: NFM NIPT- Low risk AFP: WNL 02/23/19-Office sono: SIUP with CRL c/w 8+3 weeks GA. FHR: 166BPM Imp: IUP @ 27+3 Weeks GA with migraine headaches - No improvements with home mgmt. Unlikely pre-eclampsia. Plan: Awaiting neurology consult d/c after neuro eval. at 1559 RPT #:[id number] END OF REPORT 2019-07-05 10:49:00-00:00 [facility] Neurology Consultation Note REPORT#:[id number] REPORT STATUS: Signed DATE:07/05/19 TIME: 1049 PATIENT: LIOR HUNT UNIT #: [id number] ROOM/BED: [place] [id number] : 91 AGE: 28 SEX: F ATTEND: Alexa Feldman MD ADM AUTHOR: Lakeisha Latham MD * ALL edits or amendments must be made on the el Trooval/computer document * History of Present Illness HPI Requesting clinician: OB-PARKING TECHNICIAN Reason for consult: headaches HPI: 28 y/o EDC 10/01/2019 at 27 w 2 day here for a ABRAHAM that began at 5 am yesterday. patient has had m igraines for a while and she had the similar type of headaches (severe 10/10 at onset) in rochelle or pregnancies relieved with fioricet. She also has flashes and floaters in her vision with these migraines. No scintillating scotomas per her. She is otherwise doing ok. She is morbidly obese. SHe has photophobia, phonophobia but no o smophobia History - Adult longitudinal Additional medical history: not pertinent Past surgical history: Reports: Appendectomy, , Tonsillectomy. Additional surgical history: adenoidectomy Additional family history: not pertinent Drug use: Denies recreational drugs Other social history: Local resident, [place] Allergies: Coded Allergies: codeine (BREAKS OUT 06/26/19) Review of Systems Constitutional: Denies: chills, fatigue, fev er, generalized weakness, lethargy, malaise, recent wt loss, other. Skin: Denies: abrasion, bruising, contusion, diaphores is, ecchymosis, itching, laceration, rash, swelling, other. Allergy/Immun: Denies: allergic reaction, anaphylaxis, hives, i tching, rhinorrhea, sneezing, other. Eyes: Denies: redness, discharge, visual loss/blurred, itching, diplopia, eye pain, photophobia, swelling, other. ENT: Denies: ear drainage, ear ringing, earache, hear ing loss, mouth pain, nasal congestion, nose bleeding, sinus problem, sore t hroat, throat pain, throat swelling, tongue pain, tongue swelling, toothach e, voice change, other. Respiratory: Denies: BUSTILLO (dyspnea on exertion), hemoptysis, n on productive cough, parox nocturnal dyspnea, pleurisy, pleuritic pain, pneumonia, productive cough (sputum ), SOB, wheezing, other. Cardiovascular: Denies: chest pain, BUSTILLO (dyspnea on exer tion), edema, orthopnea, palpitations, parox nocturnal dyspnea, other. GI: Denies: abdominal pain, anorexia, constipation, diarrhea, dysphagia, GERD, hematemesis, hematochezia, h iatal hernia, melena, nausea, rectal pain, vomiting, other. : Denies: dysuria, flank pain, frequency, hematuri a, nocturia, pelvic pain, , urgency, urinary retention, vaginal bl eeding, vaginal discharge, other. Neuro: Reports: headache. Denies: bladder dysfunction, bowel dysfunction, change in LOC, confusion, dizziness, f ocal weakness, gait problem, lightheaded, numbness, seizure, slurred speech, spinning sensation, syn cope, unable to speak, vision change, weakness, other. Psych: Denies: agitation, anxiety, auditory hallucinati on, change in mental status, confusion, delusional, depre ssion, homicidal ideation, hostile, insomnia, stress , suicidal ideation, visual hallucination, other . Objective General VS: Last Documented: Result Date Time B/P Mean 82.0 07/04 2011 B/P 117/59 07/04 2011 Temp 36.9 07/04 2011 Pulse 84 07/04 2011 Patient Weight Weight (lb): 290 Weight (oz): Weight (kg): 131.542 Medications Current Home Medications PNV WITH CA/IRON/FA/DHA (PRENATE ESSENTIAL) 1 CA P PO DAILY Active Meds + DC'd Last 24 Hrs Acetaminophen/Butalbital/Caffeine 1 TAB Q6H PRN PRN PO Lactated Ringer's 1,000 ML .Q8H IV Magnesium Hydroxide 30 ML TID PRN PRN PO Ondansetron HCl 4 MG Q4H PRN PRN IV Simethicone 160 MG Q2H PRN PRN PO Lactated Ringer's 1,000 ML BOLUS IV (DC) Magnesium Oxide 400 MG ONCE@1545 PO (DC) Nutrition asessment: The data set between the solid lines has been im ported from the dietitian's assessment. Any exceptions have been noted under Provider comments. BMI Calculated: 51.37 Nutrition related diagnosis: Nutrition diagnosis details: Nutrition problem: Nutrition etiology: Nutrition signs and symptoms: Nutrition prescription: Dietitian name: Assessment completed: Provider comments on imported dietitian assessme nt: Physical Exam General appearance: alert, awake, oriented, no a cute distress Head/Eyes: atraumatic ENT: moist mucosal membranes Neck: full range of motion Cardiovascular: regular rate and rhythm Respiratory: aerating well Neuro comment: Mental Status:AAOx3 Speech and Language: No apha jairon or dysarthria noted. Repetition and tone within normal limits Cranial Nerves: Pupils (II, III): 5mm to 2mm briskly reactive, N o APD Visual armstrong (II): full to confrontation EOMs (III, IV,): intact in all directions of gaze, No nystagmus or forced gaze deviation Facial motor (VII): symmetric with intact sensat ions Vest/hearing (VIII): Intact Gloss/vagus (IX,X): Uvula in midline Accessory n. (IX): Good strength of SCM/traps Hypoglossal (XII): Tongue in midline Motor: 5/5 in all extremities Sensory: Intact to LT/PP Reflexes: 2+ in all extremities Coordination: Intact HTS and FTN Gait: Deferred Scores Vanita [place] Coma Score: [place] Coma Score: Response Value [place] eyes: eyes open spontaneously 4 [place] speech: oriented 5 [place] motor: obeys commands 6 Total 15 NIH Stroke Scale NIH Stroke Scale NIH Stroke Scale Response Value NIHSS Applicable? No 0 Total 0 Diagnosis, Assessment Plan Problem List/A P: 1. Migraine Free Text DxA P Notes: Migraines in Plan: Continue fioricet Start propranolol 20 mg bid Start Pyridoxine 400 mg daily F/u in clinic post- with dr portillo thanks for the consult Call with questions Lakeisha Latham MD, MPH Electronically Signed by Lakeisha Latham MD on 06/16 at 1054 RPT #:[id number] END OF REPORT 2019-07-04 20:59:00-00:00 [facility] Clinical Note REPORT#:[id number] REPORT STATUS: Signed DATE:07/04/19 TIME: 2058 PATIENT: LIOR HUNT UNIT #: [id number] ROOM/BED: [place] [address] : 91 AGE: 28 SEX: F ATTEND: Alexa Feldman MD ADM AUTHOR: Lakeisha Latham MD * ALL edits or amendments must be made on the [employer]/Aplica document * Clinical Note Note: Notified of consult by Dr Oro. It is not a stat consult per Dr Oro. Patient will be seen in next 24 hours. Thanks for the consult Call with questions Lakeisha Latham MD, MPH Electronically Signed by Lakeisha Latham MD on 06/15 11/04 at 2100 RPT #:[id number] END OF REPORT 2019-07-04 16:12:00-00:[address] [facility] ([facility]) OB Triage Visit REPORT#:[id number] REPORT STATUS: Signed DATE:07/04/19 TIME: 1612 PATIENT: LIOR HUNT UNIT #: [id number] ROOM/BED: [place] [address] : 91 AGE: 28 SEX: F ATTEND: Joseph Oro DO ADM DT: AUTHOR: Sagrario Oro DO * ALL edits or amendments must be made on the [employer]/Aplica document * Subjective Subjective Patient reports: headache, scotomata History Nursing Documentation Review Nursing data: The data set between the solid lines has been im ported from nursing documentation. Any exceptions have been noted be low under Provider comments. Current data Steroids prior to arrival: ROM date: ROM time: EGA (weeks/days): EGA at admit (weeks): EDC date: 10/01/19 Prior history : Para: 2 Term: : Abortions spontaneous: Abortions induced: Living children: Ectopic: Stillbirths: Live births: deaths: Number of previous C/S: Reported maternal labs/data Blood type: Rh type: Rubella: Hepatitis B: HIV exposure test: VDRL: Group B beta strep: Rho(D) immune globulin this preg: Monitor mode - UA: Feeding preference: Provider comments on imported nursing data: [] Chief complaint Chief complaint: HEADACHE HPI: 28 y/o EDC 10/01/2019 at 27 w 2 day here for a ABRAHAM that began at 0500. She gets ABRAHAM regularly with . Took 2 ASA and 2 Tylenol today w/o relief. Was here last week. Saw Dr. Floridalma LOPEZ today with BP 141/78. Denies CXn, LOF, VB, and has good FM. Admits to cramping. Sa ys she sees black spots, and fingers tingle. Says nothing helps but the dark; and that there are no triggers she is aware of. Did vomit yesterday and was marie seated. history: : 4 Term: 1 : 1 Abortus: 1 Living children: 3 Complications (prev preg): hypertension, obesit y Previous : unknown uterine incision Number of prev : 2 Current Current : EDC: 10/01/19 EGA (weeks/days): 27 w 2 day Steroids prior to arrival: no Conditions of : previous uterine incisi on Labs: Blood type: No records at the moment. 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 Past surgical history: , appendectomy, T A Right arm sx and metal. Social history: unemployed, single, no alcohol use, no tobacco use, no drug use Medications: Home Medications: Medication Dose/Rte/Freq Days Qty Entered Last Max Daily Dose Reviewed PNV WITH 1 CAP PO DAILY 08/04/16 07/04/19 CA/IRON/FA/DHA 0946 1458 (PRENATE ESSENTIAL) Strength: 1 EACH CAP Current Hospital Medications: Electrolytic, Caloric, And Mike Sig/Avtar Start time Last Medication Dose Route Stop Time Status Admin Lactated Ringer's 1,000 ML .Q8H 07/03 1615 AC (LACTATED RINGERS) IV 08/02 1614 Lactated Ringer's 1,000 ML BOLUS 07/03 1545 DC (LACTATED RINGERS) IV 07/03 1615 Gastrointestinal Drugs Sig/Avtar Start time Last Medication Dose Route Stop Time Status Admin Magnesium Hydroxide 30 ML TID PRN PRN 07/03 161 5 AC (MILK OF MAGNESIA) PO 08/02 161 Ondansetron HCl 4 MG Q4H PRN PRN 07/03 1615 AC (ZOFRAN) IV 08/02 161 Simethicone 160 MG Q2H PRN PRN 07/03 1615 AC (MYLANTA GAS) PO 08/02 1614 Magnesium Oxide 400 MG ONCE@1545 07/03 1545 AC (MAG-OX 400) PO 07/03 1945 Allergies Coded Allergies: codeine (BREAKS OUT 06/26/19) Review of Systems Constitutional: Denies: fever. Eyes: photophobia, other (seeing spots). ENT: Denies: sore throat. Respiratory: Denies: non productive cough, productive cough ( sputum). Cardiovascular: Denies: chest pain. GI: Reports: nausea. Denies: constipation, diarrhea, vomiting. : Reports: . Denies: vaginal bleeding. Neuro: headache. Objective General VS: Last Documented: Result Date Time B/P Mean 95.0 07/03 1523 B/P 137/68 07/03 1523 Pulse 100 07/03 1523 Temp 98.6 07/03 1507 Vital Signs Date Temp Pulse Resp B/P B/P Mean Pulse Ox FiO2 07/03 98.6 90-104 132-137/61-68 88.0-95.0 Patient Weight Weight (lb): 290 Weight (oz): Weight (kg): 131.542 Physical Exam: FHR evaluation: Baseline: 140 bpm Variability: moderate 6-25 bpm Decelerations: none FHR category: category 1 Uterine activity: Monitor: toco Frequency (description): none heart rate pattern: category I Diagnosis, Assessment Plan Diagnosis, Assessment Plan Free text A P: 28 y/o at 27 w 2 day c/o ABRAHAM w/o relief from OTC meds Tearful in the room, BP stable, UA sent Spoke with Dr. Thakkar who would like to OBS pt until Neuro can see her, prob in the am. Consult placed and I spoke with Neuro over t he phone. IV fluids, PO mag oxide Dr. Thakkar will presume care. at 1620 RPT #:[id number] END OF REPORT 2019-06-27 13:15:00-00:[address] [facility] ([facility]) OB Disch Undelivered REPORT#:[id number] REPORT STATUS: Signed DATE:06/27/19 TIME: 1314 PATIENT: LIOR HUNT UNIT #: [id number] ROOM/BED: [place] [address] : 91 AGE: 28 SEX: F ATTEND: Alexa Feldman MD ADM AUTHOR: Eric Feldman MD * ALL edits or amendments must be made on the [employer]/Aplica document * Subjective Subjective Status/Day: hospital day (day 1) Objective General VS: Last Documented: Result Date Time Pulse Ox 99 06/26 0909 Pulse 77 06/26 0909 B/P Mean 68.0 06/26 0902 B/P 98/49 06/26 0902 Resp 18 06/26 0348 Temp 36.7 06/25 2211 Vital Signs Date Temp Pulse Resp B/P B/P Mean Pulse Ox FiO2 06/25-06/26 36.6-36.8 60-194 16-48 96-128/49-75 68.0-96.0 83-100 Patient Weight Weight (lb): 289 Weight (oz): Weight (kg): 131.088 Physical Exam Cervical/ exam: Dilatation (cm): 0 - closed FHR evaluation: Baby A baseline: 130 bpm Baby A variability: moderate 6-25 bpm Baby A accelerations: 15 X 15 Baby A decelerations: none Uterine activity: Monitor: toco HEENT: normocephalic w/o injury Lungs: No distress Neuro: Exam: alert, oriented x3, normal speech Abdomen: gravid, soft, no abnormal tenderness, n o guarding, no rebound tenderness Uterus: tender Lower extremities: Edema: trace Discharge Undelivered Discharge Undelivered Assessment: Hospital course: received beta labs neg for pre-E Improved Headaches with IV hydration and tylwnol . stable for d/c home Instructions: routine instr sheet given, instr a nd warnings rev'd, specific instr as noted Warnings: bleeding, nausea/v omit/dehydration, labor warnings, preeclampsia signs /sympt, decreased movement, fever Diet: regular Activity and restrictions: normal - up ad dewayne Discharge meds: Stop taking the following medications: LABETALOL (TRANDATE) 100 MG TAB MILLIGRAM ORAL TWICE DAILY. Continue taking these medications: PNV WITH CA/IRON/FA/DHA (PRENATE ESSENTIAL) 1 EA CH CAP 1 CAPSULE ORAL DAILY. Prescriptions: on chart Consultation(s) performed: Consultation performed: anesthesia Discharge condition: stable Discharge to: home Follow up with: room attendant Follow up in: 1 week at 0648 RPT #:[id number] END OF REPORT 2019-06-26 16:41:00-00:00 [facility] OB Admission / H P REPORT#:[id number] REPORT STATUS: Signed DATE:06/26/19 TIME: 1640 PATIENT: LIOR HUNT UNIT #: [id number] ROOM/BED: [place] [address] : 91 AGE: 28 SEX: F ATTEND: Alexa Feldman MD ADM AUTHOR: Eric Feldman MD * ALL edits or amendments must be made on the el [employer]/computer document * OB Admission H P Hx Allergies Coded Allergies: codeine (BREAKS OUT 06/26/19) Objective General VS: Last Documented: Result Date Time Pulse Ox 99 06/26 0909 Pulse 77 06/26 0909 B/P Mean 68.0 06/26 0902 B/P 98/49 06/26 0902 Resp 18 06/26 0348 Temp 36.7 06/25 2211 Patient Weight Weight (lb): 289 Weight (oz): Weight (kg): 131.088 Physical Exam Uterine activity: Monitor: toco Diagnosis, Assessment Plan Diagnosis, Assessment Plan Free Text A P: 28 yr old [id number] LMP: 12/25/18 EDC: 10/01/19 @ 26+ 1 weeks GA dated by LMP c/w 8 +3 weeks sono on 02/23/[address] [facility] and delivery from [facility] for PIH eval due to headaches and elevate d blood pressures. Headaches are 10/10 in intensity and worsened over the past 24 hrs. She has no ot her complaints at this time. Denies Blurry vision, nausea, vomiting, abd pain , vaginal bleeding or urinary symptoms. PNC complicated by: Previous c/s x 2 for repeat c/s at term. Fam Hx of WPW Obesity Class 3 Hx of pre-eclampsia - LDA Chlmaydia - s/p Azithro - Need retesting 3rd trimester h/o Pre-term delivery - on 17OHP. Syncopal episode - s/p ED visit- w/u Neg cHTN: - On Labetalol 200mg TID. Multiparity Desires BTL- sIGNED PAPERS- 06/22/19 OBhx: SAB x 1, C/S x 2, CD for TIUP GynHx: Denies MHx: Denies SurgHx: C/S x 2, Tonsils, adenoids, Appendectomy , right arm metal. Family Hx: DM, HTN, WPW. SHx: Denies Alcohol, Cigarette and illicit drug Use Meds: PNV Allergy: Codeine- Hives Vitals: Stable Gen: NAD HEENT: Normocephalic. CVS: S1S2 Lung: clear b/l Abd: NT, ND Ext: No calf tenderness, No DVT signs, Trace Jesse ma Pelvic: Normal external fema le genitalia, No lesions or masses in vulva, vagina or cervix. 02/10/19-UCG: Pos Labs: T S: O pos Antibody: Neg H/H: 12.7/38.8 HIV: Neg HbsAg: Neg Rubella: Immune RPR: NR GC/Chlam: Neg Pap: NFM NIPT- Low risk AFP: WNL 02/23/19-Office sono: SIUP with CRL c/w 8+3 weeks GA. FHR: 166BPM Imp: IUP @ 26+1 Weeks GA for PIH eval. Plan: Admit to labor and delivery PI labs tylenol prn Beta NST Q shift. at 0646 RPT #:[id number] END OF REPORT 2019-05-30 19:57:00-00:00 [facility] ([facility]) KIMANI Evaluation Note REPORT#:[id number] REPORT STATUS: Signed DATE:05/30/19 TIME: 1956 PATIENT: LIOR HUNT UNIT #: [id number] ROOM/BED: [place] [address] : 91 AGE: 28 SEX: F ATTEND: Roxana Valadez MD ADM DT: AUTHOR: Roxana Bender MD * ALL edits or amendments must be made on the Post-A-V[employer]/computer document * KIMANI History Chief complaint: Cramping and pelvic pressure HPI: 28 y/o IUP 22 3/7 presents due to crampi ng and pelvic pressure. She also complains of headache but she stated that s he has headaches with all her prior pregnancies. She refers good movemen ts and denies any gush of vaginal fluids or vaginal bleeding. Verbal consent obtained from patient to discuss history, lab results, treatment, plan and any other pertinent information in fron t of patient's companions. history: : 3 Term: 0 : 2 Living children: 6 Previous : x2 Current : EDC: 10/01/19 EGA (weeks/days): 22 3/7 weeks Past medical history: Preeclampsia with last pre gnancy Past surgical history: C-sec tion (x2), appendectomy, cholecystectomy, Tonsills, Right arm surgery Social history: Denies Medications: Home Medications: Medication Dose/Rte/Freq Days Qty Entered Last Max Daily Dose Reviewed PNV WITH 1 CAP PO DAILY 08/04/16 05/30/19 CA/IRON/FA/DHA 0946 1906 (PRENATE ESSENTIAL) Strength: 1 EACH CAP LABETALOL (TRANDATE) 05/30/19 05/30/19 Strength: 100 MG TAB 1904 1905 Allergies Coded Allergies: codeine (BREAKS OUT 02/05/17) Review of Systems Additional notes: Constitutional: Denies: chills, fatigue, fever, generalized weak ness, lethargy, malaise. Respiratory: Denies: productive cough (sputum), SOB. GI: Refers: nausea Denies: abdominal pain, constipation, diarrhea, vomiting. : Denies: urgency, vaginal bleeding. Neuro: Refers: headache and one episode of left eye charles aters Objective General VS: Patient Weight Weight (lb): 280 Weight (oz): Weight (kg): 127.006 Physical Exam Additional comments: Gen: AAOx3 Lungs: normal respiratory effort Neuro: Exam: alert, oriented x3 Abdomen: gravid, soft Uterine activity: Monitor: toco Frequency (description): none Frequency (minutes): none PARKING TECHNICIAN: Normal exteral genitalia Cervical/ exam: Speculum exam: no discharge Dilatation (cm): closed Effacement (%): thick station: high Presentation: Membrane status: IM FHR evaluation: FHR Doppler: 155 BPM Diagnosis, Assessment Plan Diagnosis, Assessment Plan Problem List/A P: 1. 22 weeks gestation of Free Text A P: initial exam 1934 Patient presents due to pelvic pressure, crampin g and headache. Will send UA Re-evaluation 2019 UA negative. Patient refers feeling much better 28 y/o IUP 22 3/7 presented due to cramp ing and pelvic pressure. Patient found to have discomfort of pregancy. Pa tent found to be hemodynamically stable with normal normal vital signs, category I strip and found not to be in labor. Oriented on discha rge and labor precautions as well as kick counts and she voiced understanding will have her follow-up with her BEATER LEAD Assessment: no evidence labor Plan: discharge home Plan discussed with: patient, family, nurse, Dr Feldman at 2032 RPT #:[id number] END OF REPORT 2019-05-30 19:55:00-00:00 [facility] ([facility]) OB Medical Screening Exam REPORT#:[id number] REPORT STATUS: Signed DATE:05/30/19 TIME: 1954 PATIENT: LIOR HUNT UNIT #: [id number] ROOM/BED: : 91 AGE: 28 SEX: F ATTEND: Roxana Valadez MD ADM DT: AUTHOR: Roxana Bender MD * ALL edits or amendments must be made on the el ectronic/computer document * Medical Screening Exam Provider Attestation Comments: 28 y/o IUP 22 04/21 presents due to crampi ng and pelvic pressure. at 195 RPT #:[id number] END OF REPORT 2016-09-30 04:32:46-00:00 [facility] Discharge Summary PATIENT NAME: LIOR HUNT PHYSICIAN: Archana Admitted: MR NUMBER: [id number] DISCHARGED: 09/21/2016 12:0 0:00 REASON FOR ADMISSION: Ms. Hunt is a 25-year-ol d female with a past psychiatric history of MDD and currently 14 weeks , who presented for threatening self-harm with a knife and to overdose with pill of bottles due to relationship issues, and life str essors. She has been arguing with her parents, especially her mom due to bein g overbearing. She does also fight with her boyfriend due to finances. She de nied SI, HI, or AVH. FINAL DIAGNOSES: AXIS I: Adjustment disorder. AXIS II: None. AXIS III: with twins. AXIS IV: Stress with previous living situation a nd finances. AXIS V: Global assessment of functioning 60. PRINCIPAL PROCEDURES: Psychopharmacotherapy. SPECIAL PROCEDURES: None. HOSPITAL COURSE: Mr. Hunt is a 25-year-old [place] female that was admitted to Dr. Jannie Chavez's team from 09/18 to 09/21/2016. The patient is on unit restrictions along with a criss pement and standard PICU precautions. The patient refused medications as she was . She reported symptom improvement on 09/20/2016 statmiguel ángel heck that she thought groups helpful. The resident observed the patient and r eacting laughing on the unit. The patient denied SI and was future orien tita planning to move out of her parents house and with her boyfriend to his grandmother's house. She states she would not harm herself because "I hav e my son and to look for." She states that if she has thoughts of yolanda f harm in the future she will contact her dad or the crisis management line. S he does not have access to guns around her. She was provided resources for counseling services as well as the counseling hotline and her discharge bienvenido rwcruz. We spoke with the patient's father, Mr. Lev Hunt [phone] who stated that he feels she is not danger to herself and that she is safe to come home. She will be with family continuously over the next few days, the patient continued to attend group therapy, on day of discharge, she was deem ed suitable for discharge based on symptoms improvement in her mood, stati ng that she was happy and energetic. In addition, her sleep, energy and co ncentration has all improved. She no longer had SI, HI, AVH, suicida l ideation, homicidal ideation or auditory or visual hallucinations. T he patient denied all 3 of those. The patient's father will pick her up thi s morning. MENTAL STATUS EXAMINATION ON DISCHARGE. BEHAVIOR: No acute distress. APPEARANCE: Groomed. COGNITION: Alert and oriented x4. SPEECH: Regular rate and rhythm. MOOD: Happy. AFFECT: Congruent. THOUGHT PROCESS: Linear. THOUGHT CONTENT: No suicidal ideation. No homici nadege ideation. [facility] Discharge Summary PATIENT NAME: LIOR HUNT Ayah PHYSICIAN: Archana Admitted: MR NUMBER: [id number] DISCHARGED: 09/21/2016 12:0 0:00 REASON FOR ADMISSION: Ms. Hunt is a 25-year-ol d female with a past psychiatric history of MDD and currently 14 weeks , who presented for threatening self-harm with a knife and to overdose with pill of bottles due to relationship issues, and life str essors. She has been arguing with her parents, especially her mom due to bein g overbearing. She does also fight with her boyfriend due to finances. She de nied SI, HI, or AVH. FINAL DIAGNOSES: AXIS I: Adjustment disorder. AXIS II: None. AXIS III: with twins. AXIS IV: Stress with previous living situation a nd finances. AXIS V: Global assessment of functioning 60. PRINCIPAL PROCEDURES: Psychopharmacotherapy. SPECIAL PROCEDURES: None. HOSPITAL COURSE: Mr. Hunt is a 25-year-old Cau cas[place] female that was admitted to Dr. Jannie Chavez's team from 09/18 to 09/21/2016. The patient is on unit restrictions along with a criss pement and standard PICU precautions. The patient refused medications as she was . She reported symptom improvement on 09/20/2016 stati ng that she thought groups helpful. The resident observed the patient and r eacting laughing on the unit. The patient denied SI and was future orien tita planning to move out of her parents house and with her boyfriend to his grandmother's house. She states she would not harm herself because "I hav e my son and to look for." She states that if she has thoughts of yolanda f harm in the future she will contact her dad or the crisis management line. S he does not have access to guns around her. She was provided resources for counseling services as well as the counseling hotline and her discharge [facility]. We spoke with the patient's father, Mr. Lev Hunt [phone] who stated that he feels she is not danger to herself and that she is safe to come home. She will be with family continuously over the next few days, the patient continued to attend group therapy, on day of discharge, she was deem ed suitable for discharge based on symptoms improvement in her mood, stati ng that she was happy and energetic. In addition, her sleep, energy and co ncentration has all improved. She no longer had SI, HI, AVH, suicida l ideation, homicidal ideation or auditory or visual hallucinations. T he patient denied all 3 of those. The patient's father will pick her up thi s morning. MENTAL STATUS EXAMINATION ON DISCHARGE. BEHAVIOR: No acute distress. APPEARANCE: Groomed. COGNITION: Alert and oriented x4. SPEECH: Regular rate and rhythm. MOOD: Happy. AFFECT: Congruent. THOUGHT PROCESS: Linear. THOUGHT CONTENT: No suicidal ideation. No homici nadege ideation. Patient Name: LIOR HUNT [id number] PERCEPTION: No auditory or visual hallucination. INSIGHT: Good. JUDGEMENT: Good. GAIT: Within normal limits. The patient's parents are discharged to her boyf rigerald's house with his grandmother. LABORATORY DATA: Blood alcohol negative, drug a U9 negative, urin glenys positive. RPR negative. DRUG INTERACTIONS: None. DISCHARGE MEDICATIONS: None. The patient stated she did not want to take anything while she was . DISCHARGE INSTRUCTIONS: Provided to the patient. PHYSICAL ACTIVITY: As tolerated. DRIVING RESTRICTIONS: None. DIET RESTRICTIONS: None. FOLLOWUP: The patient plans to followup to [facility] at [phone] and has been given specific [facility] ructions on how to get to this appointment. Ms. Hunt is currently stable and has not required any medications. The patient's prognosis is good. Sis aly patient has been instructed to call [facility] in [place] and to set up a followup appointment. The patient has also met w [facility] [employer] worker to obtain appropriate followup paperwork. The portance of following through with this plan has been reviewed with sis aly patient, with the understanding that this will be great for her re covery. She has been given the information about family assistance so that she can obtain the therapy. The patient has also been given the [facility] hotline, which is [phone]. MD Jannie Mendoza MD IP/SUM TD: 09/28/2016 09:29 Electronically Authenticated by: Kacy Magaña MD On 09/30/2016 04:30 AM CDT Patient Name: LIOR HUNT [id number] PERCEPTION: No auditory or visual hallucination. INSIGHT: Good. JUDGEMENT: Good. GAIT: Within normal limits. The patient's parents are discharged to her boyf rigerald's house with his grandmother. LABORATORY DATA: Blood alcohol negative, drug a U9 negative, urin glenys positive. RPR negative. DRUG INTERACTIONS: None. DISCHARGE MEDICATIONS: None. The patient stated she did not want to take anything while she was . DISCHARGE INSTRUCTIONS: Provided to the patient. PHYSICAL ACTIVITY: As tolerated. DRIVING RESTRICTIONS: None. DIET RESTRICTIONS: None. FOLLOWUP: The patient plans to followup to [facility] at [phone] and has been given specific [facility] ructions on how to get to this appointment. Ms. Hunt is currently stable and has not required any medications. The patient's prognosis is good. alexa patient has been instructed to call [facility] in [place] and to set up a followup appointment. The patient has also met w [facility] [employer] worker to obtain appropriate followup paperwork. The portance of following through with this plan has been reviewed with sis aly patient, with the understanding that this will be great for her re covery. She has been given the information about family assistance so that she can obtain the therapy. The patient has also been given the [facility] hotline, which is [phone]. MD Jannie Mendoza MD IP/SUM TD: 09/28/2016 09:29 Electronically Authenticated by: Kacy Magaña MD On 09/30/2016 04:30 AM CDT Electronically Authenticated by: Jannie Chavez MD On 10/05/2016 02:11 PM CDT 2016-09-25 15:22:57-00:00 [facility] History and Physical PATIENT NAME: LIOR HUNT PHYSICIAN: Adrianne García Admitted: MR NUMBER: [id number] DISCHARGED: 09/21/2016 12:0 0:00 INFORMANT: The patient. CHIEF COMPLAINT: "I was overwhelmed." HISTORY OF PRESENT ILLNESS: The patient is a 25- year-old female with a self-reported past psychiatric history of depression that is 14 weeks and presented today for threatening yolanda f-harm with a knife. She is presenting today in the context of feeling overw helmed after an argument with her mom and due to financial stressors. She has been arguing with her mom about moving out since February 2016 and says she is overwhelmed because she is an adult who wants to make decisions and her mom is "overbearing." This is in regards to financial stress because her pierre marcos currently works at [employer] and her mom says they cannot move ou t because they are not making enough money. The patient states, however, that she has a plan to move out with her boyfriend into his grandmother's house. She currently denies feeling depressed or anxious. She denies SI/HI/A VH, and reports she just needs a place to get away from her current envir onment at this time. The patient denies any issues with sleep or appetite . Negative for PTSD or abuse history. denies any substance abuse history. PAST PSYCHIATRIC HISTORY: At the age of 17, the patient's best friend in an auto accident causing her to feel depresse d and have suicidal ideation. This lasted for a couple of months and the tho ent was started on Zoloft, but stopped it after this time period because sh e felt it made her feel irritable. Since then, she denies any other time s in which she is depressed or having suicidal ideation. Denies attempts. De nies any previous psychiatric hospitalizations. PAST MEDICAL HISTORY: None. REVIEW OF SYSTEMS: General: Negative. HEENT: Neg ative. CV: Negative. Respiratory: Negative. GI/: Negative. MS: Alexsandra olvera. Endocrine: Negative. Neuro: Negative. Skin: Negative. HOME MEDICATIONS: None. STRESSORS: Dispute with mom, financial stressors , household with mom, planning to move out, is currently brianda nur provider. PHYSICAL EXAMINATION: VITAL SIGNS: Temperature 99.1, pulse 99, respira tions 20, blood pressure 119/60. MENTAL STATUS EXAM: General/Appearance: Cooperat kayla, age appropriate, good eye contact. Cognition: Grossly intact. Speech: Fair articulation. Mood: Stressed. Affect: Tearful. Thought Process: Chitra ear. Thought Content: Negative for suicidal ideation, negative homicid al ideation. Perception: No AVH. Insight: Fair. Judgment: Fair. GAIT/STAT ION: Ambulating. FAMILY PSYCH HISTORY: Father bipolar disorder. [facility] History and Physical LABS: CBC, CMP, TSH, UA within normal limits. Bl ood alcohol MARITO 9 negative. RPR nonreactive. Serum positive. ASSESSMENT: The patient is a 25-year-old Caucasi an female with a self-reported past psych history of depression, that is 14 weeks' , who presented today for threatening self-harm wi th a knife. She is presenting in the context of feeling overwhelmed after an argument with her mom and due to financial stressors. On initial a followup interview today with the team, she reports she is feeling better after getting away from her mom and her boyfriend will be moving their stuff out over the weekend. She feels environmental change will greatly improve her situation. The patient is interested in staying over the weekend and pa rticipating in groups. She is also requesting discharge by Wednesday because s he has an [facility] appointment for first trimester ultrasound. She will call da d today to discuss transportation options in the future. At this ti mn the patient states she could not harm herself because she has a 4-y ear-old son, her twins and to live for. Overall, it appears that th e patient is under acute stress and experiencing adjustment at this time. SUICIDE RISK ASSESSMENT: RISK: Dispute with mom, financial stress, previo us suicidal ideation. Protective: The patient does not have any previous attempts. States she could not harm her self because she has her to live for. She does not have access to firearms. OVERALL RISK: Low risk for self-harm. DIAGNOSIS: Adjustment. PLAN: The patient will be admitted to Dr. Heck [facility] inpatient unit and placed on suicide precautions. She will not be started on any medications as none are indicated at this time. She will be observed over the weekend and reassessed for suicidal risk, en couraged to attend groups and one-to-one will also be ordered. Benadryl 25 mg at bedtime as needed will be provided for sleep. MD JULIANNE Casarez/DARRYL/ROSALIO/JAY TD: 09/20/2016 21:25 Electronically Authenticated and Edited by: Adrianne Lala MD On 09/25/2016 03:22 PM CDT Electronically Authenticated and Edited by: Ryan Heck MD On 11/06/2016 04:06 PM CDT
[2022-10-11] MEDS ORDERED: KETOROLAC 30 MG/ML INJ ONE (16:52)
--- NOTE | 2022-10-11 18:06 | RAD REPORT ---
EXAM DESCRIPTION: RAD - Elbow Right 3 View - 10/11/2022 5:43 pm CLINICAL HISTORY: Pain;Smash injury COMPARISON: No comparisons TECHNIQUE: Right elbow, 3 views. FINDINGS: No fracture is identified. No elevated posterior fat pad to suggest an effusion. Healed fr acture with deformity at the distal humerus, with fixation hardware in place. There is no dislocation or periosteal reaction noted. No foreign body or other soft tissue abnormalit y. IMPRESSION: No acute osseous abnormality. Healed fracture with deformity at the distal humerus, with fixation hardware in place.
--- NOTE | 2022-10-11 18:10 | ER ---
Nurse's Notes [facility] Name: Mikki Stevenson Age: 31 yrs Sex: Female : 1990 Arrival Date: 10/11/2022 Time: 16:17 Bed 9 Private MD: Bong Tran E Diagnosis: Lateral epicondylitis, right elbow Presentation: 10/11 16:32 Chief complaint: Patient states: she fell last night when she stepped off a curb. ap3 patient denies feeling pain last night but woke up with right elbow pain that radiates into her right hand. patient rates the pain as a 9/10 on the pain scale at this time. Coronavirus screen: At this time, the client does not indicate any symptoms associated with coronavirus-19. Ebola Screen: No symptoms or risks identified at this time. Initial Sepsis Screen: Does the patient meet any 2 criteria? No. Patient's initial sepsis screen is negative. Does the patient have a suspected source of infection? No. Patient's initial sepsis screen is negative. Risk Assessment: Do you want to hurt yourself or someone else? Patient reports no desire to harm self or others. Onset of symptoms was October 10, 2022. 16:32 Method Of Arrival: Ambulatory ap3 16:32 Acuity: SOURAV 4 ap3 Triage Assessment: 16:34 General: Appears uncomfortable, Behavior is calm, cooperative, appropriate for age. ap3 Pain: Complains of pain in right elbow Pain radiates to right arm Pain currently is 9 out of 10 on a pain scale. Pain began 1 day ago. Neuro: Level of Consciousness is awake, alert, obeys commands, Oriented to person, place, time, situation. Cardiovascular: Patient's skin is warm and dry. Respiratory: Airway is patent Respiratory effort is even, unlabored, Respiratory pattern is regular, symmetrical. Musculoskeletal: Reports pain in right elbow. Injury Description: fall. Historical: - Allergies: 16:33 Codeine; ap3 - Home Meds: 16:33 None [Active]; ap3 - PMHx: 16:33 None; ap3 - PSHx: 16:33 section; Appendectomy; Cholecystectomy; right arm; ap3 - Immunization history:: Client reports receiving the 2nd dose of the Covid vaccine. - Social history:: Smoking status: Reported history of juuling and/or vaping. Screenin:35 [facility] ED Fall Risk Assessment (Adult) History of falling in the last 3 months, ap3 including since admission Yes- single mechanical fall (1 pt) Confusion or Disorientation No (0 pts) Intoxicated or Sedated No (0 pts) Impaired Gait No (0 pts) Mobility Assist Device Used No (0 pt) Altered Elimination No (0 pt). Abuse screen: Denies threats or abuse. Nutritional screening: No deficits noted. Tuberculosis screening: No symptoms or risk factors identified. Vital Signs: 16:32 BP 131 / 64; Pulse 83; Resp 17; Temp 98.2; Pulse Ox 97% ; Weight 108.86 kg; Pain 9/10; ap3 16:32 Pain Scale: Adult ap3 ED Course: 16:20 Patient arrived in ED. mr 16:20 Bong Tran MD is Private Physician. mr 16:29 Trista Tony FNP-C is [facility]. snw 16:29 Abdiel Reinoso MD is Attending Physician. snw 16:32 Caroline Tolliver, JANEEN is Primary Nurse. ap3 16:33 Triage completed. ap3 16:35 Arm band placed on left wrist. ap3 16:35 Patient has correct armband on for positive identification. Bed in low position. Call ap3 light in reach. Side rails up X 1. Pulse ox on. NIBP on. 17:44 Elbow Right 3 View XRAY In Process Unspecified. EDMS 18:40 Provided Education on: discharge education. ap3 18:40 No provider procedures requiring assistance completed. Patient did not have IV access ap3 during this emergency room visit. Administered Medications: 16:45 Drug: Ketorolac IM 30 mg Route: IM; Site: left deltoid; ap3 18:40 Follow up: Response: No adverse reaction; Pain is decreased ap3 Medication: 18:40 VIS not applicable for this client. ap3 Outcome: 18:09 Discharge ordered by . snw 18:40 Discharged to home ambulatory. ap3 18:40 Condition: good 18:40 Discharge instructions given to patient, Instructed on discharge instructions, follow up and referral plans. medication usage, Demonstrated understanding of instructions, follow-up care, medications, Prescriptions given X 1. 18:41 Patient left the ED. ap3 Signatures: Dispatcher [employer] EDDC Trista Tony FNP-C FNP-Csnw Parveen, Julia mr Sharee, Caroline, RN RN ap3
--- NOTE | 2022-10-11 18:10 | EDPHYS ---
Physician Documentation [facility] Name: Mikki Stevenson Age: 31 yrs Sex: Female : 1990 Arrival Date: 10/11/2022 Time: 16:17 Bed 9 Private MD: Bong Tran E ED Physician Abdiel Reinoso HPI: 10/11 17:06 This 31 yrs old Female presents to ER via Ambulatory with complaints of Arm Injury. snw 17:06 The patient or guardian complains of injury, pain, that is acute. The complaints affect snw the right elbow. Context: The problem was sustained outdoors, resulted from tripped over a curb, landed on right elbow, pt is left handed. Onset: The symptoms/episode began/occurred suddenly, last night. Associated signs and symptoms: Pertinent positives: decreased range of motion, pain. Severity of symptoms: At their worst the symptoms were moderate, severe. The patient has experienced similar episodes in the past, surgery x 2 to right elbow. Historical: - Allergies: 16:33 Codeine; ap3 - Home Meds: 16:33 None [Active]; ap3 - PMHx: 16:33 None; ap3 - PSHx: 16:33 section; Appendectomy; Cholecystectomy; right arm; ap3 - Immunization history:: Client reports receiving the 2nd dose of the Covid vaccine. - Social history:: Smoking status: Reported history of juuling and/or vaping. ROS: 17:05 Constitutional: Negative for fever, chills, and weight loss, Eyes: Negative for injury, snw pain, redness, and discharge, ENT: Negative for injury, pain, and discharge, Neck: Negative for injury, pain, and swelling, Cardiovascular: Negative for chest pain, palpitations, and edema, Respiratory: Negative for shortness of breath, cough, wheezing, and pleuritic chest pain, Abdomen/GI: Negative for abdominal pain, nausea, vomiting, diarrhea, and constipation, Back: Negative for injury and pain, : Negative for injury, bleeding, discharge, and swelling, MS/Extremity: Positive for injury negative for deformity, Skin: Negative for injury, rash, and discoloration, Neuro: Negative for headache, weakness, numbness, tingling, and seizure, Psych: Negative for depression, anxiety, suicide ideation, homicidal ideation, and hallucinations. Exam: 17:04 Constitutional: This is a well developed, well nourished patient who is awake, alert, snw and in no acute distress. Head/Face: Normocephalic, atraumatic. Eyes: Pupils equal round and reactive to light, extra-ocular motions intact. Lids and lashes normal. Conjunctiva and sclera are non-icteric and not injected. Cornea within normal limits. Periorbital areas with no swelling, redness, or edema. Chest/axilla: Normal chest wall appearance and motion. Nontender with no deformity. No lesions are appreciated. Cardiovascular: Regular rate and rhythm with a normal S1 and S2. No gallops, murmurs, or rubs. Normal PMI, no JVD. No pulse deficits. Abdomen/GI: Soft, non-tender, with normal bowel sounds. No distension or tympany. No guarding or rebound. No evidence of tenderness throughout. Back: No spinal tenderness. No costovertebral tenderness. Full range of motion. Skin: Warm, dry with normal turgor. Normal color with no rashes, no lesions, and no evidence of cellulitis. Neuro: Awake and alert, GCS 15, oriented to person, place, time, and situation. Cranial nerves II-XII grossly intact. Motor strength 5/5 in all extremities. Sensory grossly intact. Cerebellar exam normal. Normal gait. Psych: Awake, alert, with orientation to person, place and time. Behavior, mood, and affect are within normal limits. 17:04 Musculoskeletal/extremity: Extremities: grossly normal except: noted in the right elbow: decreased ROM, tenderness, ROM: limited active range of motion due to pain, limited passive range of motion due to pain, Circulation is intact in all extremities. the right elbow Vital Signs: 16:32 BP 131 / 64; Pulse 83; Resp 17; Temp 98.2; Pulse Ox 97% ; Weight 108.86 kg; Pain 9/10; ap3 16:32 Pain Scale: Adult ap3 MDM: 16:33 Patient medically screened. steve 17:07 Differential diagnosis: closed fracture. Data reviewed: vital signs, nurses notes. I snw considered the following discharge prescriptions or medication management in the emergency department Medications were administered in the Emergency Department. See MAR. Counseling: I had a detailed discussion with the patient and/or guardian regarding the historical points, exam findings, and any diagnostic results supporting the discharge/admit diagnosis, radiology results, the need for outpatient follow up, for definitive care, to return to the emergency department if symptoms worsen or persist or if there are any questions or concerns that arise at home. Special discussion: Based on the history and exam findings, there is no indication for further emergent testing or inpatient evaluation. I discussed with the patient/guardian the need to see the orthopedic surgeon for further evaluation of the symptoms. I discussed with the patient/guardian the need to see the primary care provider for further evaluation of the symptoms. 17:38 Independent interpretation of the following test(s) in the Emergency Department X-Ray: snw My interpretation is no new fx, +hardware. 10/11 16:36 Order name: Elbow Right 3 View XRAY; Complete Time: 18:09 snw 10/11 16:36 Order name: Sling; Complete Time: 16:45 snw Administered Medications: 16:45 Drug: Ketorolac IM 30 mg Route: IM; Site: left deltoid; ap3 18:40 Follow up: Response: No adverse reaction; Pain is decreased ap3 Disposition Summary: 10/11/22 18:09 Discharge Ordered Location: Home snw Condition: Stable snw Diagnosis - Lateral epicondylitis, right elbow snw Followup: snw - With: Emergency Department - When: As needed - Reason: Worsening of condition Followup: snw - With: Private Physician - When: 2 - 3 days - Reason: Recheck today's complaints, Continuance of care, Re-evaluation by your physician Discharge Instructions: - Discharge Summary Sheet snw - Tennis Elbow snw - RICE Therapy for Routine Care of Injuries snw - Tendinitis snw Forms: - Medication Reconciliation Form snw - Thank You Letter snw - Antibiotic Education snw - Prescription Opioid Use snw - Patient Portal Instructions snw - Leadership Thank You Letter snw Prescriptions: - Mobic 7.5 mg Oral Tablet - take 1 tablet by ORAL route once daily take with food; 20 tablet; Refills: 0, snw Product Selection Permitted Signatures: Dispatcher [employer] Abdiel Yoon MD MD cha Waters, Shelly, [employer]-C SUPER[employer]-Csnw Caroline Tolliver RN RN ap3
[2022-10-11 18:57] VITALS: BP 131/64; TEMP 98.2; O2SAT 97
== END 2022-10-11 18:41 | disposition home or self-care (01) ==
LOC: ER 16:17
DX: M77.11 Lateral epicondylitis, right elbow (principal); Z88.5 Allergy status to narcotic agent
CPT/HCPCS: 96372; 99284